=== PATIENT | female | born 1945 | race Caucasian/White ===

== ENCOUNTER → 2018-01-16 09:14 | Outpatient (CLI) | payer MEDICARE, BC, SELFPAY ==
--- NOTE | 2018-01-16 09:17 | RAD_ITS ---
STUDY: X-RAY - RIGHT KNEE REASON FOR EXAM: Knee pain after walking injury 1 month ago. TECHNIQUE: 3 view(s) of the knee. COMPARISON: None. FINDINGS: There is osteopenia. Normal visualized distal femur. There is a band of subchondral sclerosis in the medial tibial plateau. Normal proximal tibiofibular articulation. Normal medial femorotibial compartment. Normal lateral femorotibial compartment. Normal patellofemoral articulation. There is chondrocalcinosis of the medial and lateral menisci. RAD/Knee 4 or More Views IMPRESSION: Band of subchondral sclerosis in the medial tibial plateau, suspicious of an insufficiency fracture. Chondrocalcinosis in the menisci. Electronically Signed: Giovany Joel MD at 15:49 EDT Tel , Service support ,
== END ==
PROVIDERS: Family Provider Internal Medicine; PCP Internal Medicine; Visit Provider Orthopaedic Surgery
DX: M25.561 Pain in right knee (principal)
CPT/HCPCS: 73564

== ENCOUNTER → 2023-08-27 | Outpatient (CLI) | payer MEDICARE, BC, SELFPAY ==
[2023-08-27 17:51] LABS: Pathologist Comment May follow
[2023-08-27 18:29] LABS: Synovial Fld Mononuclear WBC # 0.586 10^3/ul; Synovial Fld Mononuclear WBC % 85.1 %; Synovial Fld Polynuclear WBC # 0.103 10^3/uL; Synovial Fld Polynuclear WBC % 14.9 %
[2023-08-27 19:45] LABS: Lymph 12 %; Monocyte /Synovial Fluid 8 %; Neutrophil 9 % (0-25); Other Cell /Synovial Fluid 71 %
[2023-08-27 19:48] LABS: AUTO B FLUID DILUENT BKGD CT WBC <0.1 RBC <0.01 (W<.1,R<.01); Appearance /Synovial Fluid Cloudy (CLEAR); CRYSTALS, BODY FLUID NO CRYSTALS SEEN; Color / Synovial Fluid AMBER (Pale Yellow); Source / Synovial Fluid LEFT KNEE; Source- Body Fluid SYNOVIAL
[2023-08-27 19:49] LABS: RBC /Synovial Fluid 0.013 10^6/uL (0)
--- OUTSIDE RECORDS SUMMARY | 2023-08-27 20:08 | XMS RPT_ITS | CCD ---
Author Name Unknown Address [address] [place] [address] Organization [facility] Care Team Providers Care Knock Up Assembler Name Role Phone Butler, Loren S Primary Care Unavailable Butler, Loren S Primary Care Unavailable Butler, Loren S Primary Care Unavailable Butler, Loren S Primary Care Unavailable Butler, Loren S Primary Care Unavailable Seth Alexandra Unavailable Unavaila ble Roxane, Avirup Unavailable Unavailable Butler, Loren Unavailable Unavailable Butler, Loren S Unavailable Unavailable Roxane, Avirup Unavailable Unavailable Merari Kevin MD Primary Care Provider [phone] Merari Kevin MD Primary Care Provider [phone] MAYA DURAN Attending Unavailable MERARI KEVIN Primary Care Unavailable Merari Kevin MD Primary Care Provider Sis Orozcoly S Unavailable Unavailable Unavailable Merari Kevin MD Primary Care Provider Merari Kevin MD Primary Care Provider Maya Duran MD Unavailable Santi ANTHONY, Imani Sabry Unavailable [phone] Tyree KENNEDY DO, W. Don Unavailable Merari Kevin MD Primary Care Provider Merari Kevin MD Primary Care Provider Maya Duran MD Unavailable Santi ANTHONY, Imani Sabry Unavailable [phone] Tyree KENNEDY, DO WMinnie Don Unavailable HerberthMerari knott MD Unavailable HerberthMerari knott MD Primary Care Provider [phone] HERBERTH, MERARI Referring Unavailable HERBERTH, MERARI Attending Unavailable HERBERTH, MERARI Primary Care Unavailable KENDRAICARDNEL StubbsO KODI Referring Unavail able TYREERDMATILDA StubbsSTE Attending Unavail able HERBERTH, MERARI Primary Care Unavailable GOMEZ, JAYLONPREET Attending Unavailable HERBERTH, MERARI Primary Care Unavailable Jony Cruz DO Primary Care Provide r JONY CRUZ Referring Unavail able JONY CRUZ Primary Care Unavail able HERBERTH, MERARI Primary Care Unavailable KENDRAICARDINELO KODI Referring Unavail able KENDRAICARDMATILDA StubbsSTE Attending Unavail able HERBERTH, MERARI Primary Care Unavailable BRUNICARDINELO KODI Attending Unavail able BRUNICARDI MATILDA KODI Referring Unavail able HERBERTH, MERARI Primary Care Unavailable VELLANKI, VANNESA Admitting Unavailable HERBERTH, MERARI Primary Care Unavailable DWAYNE GOMEZ Referring Unavailable CONSUELO GARCIA Attending Unavailable LITZY SOMMER Consulting Unavailabl e VELLANKI, VANNESA Attending Unavailable HERBERTH, MERARI Primary Care Unavailable HERBERTH, MERARI Primary Care Unavailable PATEL BLANKENSHIP Attending Unava ilable LE ANGLIN Attending Unavail able LE ANGLIN Admitting Unavail able HERBERTH, MERARI Primary Care Unavailable HERBERTH, MERARI Primary Care Unavailable BRUNICARDI, MATILDA KODI Admitting Unavail able VELLANKI, VANNESA Referring Unavailable HERBERTH, MERARI Primary Care Unavailable BRUNICARDI, MATILDA KODI Admitting Unavail able VELLANKI, VANNESA Referring Unavailable HERBERTH, MERARI Primary Care Unavailable HERBERTH, MERARI Primary Care Unavailable VELLANKI, VANNESA Admitting Unavailable VELLANKI, VANNESA Referring Unavailable JONY CRUZ Primary Care Unavail able HERBERTH, MERARI Primary Care Unavailable BRUNICARDI, MATILDA KODI Admitting Unavail able VELLANKI, VANNESA Referring Unavailable HERBERTH, MERARI Primary Care Unavailable BRUNICARDI, MATILDA KODI Referring Unavail able BRUNICARDI, MATILDA KODI Admitting Unavail able VELLANKI, VANNESA Referring Unavailable HERBERTH, MERARI Primary Care Unavailable BRUNICARDI, MATILDA KODI Admitting Unavail able VELLANKI, VANNESA Referring Unavailable HERBERTH, MERARI Primary Care Unavailable BRUNICARDI, MATILDA KODI Admitting Unavail able FRANCISCO RODARTE Attending Unavailable HERBERTH, MERARI Primary Care Unavailable SELF, SELF Referring Unavailable MUSTAPHA NJ Attending Unavailabl e HERBERTH, MERARI Primary Care Unavailable HERBERTH, MERARI Referring Unavailable MUSTAPHA NJ Attending Unavailabl e HERBERTH, MERARI Primary Care Unavailable HERBERTH, MERARI Referring Unavailable HERBERTH, MERARI Primary Care Unavailable MUSTAPHA NJ Referring Unavailabl e MUSTAPHA NJ Attending Unavailabl e MUSTPAHA NJ Referring Unavailabl e PRESTON VERA Attending Unavailable HERBERTH, MERARI Primary Care Unavailable MUSTAPHA NJ Referring Unavailabl e HERBERTH, MERARI Primary Care Unavailable YELENA POWER Attending Unavailable HERBERTH, MERARI Primary Care Unavailable MAYA DURAN Attending Unavailable LE ANGLIN Attending Unavail able HERBERTH, MERARI Referring Unavailable HERBERTH, MERARI Admitting Unavailable HERBERTH, MERARI Primary Care Unavailable LINNETTELE Attending Unavail able HERBERTH, MERARI Primary Care Unavailable JONY CRUZ Primary Care Unavail able JONY CRUZ Attending Unavail able JONY CRUZ Primary Care Unavail able ANDRIA BERGER Attending Unavailable JONY CRUZ Primary Care Unavail able JONY CRUZ Attending Unavail able ARLENE ANDERSON Attending Unavaila ble HERBERTH, MERARI Primary Care Unavailable BRUNICARDI, MATILDA KODI Attending Unavail able HERBERTH, MERARI Primary Care Unavailable HERBERTH, MERARI Primary Care Unavailable MARCOS HINDS Attending Unavailable HERBERTH, MERARI Primary Care Unavailable HERBERTH, MERARI Attending Unavailable Allergies Allergy Classification Reported Allergen(s) Allergy Type Date of Onset Reaction(s) Facility Sulfamethoxazole / Trimethoprim (3 sources) Sulfamethoxazole / Trimethoprim; Translations: [SULFAMETHOXAZOLE-T RIMETHOPRIM] Drug Allergy 11-30-19 21 [facility] Sulfonamides (antibiotic) (4 sources) Sulfonamides (Antibiotic); Translations: [SULFA (SULFONAMIDE ANTIBIOTICS)] Drug Allergy 11-09-19 21 [facility] (4 sources) Sulfamethoxazole / Trimethoprim; Translations: [Bactrim] Drug Allergy 05-01-[address] Work Phone: (4 sources) Sulfonamides (Antibiotic); Translations: [[facility]] Allergy to drug (finding) [address] Work Phone: (20 sources) Sulfamethoxazole / Trimethoprim; Translations: [SULFAMETHOXAZOLE-T RIMETHOPRIM] Drug Allergy 05-01-[address] [facility] (20 sources) Sulfonamides (Antibiotic); Translations: [SULFA (SULFONAMIDE ANTIBIOTICS)] Propensity to adverse reactions to drug 02-09-20 15 [facility] (20 sources) meloxicam; Translations: [MELOXICAM] Drug Allergy 05-22-20 21 [facility] (7 sources) Sulfonamides (Antibiotic) Propensity to adverse reactions to drug 02-09-20 15 [facility] (1 source) meloxicam Drug Allergy 05-22-20 21 [facility] Medications Current Medications Medication Drug Class(es) Dates Sig (Normalized) Sig (Original) ascorbic acid 1000 mg oral tablet (20 sources) Vitamin C take 1 tablet by zach th once daily ascorbic acid, vitamin C, (VITAMIN C) 1000 MG tablet Take 1 (one) tablet (1,000 mg total) by mouth daily . 0 Active Completed/Discontinued Medications Medication Drug Class(es) Dates Sig (Normalized) Sig (Original) amLODIPine 10 mg oral tablet (19 sources) Dihydropyridine Calcium Channel Elisabeth End: 07-16-2022 take 1 tablet by mouth once daily amLODIPine (NORVASC) 10 MG tablet Take 1 (one) tablet (10 mg total) by mouth daily . 0 07/16/2022 Discontinued Problems Active Problems Problem Classification Problem Date Documented Da te Episodic/Chronic Allergic reactions (4 sources) H/O: non-drug allergy; Translations: [Other allergy, other than to medicinal agents] Episodic Biliary tract disease (3 sources) Cholangiectasis; Translations: [Other specified diseases of biliary tract] Onset: 3 12-05-2022 Chronic Chronic ulcer of skin (1 source) Non-pressure chronic ulcer of other part of right foot with fat layer exposed; Translations: [Ulcer of other part of foot] Chronic Coronary atherosclerosis and other heart disease (20 sources) Coronary arteriosclerosis in [place] artery; Translations: [Atherosclerotic heart disease of [place] coronary artery without angina pectoris] Onset: 6 Chronic Disorders of lipid metabolism (17 sources) Hyperlipidemia; Translations: [Hyperlipidemia, unspecified] Onset: 3 Chronic Essential hypertension (20 sources) Hypertensive disorder; Translations: [Essential (primary) hypertension] Onset: 1 Chronic Gastroduodenal ulcer (except hemorrhage) (9 sources) Gastric ulcer; Translations: [Gastric ulcer, unspecified as acute or chronic, without hemorrhage or perforation] Onset: 3 03-20-2023 Chronic Genitourinary symptoms and ill-defined conditions (1 source) Dysuria; Translations: [Dysuria] Episodic Osteoarthritis (20 sources) Osteoarthritis of finger joint of right hand; Translations: [Primary osteoarthritis, right hand] Onset: 5 11-08-2020 Chronic Osteoporosis (20 sources) Osteoporosis; Translations: [Senile osteoporosis] Onset: 5 Chronic Other aftercare (2 sources) Other retirement (current) drug therapy; Translations: [Other buttermaker (current) drug therapy] Onset: 3 Episodic Other bone disease and musculoskeletal deformities (2 sources) Exostosis; Translations: [Other specified disorders of bone, ankle and foot] Episodic Other circulatory disease (1 source) Thready pulse; Translations: [Other specified symptoms and signs involving the circulatory and respiratory systems] Episodic Other connective tissue disease (5 sources) Pain in right foot; Translations: [Pain in right foot] Episodic Other ear and sense organ disorders (1 source) Cellulitis of pinna ; Translations: [Cellulitis of right external ear] 04-29-2023 Episodic Other eye disorders (16 sources) Disorder of bilateral optic nerves; Translations: [Other disorders of optic nerve, not elsewhere classified, bilateral] Onset: 1 06-10-2022 Chronic Other gastrointestinal disorders (20 sources) Irritable bowel syndrome; Translations: [Irritable bowel syndrome without diarrhea] Onset: 1 02-07-2021 Chronic Other injuries and conditions due to external causes (20 sources) At low risk for fall; Translations: [History of falling] Onset: 1 06-04-2021 Episodic Other injuries and conditions due to external causes (1 source) Foreign body in auricle; Translations: [Foreign body in right ear, initial encounter] 04-29-2023 Episodic Other nervous system disorders (20 sources) Spinal cord disease; Translations: [Disease of spinal cord, unspecified] Onset: 1 06-04-2021 Chronic Other non-traumatic joint disorders (4 sources) Swollen ankle region; Translations: [Effusion, unspecified ankle] Onset: 2 05-09-2022 Episodic Other screening for suspected conditions (not mental disorders or infectious disease) (1 source) Electrocardiogram abnormal; Translations: [Abnormal electrocardiogram [ECG] [EKG]] Episodic Peripheral and visceral atherosclerosis (3 sources) Peripheral vascular disease, unspecified; Translations: [Peripheral vascular disease, unspecified] Chronic Residual codes; unclassified (2 sources) Postoperative state; Translations: [Other specified postprocedural states] Episodic Retinal detachments; defects; vascular occlusion; and retinopathy (18 sources) Bilateral age-related nonexudative macular degeneration; Translations: [Nonexudative age-related macular degeneration, bilateral, stage unspecified] Onset: 0 06-10-2022 Chronic Rheumatoid arthritis and related disease (20 sources) Rheumatoid arthritis; Translations: [Rheumatoid arthritis, unspecified] Onset: 2 Chronic Spondylosis; intervertebral disc disorders; other back problems (6 sources) Other spondylosis, cervical region; Translations: [Other spondylosis, lumbosacral region] Onset: 3 Chronic Unclassified (1 source) [place] [facility] Physician Contact Required; Translations: [[place] [facility] Physician Contact Required] Onset: 3 Past or Other Problems Problem Classification Problem Date Documented Date Episodic/Chronic Abdominal pain (20 sources) Left lower quadrant pain; Translations: [Left lower quadrant pain] Onset: 11-22-2022 01-22-2023 Episodic Biliary tract disease (3 sources) Cholelithiasis with obstruction; Translations: [Calculus of gallbladder without cholecystitis with obstruction] Onset: 01-01-2023 12-05-2022 Episodic Immunizations and screening for infectious disease (20 sources) Patient encounter status; Translations: [Other specified vaccination] Onset: 05-26-2019 06-04-2021 Episodic Results Test Name Value Interpretation Reference Range Facil ity Vital Signs Date Time Vital Sign Value Performing Clinician Adina groves 07-17-2023 10:29-0500 Diastolic blood pressure 92 mm[Hg] Jonydamon Taylorran DO Work Phone: [facility] 07-17-2023 10:29-0500 Heart rate 55 /min Jony Nancy DO Work Phone: [facility] 07-17-2023 10:29-0500 Respiratory rate 16 /min Jony Cruz DO Work Phone: [facility] 07-17-2023 10:29-0500 SaO2% (BldA) [Mass fraction] 95 % Jonydamon GarciaNancy DO Work Phone: [facility] 07-17-2023 10:29-0500 Systolic blood pressure 150 mm[Hg] Jonydamon GarciaNancy DO Work Phone: [facility] 07-17-2023 10:23-0500 Body height 143.5 cm Jony Cruz DO Work Phone: [facility] 07-17-2023 10:23-0500 Body mass index (BMI) [Ratio] 17.44 kg/m2 Jonydamon Taylorran DO Work Phone: [facility] 07-17-2023 10:23-0500 Body temperature 97.81 [degF] Jony Nancy DO Work Phone: [facility] 07-17-2023 10:23-0500 Body weight 35.92 kg Jony Nancy DO Work Phone: [facility] 04-29-2023 10:42-0400 Body height 143.5 cm Andria Berger MD Work Phone: [facility] 04-29-2023 10:42-0400 Body mass index (BMI) [Ratio] 17.53 kg/m2 Andria Berger MD Work Phone: [facility] 04-29-2023 10:42-0400 Body temperature 97.9 [degF] Andria Berger MD Work Phone: [facility] 04-29-2023 10:42-0400 Body weight 36.11 kg Andria Berger MD Work Phone: [facility] 04-29-2023 09:23-0400 Diastolic blood pressure 107 mm[Hg] Jony Nancy DO Work Phone: [facility] 04-29-2023 09:23-0400 Heart rate 97 /min Jony Nancy DO Work Phone: [facility] 04-29-2023 09:23-0400 Systolic blood pressure 158 mm[Hg] Jony Nancy DO Work Phone: [facility] 04-29-2023 09:15-0400 Body height 143.5 cm Jony Nancy DO Work Phone: [facility] 04-29-2023 09:15-0400 Body mass index (BMI) [Ratio] 17.49 kg/m2 Jony Nancy DO Work Phone: [facility] 04-29-2023 09:15-0400 Body temperature 97.7 [degF] Jony Nancy DO Work Phone: [facility] 04-29-2023 09:15-0400 Body weight 36.02 kg Jony Nancy DO Work Phone: [facility] 04-29-2023 09:15-0400 Respiratory rate 16 /min Jony Nancy DO Work Phone: [facility] 03-20-2023 10:49-0400 Body height 143.5 cm eL Anglin MD Work Phone: [facility] 03-20-2023 10:49-0400 Body mass index (BMI) [Ratio] 17.31 kg/m2 Le Anglin MD Work Phone: [facility] 03-20-2023 10:49-0400 Body weight 35.65 kg Le Anglin MD Work Phone: [facility] 03-20-2023 10:49-0400 Diastolic blood pressure 95 mm[Hg] Le Anglin MD Work Phone: [facility] 03-20-2023 10:49-0400 Heart rate 58 /min Le Anglin MD Work Phone: [facility] 03-20-2023 10:49-0400 SaO2% (BldA) [Mass fraction] 91 % Le Anglin MD Work Phone: [facility] 03-20-2023 10:49-0400 Systolic blood pressure 137 mm[Hg] Le Anglin MD Work Phone: [facility] 02-20-2023 11:03-0400 Body height 143.5 cm Le Anglin MD Work Phone: [facility] 02-20-2023 11:03-0400 Body mass index (BMI) [Ratio] 17.31 kg/m2 Le Anglin MD Work Phone: [facility] 02-20-2023 11:03-0400 Body weight 35.65 kg Le Anglin MD Work Phone: [facility] 02-20-2023 11:03-0400 Diastolic blood pressure 94 mm[Hg] Le Anglin MD Work Phone: [facility] 02-20-2023 11:03-0400 Heart rate 62 /min Le Anglin MD Work Phone: [facility] 02-20-2023 11:03-0400 SaO2% (BldA) [Mass fraction] 98 % Le Anglin MD Work Phone: [facility] 02-20-2023 11:03-0400 Systolic blood pressure 143 mm[Hg] Le Anglin MD Work Phone: [facility] 01-21-2023 10:38-0400 Body height 144 cm Mustapha Heaton Work Phone: [facility] 01-21-2023 10:38-0400 Body mass index (BMI) [Ratio] 16.8 kg/m2 Mustapha Nj MD Work Phone: [facility] 01-21-2023 10:38-0400 Body weight 34.84 kg Mustapha Heaton Work Phone: [facility] 01-21-2023 10:38-0400 Diastolic blood pressure 90 mm[Hg] Mustapha Nj MD Work Phone: [facility] 01-21-2023 10:38-0400 Systolic blood pressure 160 mm[Hg] Mustapha Nj MD Work Phone: [facility] 01-14-2023 17:22-0400 Body height 144.8 cm Merari Kevin MD Work Phone: [facility] 01-14-2023 17:22-0400 Body mass index (BMI) [Ratio] 17.01 kg/m2 Merari Kevin MD Work Phone: [facility] 01-14-2023 17:22-0400 Body temperature 98.29 [degF] Merari Kevin MD Work Phone: [facility] 01-14-2023 17:22-0400 Body weight 35.65 kg Merari Kevin MD Work Phone: [facility] 01-14-2023 17:22-0400 Diastolic blood pressure 87 mm[Hg] Merari Kevin MD Work Phone: [facility] 01-14-2023 17:22-0400 Heart rate 58 /min Merari Kevin MD Work Phone: [facility] 01-14-2023 17:22-0400 Respiratory rate 16 /min Merari Kevin MD Work Phone: [facility] 01-14-2023 17:22-0400 SaO2% (BldA) [Mass fraction] 97 % Merari Kevin MD Work Phone: [facility] 01-14-2023 17:22-0400 Systolic blood pressure 130 mm[Hg] Merari Kevin MD Work Phone: [facility] 12-20-2022 09:05-0400 Body temperature 97.3 [degF] [facility] Work Phone: [facility] 12-20-2022 09:05-0400 Diastolic blood pressure 99 mm[Hg] [facility] Work Phone: [facility] 12-20-2022 09:05-0400 Heart rate 55 /min [facility] Work Phone: [facility] 12-20-2022 09:05-0400 Systolic blood pressure 155 mm[Hg] [facility] Work Phone: [facility] 07-16-2022 13:57-0500 Body height 144.8 cm Merari Kevin MD Work Phone: [facility] 07-16-2022 13:57-0500 Body mass index (BMI) [Ratio] 18.39 kg/m2 Merari Kevin MD Work Phone: [facility] 07-16-2022 13:57-0500 Body temperature 98.01 [degF] Merari Kevin MD Work Phone: [facility] 07-16-2022 13:57-0500 Body weight 38.56 kg Merari Kevin MD Work Phone: [facility] 07-16-2022 13:57-0500 Diastolic blood pressure 71 mm[Hg] Merari Kevin MD Work Phone: [facility] 07-16-2022 13:57-0500 Heart rate 69 /min Merari Kevin MD Work Phone: [facility] 07-16-2022 13:57-0500 Respiratory rate 16 /min Merari Kevin MD Work Phone: [facility] 07-16-2022 13:57-0500 SaO2% (BldA) [Mass fraction] 98 % Merari Kevin MD Work Phone: [facility] 07-16-2022 13:57-0500 Systolic blood pressure 104 mm[Hg] Merari Kevin MD Work Phone: [facility] 06-17-2022 12:23-0500 Body mass index (BMI) [Ratio] 17.85 kg/m2 [facility]- Work Phone: [facility] 06-17-2022 12:23-0500 Body temperature 98.29 [degF] [place] [id number] Work Phone: [facility] 06-17-2022 12:23-0500 Body weight 37.01 kg [place] [id number] Work Phone: [facility] 06-17-2022 12:23-0500 Diastolic blood pressure 75 mm[Hg] [facility] Work Phone: [facility] 06-17-2022 12:23-0500 Heart rate 55 /min [facility]- Work Phone: [facility] 06-17-2022 12:23-0500 Respiratory rate 16 /min [facility]- Work Phone: [facility] 06-17-2022 12:23-0500 Systolic blood pressure 131 mm[Hg] [facility] Work Phone: [facility] 06-10-2022 10:29-0500 Body height 144.8 cm Merari Kevin MD Work Phone: [facility] 06-10-2022 10:29-0500 Body mass index (BMI) [Ratio] 17.31 kg/m2 Merari Kevin MD Work Phone: [facility] 06-10-2022 10:29-0500 Body temperature 97.81 [degF] Merari Kevin MD Work Phone: [facility] 06-10-2022 10:29-0500 Body weight 36.29 kg Merari Kevin MD Work Phone: [facility] 06-10-2022 10:29-0500 Diastolic blood pressure 88 mm[Hg] Merari Kevin MD Work Phone: [facility] 06-10-2022 10:29-0500 Heart rate 63 /min Merari Kevin MD Work Phone: [facility] 06-10-2022 10:29-0500 Respiratory rate 16 /min Merari Kevin MD Work Phone: [facility] 06-10-2022 10:29-0500 SaO2% (BldA) [Mass fraction] 94 % Merari Kevin MD Work Phone: [facility] 06-10-2022 10:29-0500 Systolic blood pressure 143 mm[Hg] Merari Kevin MD Work Phone: [facility] 05-13-2022 09:30-0500 Body temperature 98.2 [degF] Imani Ironside DPM Work Phone: [facility] 05-13-2022 09:30-0500 Diastolic blood pressure 82 mm[Hg] Imani Santi DPM Work Phone: [facility] 05-13-2022 09:30-0500 Heart rate 67 /min Imani Santi DPM Work Phone: [facility] 05-13-2022 09:30-0500 Systolic blood pressure 135 mm[Hg] Imani Santi DPM Work Phone: [facility] 05-07-2022 14:35-0400 Body height 144.8 cm Maya Duran MD Work Phone: [facility] 05-07-2022 14:35-0400 Body mass index (BMI) [Ratio] 17.31 kg/m2 Maya Duran MD Work Phone: [facility] 05-07-2022 14:35-0400 Body weight 36.29 kg Maya Duran MD Work Phone: [facility] 05-07-2022 14:35-0400 Diastolic blood pressure 75 mm[Hg] Maya Duran MD Work Phone: [facility] 05-07-2022 14:35-0400 Heart rate 53 /min Maya Duran MD Work Phone: [facility] 05-07-2022 14:35-0400 SaO2% (BldA) [Mass fraction] 99 % Maya Duran MD Work Phone: [facility] 05-07-2022 14:35-0400 Systolic blood pressure 115 mm[Hg] Maya Duran MD Work Phone: [facility] 04-09-2022 10:50-0400 Body temperature 98.4 [degF] Imani Santi DPM Work Phone: [facility] 04-09-2022 10:50-0400 Diastolic blood pressure 74 mm[Hg] Imani Santi DPM Work Phone: [facility] 04-09-2022 10:50-0400 Heart rate 56 /min Imani Ironside DPM Work Phone: [facility] 04-09-2022 10:50-0400 Systolic blood pressure 123 mm[Hg] Imani Santi DPM Work Phone: [facility] 04-01-2022 09:04-0400 Body temperature 97.81 [degF] Imani Santi DPM Work Phone: [facility] 04-01-2022 09:04-0400 Diastolic blood pressure 81 mm[Hg] Imani Ironside DPM Work Phone: [facility] 04-01-2022 09:04-0400 Heart rate 51 /min Imani Santi DPM Work Phone: [facility] 04-01-2022 09:04-0400 Systolic blood pressure 122 mm[Hg] Imani Santi DPM Work Phone: [facility] 02-25-2022 09:01-0400 Diastolic blood pressure 84 mm[Hg] Imani Ironside DPM Work Phone: [facility] 02-25-2022 09:01-0400 Heart rate 66 /min Imani Santi DPM Work Phone: [facility] 02-25-2022 09:01-0400 Systolic blood pressure 132 mm[Hg] Imani Santi DPM Work Phone: [facility] 02-25-2022 08:56-0400 Body temperature 98.4 [degF] Imani Santi DPM Work Phone: [facility] 12-12-2021 11:27-0400 Diastolic blood pressure 82 mm[Hg] Merari Kevin MD Work Phone: [facility] 12-12-2021 11:27-0400 Heart rate 61 /min Merari Kevin MD Work Phone: [facility] 12-12-2021 11:27-0400 SaO2% (BldA) [Mass fraction] 98 % Merari Kevin MD Work Phone: [facility] 12-12-2021 11:27-0400 Systolic blood pressure 152 mm[Hg] Merari Kevin MD Work Phone: [facility] 12-12-2021 11:22-0400 Body height 144.8 cm Merari Kevin MD Work Phone: [facility] 12-12-2021 11:22-0400 Body mass index (BMI) [Ratio] 17.31 kg/m2 Merari Kevin MD Work Phone: [facility] 12-12-2021 11:22-0400 Body temperature 98.49 [degF] Merari Kevin MD Work Phone: [facility] 12-12-2021 11:22-0400 Body weight 36.29 kg Merari Kevin MD Work Phone: [facility] 12-12-2021 11:22-0400 Respiratory rate 16 /min Merari Kevin MD Work Phone: [facility] 11-06-2021 13:39-0400 Body height 144.8 cm Maya Duran MD Work Phone: [facility] 11-06-2021 13:39-0400 Body mass index (BMI) [Ratio] 17.53 kg/m2 Maya Duran MD Work Phone: [facility] 11-06-2021 13:39-0400 Body weight 36.74 kg Maya Duran MD Work Phone: [facility] 11-06-2021 13:39-0400 Diastolic blood pressure 78 mm[Hg] Maya Duran MD Work Phone: [facility] 11-06-2021 13:39-0400 Heart rate 55 /min Maya Duran MD Work Phone: [facility] 11-06-2021 13:39-0400 SaO2% (BldA) [Mass fraction] 98 % Maya Duran MD Work Phone: [facility] 11-06-2021 13:39-0400 Systolic blood pressure 113 mm[Hg] Maya Duran MD Work Phone: [facility] 07-24-2021 13:27-0500 Body temperature 97.7 [degF] Imani Santi DPM Work Phone: [facility] 07-24-2021 13:27-0500 Diastolic blood pressure 76 mm[Hg] Imani Santi DPM Work Phone: [facility] 07-24-2021 13:27-0500 Heart rate 60 /min Imani Santi DPM Work Phone: [facility] 07-24-2021 13:27-0500 Systolic blood pressure 119 mm[Hg] Imani Ironside DPM Work Phone: [facility] 06-04-2021 10:25-0500 Body height 144.8 cm Merari Kevin MD Work Phone: [facility] 06-04-2021 10:25-0500 Body mass index (BMI) [Ratio] 17.74 kg/m2 Merari Kevin MD Work Phone: [facility] 06-04-2021 10:25-0500 Body temperature 98.49 [degF] Merari Kevin MD Work Phone: [facility] 06-04-2021 10:25-0500 Body weight 37.2 kg Merari Kevin MD Work Phone: [facility] 06-04-2021 10:25-0500 Diastolic blood pressure 81 mm[Hg] Merari Kevin MD Work Phone: [facility] 06-04-2021 10:25-0500 Heart rate 82 /min Merari Kevin MD Work Phone: [facility] 06-04-2021 10:25-0500 Respiratory rate 16 /min Merari Kevin MD Work Phone: [facility] 06-04-2021 10:25-0500 Systolic blood pressure 114 mm[Hg] Merari Kevin MD Work Phone: [facility] 06-04-2021 09:22-0500 Body temperature 95.7 [degF] Imani Ironside DPM Work Phone: [facility] 06-04-2021 09:22-0500 Diastolic blood pressure 85 mm[Hg] Imani Santi DPM Work Phone: [facility] 06-04-2021 09:22-0500 Heart rate 51 /min Imani Santi DPM Work Phone: [facility] 06-04-2021 09:22-0500 Systolic blood pressure 127 mm[Hg] Imani Ironside DPM Work Phone: [facility] 05-22-2021 09:29-0500 Body height 144.8 cm Maya Duran MD Work Phone: [facility] 05-22-2021 09:29-0500 Body mass index (BMI) [Ratio] 17.53 kg/m2 Maya Duran MD Work Phone: [facility] 05-22-2021 09:29-0500 Body weight 36.74 kg Maya Duran MD Work Phone: [facility] 05-22-2021 09:29-0500 Diastolic blood pressure 76 mm[Hg] Maya Duran MD Work Phone: [facility] 05-22-2021 09:29-0500 Heart rate 53 /min Maya Duran MD Work Phone: [facility] 05-22-2021 09:29-0500 SaO2% (BldA) [Mass fraction] 96 % Maya Duran MD Work Phone: [facility] 05-22-2021 09:29-0500 Systolic blood pressure 123 mm[Hg] Maya Duran MD Work Phone: [facility] 03-26-2021 10:51-0400 Body temperature 98.1 [degF] Imani Santi DPM Work Phone: [facility] 03-26-2021 10:51-0400 Diastolic blood pressure 61 mm[Hg] Imani Ironside DPM Work Phone: [facility] 03-26-2021 10:51-0400 Heart rate 55 /min Imani Ironside DPM Work Phone: [facility] 03-26-2021 10:51-0400 Systolic blood pressure 101 mm[Hg] Imani Ironside DPM Work Phone: [facility] 02-07-2021 11:02-0400 Body height 145.4 cm Merari Kevin MD Work Phone: [facility] 02-07-2021 11:02-0400 Body mass index (BMI) [Ratio] 18.41 kg/m2 Merari Kevin MD Work Phone: [facility] 02-07-2021 11:02-0400 Body temperature 97.81 [degF] Merari Kevin MD Work Phone: [facility] 02-07-2021 11:02-0400 Body weight 38.92 kg Merari Kevin MD Work Phone: [facility] 02-07-2021 11:02-0400 Diastolic blood pressure 81 mm[Hg] Merari Kevin MD Work Phone: [facility] 02-07-2021 11:02-0400 Heart rate 59 /min Merari Kevin MD Work Phone: [facility] 02-07-2021 11:02-0400 Respiratory rate 16 /min Merari Kevin MD Work Phone: [facility] 02-07-2021 11:02-0400 SaO2% (BldA) [Mass fraction] 98 % Merari Kevin MD Work Phone: [facility] 02-07-2021 11:02-0400 Systolic blood pressure 119 mm[Hg] Merari Kevin MD Work Phone: [facility] 11-29-2020 14:37-0400 Body height 145.4 cm Maya Duran MD Work Phone: [facility] 11-29-2020 14:37-0400 Body mass index (BMI) [Ratio] 18.23 kg/m2 Maya Duran MD Work Phone: [facility] 11-29-2020 14:37-0400 Body weight 38.56 kg Maya Duran MD Work Phone: [facility] 05-26-2021 14:37-0400 Diastolic blood pressure 74 mm[Hg] Maya Duran MD Work Phone: [facility] 11-29-2020 14:37-0400 Heart rate 51 /min Maya Duran MD Work Phone: [facility] 11-29-2020 14:37-0400 SaO2% (BldA) [Mass fraction] 99 % Maya Duran MD Work Phone: [facility] 11-29-2020 14:37-0400 Systolic blood pressure 116 mm[Hg] Maya Duran MD Work Phone: [facility] 11-08-2020 09:01-0400 Diastolic blood pressure 81 mm[Hg] Merari Kevin MD Work Phone: [facility] 11-08-2020 09:01-0400 Systolic blood pressure 166 mm[Hg] Merari Kevin MD Work Phone: [facility] 11-08-2020 08:56-0400 Body height 145.4 cm Merari Kevin MD Work Phone: [facility] 11-08-2020 08:56-0400 Body mass index (BMI) [Ratio] 18.73 kg/m2 Merari Kevin MD Work Phone: [facility] 11-08-2020 08:56-0400 Body temperature 97.59 [degF] Merari Kevin MD Work Phone: [facility] 11-08-2020 08:56-0400 Body weight 39.6 kg Merari Kevin MD Work Phone: [facility] 11-08-2020 08:56-0400 Heart rate 51 /min Merari Kevin MD Work Phone: [facility] 11-08-2020 08:56-0400 Respiratory rate 16 /min Merari Kevin MD Work Phone: [facility] 11-08-2020 08:56-0400 SaO2% (BldA) [Mass fraction] 97 % Merari Kevin MD Work Phone: [facility] Encounters Encounter Date Encounter Type Care Provider Facility Start: 07-17-2023 End: 07-17-2023 ambulatory JONY CRUZ [facility] Start: 07-17-2023 End: 07-17-2023 Encounter for general adult medical examination without abnormal findings JONY PATY NANCY [facility] Start: 07-17-2023 End: 07-17-2023 Patient encounter procedure Jony Cruz DO Work Phone: [facility] Procedures Date Procedure Procedure Detail Performing Clinician Start: 01-17-2023 Arthrocentesis aspir &/inj major jt/bursa w/o us Clint Aceves PAC Work Phone: Start: 01-15-2023 Follow-up visit Follow-up PINEDA DURAN Start: 06-10-2022 Adult depression scr eening assessment Merari Kevin MD Work Phone: Start: 05-27-2022 Arthrocentesis aspir &/inj major jt/bursa w/o us Jenny Nettles PA-C Work Phone: Start: 01-15-2022 Arthrocentesis aspir &/inj major jt/bursa w/o us Roni Farrell PA-C Work Phone: Start: 07-24-2021 APPLY DRESSING Imani Delilah Hancock DPM Work Phone: Start: 02-23-2021 Radiologic exam knee complete 4/more views Radha Childs PA-C Work Phone: Start: 01-29-2021 Dxa bone density michael dy 1/> sites axial leyla Nj MD Work Phone: Start: 01-29-2021 Mammography Merari Kevin MD Work Phone: Start: 11-29-2020 Ecg routine ecg w/le ast 12 lds w/i&r Maya Duran MD Work Phone: Start: 11-08-2020 Adult depression scr eening assessment Merari Kevin MD Work Phone: Start: 09-21-2020 Follow-up visit Start: 08-29-2020 Follow-up visit Start: 03-23-2020 Follow-up visit Start: 03-23-2020 Medicare Annual Well ness Visit Start: 09-16-2019 Basic metabolic 1998 panel - Serum or Plasma Khalebabs ortiziy-JWHXTI-Tekim Appendectomy Geethaaled Ruperto D-Angelia Augmentation mammoplasty Geovanny led Ibrahima Cardiac catheterization Khal ed Ibrahima Plan of Treatment Date Care Activity Detail Author Start: 10-31-2032 Tetanus vaccination [facility] Start: 07-17-2024 Fall risk assessment Falls Risk Assessment [facility] Start: 07-17-2024 History and physical examination, annual for health maintenance Wellness Visit [facility] Start: 07-14-2024 Fall risk assessment Falls Risk Assessment [facility] Start: 01-20-2024 End: 01-20-2024 Patient encounter procedure 01/20/2024 10:45 AM EDT Office Visit Endocrinology Outpatient Care [facility] [address] [place] [address] Mustapha Nj MD [address] [place] [address] Endocrinology Outpatient Care [facility] Start: 01-10-2024 Tetanus vaccination [facility] Start: 12-16-2023 End: 12-16-2023 Patient encounter procedure 12/16/2023 10:30 AM EDT Office Visit [facility] [address] [place] [address] Jony Cruz, [address] [place] [address] [facility] Start: 11-04-2023 End: 11-04-2023 Patient encounter procedure 11/04/2023 9:20 AM EDT Office Visit [facility] [address] [place] [phone] Maya Duran MD [address] [place] [address] [facility] Start: 07-17-2023 End: 07-17-2023 Patient encounter procedure 07/17/2023 10:30 AM EST Office Visit [facility] [address] [place] [address] Jony Cruz DO [address] [place] [address] [facility] Start: 06-20-2023 End: 06-20-2023 Patient encounter procedure 06/20/2023 9:30 AM EST Infusion Visit [facility]fusion Outpatient Care [address] [address] Infusion Outpatient Care [facility] Start: 06-10-2023 Depression screening using PHQ-9 (Patient Health Questionnaire 9) score Depression Screening (PHQ-2/9) [facility] Start: 06-10-2023 Fall risk assessment Falls Risk Assessment [facility] Start: 06-10-2023 History and physical examination, annual for health maintenance Wellness Visit [facility] Start: 04-22-2023 End: 04-22-2023 Patient encounter procedure 04/22/2023 5:20 PM EDT Office Visit [facility] [address] [place] [address] Merari Kevin MD [address] [address] [facility] Start: 03-07-2023 Influenza vaccination [facility] Start: 02-26-2023 End: 02-26-2023 Admission to same day surgery center 02/26/2023 7:50 AM EDT - 02/26/2023 8:20 AM EDT Surgery [facility] [address] [place] [address] Le Anglin MD [address] [place] [address] ESOPHAGOGASTRODUODENOSCOPY [facility] Immunizations Immunization Date Immunization Notes Care Provider Fa cility 10-31-2022 tetanus toxoid, redu garrett diphtheria toxoid, and acellular pertussis vaccine, adsorbed Matilda Chi MD Work Phone: [facility] 09-08-2020 Stef COVID-19 Vaccine 0.5 ML Intramuscular Suspension Loren Ghosh Butler Work Phone: [facility]-Cuvdlqcjun[facility] Work Phone: 01-09-2014 tetanus toxoid, redu garrett diphtheria toxoid, and acellular pertussis vaccine, adsorbed Seth eh-EHLUHD-Vbhoy DP-Rrvnlwltme-[address]sek [address] Work Phone: Payers Date Payer Category Payer Unknown [id number] 2017 Unknown [id number] 2017 Unknown 2017 Medicare [id number] 2017 Medicare [id number] 2017 Medicare [id number]. [id number] 1946 Unknown [id number] 2.16. 840.1.131755.3.579.2.356 1946 Unknown [id number] 2.16. 840.1.032206.3.579.2.356 1946 Unknown [id number] 2.16. 840.1.739391.3.579.2.356 1946 Unknown [id number] 2.16. 840.1.884088.3.579.2.903 1946 Unknown [id number] 2.16. 840.1.206364.3.579.2.902 1946 Unknown [id number] 2.16. 840.1.250733.3.579.2.2 1946 Unknown [id number] 2.16. 840.1.715716.3.579.2.902 1946 Unknown [id number] 2.16. 840.1.641359.3.579.2.903 1946 Unknown [id number] 2.16. 840.1.444096.3.579.2. 1946 Unknown [id number] 2.16. 840.1.654631.3.579.2.903 1946 Unknown [id number] 2.16. 840.1.532429.3.579.2. 1946 Unknown [id number] 2.16. 840.1.987693.3.579.2.903 1946 Unknown [id number] 2.16. 840.1.039550.3.579.2.3 1946 Unknown [id number] 2.16. 840.1.991272.3.579.2.903 1946 Unknown [id number] 2.16. 840.1.848036.3.579.2.3 1946 Unknown [id number] 2.16. 840.1.602491.3.579.2.903 1946 Unknown [id number] 2.16. 840.1.783427.3.579.2.903 1946 Unknown [id number] 2.16. 840.1.316280.3.579.2.903 1946 Unknown [id number] 2.16. 840.1.602458.3.579.2.3 1946 Unknown [id number] 2.16. 840.1.508682.3.579.2.903 1946 Unknown [id number] 2.16. 840.1.010738.3.579.2.903 1946 Unknown [id number] 2.16. 840.1.975943.3.579.2.903 1946 Unknown [id number] 2.16. 840.1.954469.3.579.2.903 1946 Unknown [id number] 2.16. 840.1.536868.3.579.2.903 1946 Unknown [id number] 2.16. 840.1.204754.3.579.2.594 1946 Unknown [id number] 2.16. 840.1.854512.3.579.2.594 1946 Unknown [id number] 2.16. 840.1.862906.3.579.2.594 1946 Unknown [id number] 2.16. 840.1.806305.3.579.2.594 1946 Unknown [id number] 2.16. 840.1.520295.3.579.2.594 1946 Unknown [id number] 2.16. 840.1.408336.3.579.2.594 1946 Unknown [id number] 2.16. 840.1.211715.3.579.2.903 1946 Unknown [id number] 2.16. 840.1.304815.3.579.2.903 1946 Unknown [id number] 2.16. 840.1.913021.3.579.2.903 1946 Unknown [id number] 2.16. 840.1.449325.3.579.2.903 1946 Unknown [id number] 2.16. 840.1.142262.3.579.2.903 1946 Unknown [id number] 2.16. 840.1.639056.3.579.2.903 1946 Unknown [id number] 2.16. 840.1.691351.3.579.2.903 1946 Unknown [id number] 2.. 840.1.322342.3.579.2.903 1946 Unknown [id number] 2.16. 840.1.615000.3.579.2.903 1946 Unknown [id number] 2.. 840.1.118975.3.579.2.903 Private Health Insurance [id number] Unknown [id number] Social History Date Type Detail Facility Start: 11-08-2020 End: 01-21-2023 Tobacco smoking status WIIS Never smoker [facility] Start: 11-08-2020 End: 05-09-2022 Tobacco use and exposure Never used [facility] Start: 11-08-2020 End: 07-17-2023 Alcohol intake Current drinker of alcohol (finding) [facility] Start: 11-08-2020 History SDOH Alcohol Frequency 4 [facility] Start: 11-08-2020 History SDOH Alcohol Std Drinks 1 [facility] Start: 1945 Sex Assigned At Not on file [facility] Start: 10-27-2021 End: 12-03-2022 Exposure to SARS-CoV-2 (event) Not sure [facility] Start: 11-29-2020 End: 05-09-2022 Tobacco smoking status WIIS Former smoker [facility] End: 07-07-1979 History of tobacco use Current smoker [facility] Start: 11-29-2020 Alcohol Comment occasional [facility] Start: 09-26-2020 End: 06-10-2022 Former smoker, stopped smoking in distant past Former smoker, stopped smoking in distant past [facility] End: 07-07-1979 History of tobacco use Cigarette Smoker [facility] Start: 10-09-2021 History SDOH Alcohol Comment Wine on occasion. [facility] Start: 03-25-2022 Alcohol Comment GLASS OF WINE 3 DAYS A WEEK [facility] Start: 06-07-2022 End: 06-17-2022 Exposure to SARS-CoV-2 (event) Unable to assess [facility] Start: 11-08-2020 End: 06-10-2022 Alcohol Use Disorder Identification Test - Consumption [AUDIT-C] [facility] How often to you hav e a drink containing alcohol? 2-3 time sa week [facility] How many standard dr inks containing alcohol do you have on a typical day? 1 or 2 [facility] How often do you hav e 6 or more drinks on 1 occasion? Never [facility] Adult Depression Screening Assessment 1 [facility] Start: 12-17-2016 Gender identity Identifies as female gender (finding) [facility] Start: 10-26-2020 Sexual orientation Heterosexua l (finding) [facility] Start: 11-30-2019 Sexual orientation Choose not to disclose [facility] NEGATED: Highlighted row - - WI-Hbqmtonssg-Llhkl [address] Work Phone: Medical Equipment Procedure Code Equipment Code Equipment Origin al Text Equipment Identifier Dates 22 Gauge Dental Wire [id number] Star t: 04-25-2015 Finger [place] Implant Size 2 - [id number] Start: 04-30-2017 Goals Date Patient Goal Desired Activity /State Personal health goal Functional Status Date Assessment Result Facility NEGATED: Highlighted row Functional performance Functional status health issues are not documented Disease SC-Yjyubqcnko-[address]pris [address] Work Phone: Mental Status Date Assessment Result Facility NEGATED: Highlighted row Cognitive function [Interpretation] Cognitive status health issues are not documented Disease RB-Nuykrdoeia-Jryofw d [address] Work Phone: Clinical Notes 11-08-2020 to 07-17-2023 Assessment & Plan Note - Jony Cruz, - 07/17/2023 12:19 PM ESTAssessment & Plan Note - Jony Cruz, - 07/17/2023 12:19 PM ESTPatient Instructions Note Date & Type Note Facility 07-17-2023 Evaluation + Plan note Associated Problem(s): Medicare annual wellness visit, subsequent Annual visit performed today; low risk for falls, mini-cog normal. Care gaps and lifestyle discussed. [facility] 07-17-2023 Miscellaneous Notes Associated Problem(s): Medicare annual wellness visit, subsequent Annual visit performed today; low risk for falls, mini-cog normal. Care gaps and lifestyle discussed. Associated Problem(s): Peptic ulcer disease EGD in Feb 2023 showed 1 small superficial ulcer, otherwise unremarkable. Symptoms mostly controlled on turmeric supplementation alone. No longer on omeprazole. Advised patient of lifestyle modifications to improve GERD. Can use Pepcid for breakthrough symptoms if needed. Advised patient to let us know if her symptoms are becoming more frequent. Associated Problem(s): Essential hypertension Mostly controlled on current hydrochlorothiazide 12.5 mg daily, and Toprol 25 mg daily. Advised patient to continue current medication for now. Continue ambulatory monitoring. She recently obtained a wrist cuff, advised her to bring in cuff to ensure accuracy against our clinic cuff. Discussed lifestyle modifications for improving hypertension. documented in this encounter [facility] 07-17-2023 Evaluation + Plan note Associated Problem(s): Peptic ulcer disease EGD in Feb 2023 showed 1 small superficial ulcer, otherwise unremarkable. Symptoms mostly controlled on turmeric supplementation alone. No longer on omeprazole. Advised patient of lifestyle modifications to improve GERD. Can use Pepcid for breakthrough symptoms if needed. Advised patient to let us know if her symptoms are becoming more frequent. [facility] 07-17-2023 Evaluation + Plan note Associated Problem(s): Essential hypertension Mostly controlled on current hydrochlorothiazide 12.5 mg daily, and Toprol 25 mg daily. Advised patient to continue current medication for now. Continue ambulatory monitoring. She recently obtained a wrist cuff, advised her to bring in cuff to ensure accuracy against our clinic cuff. Discussed lifestyle modifications for improving hypertension. [facility] 07-17-2023 History of Present illness Narrative Subjective: Maddi Michele is a 78 y.o. female here for a Medicare Annual Wellness Visit and follow-up on HTN/GERD and other medical problems. Additional concerns addressed at today's visit - patient aware additional codes may be added if additional topics covered at today's Medicare Annual Wellness Visit and they may be responsible for part of charges depending on their coverage policy. Overall doing well - denies significant concerns GERD - has stopped omeprazole, now on turmeric supplementation and she feels her symptoms are fairly well controlled on this alone. Occasionally will have breakthrough GERD once per week, but she was not aware of all the possible offending foods. HTN - has been checking at home, most often seems to be in 130s/60s or so, but occasionally will have some spikes up to 150s systolic. Denies any s/s of hypotension or hypertension. Review of Systems Reviewed by Provider: Tobacco Allergies Meds Problems Med Hx Surg Hx Fam Hx Care Team Patient Care Team: Jony Cruz DO as PCP - General (Internal Medicine) Maya Duran MD (Cardiology) Imani Hancock DPM as Consulting Physician (Podiatry) Miquel Clements III, DO as Consulting Physician (Vascular Surgery) Pharmacy / Equipment Co. (DME) [id number] - [place], [place] - [address] [place] [id number] Medicare Risk Assessment Do you have an Advanced Directive (Living Will and/or Durable Power of [employer] for Health Care)? If not, would you like more information about Advanced Directives?: No- I do not want more information What is your exercise level?: Moderate (like brisk walking) What is your diet?: Regular Can you prepare your own meals?: Yes Do you have trouble with finding transportation?: No Because of any health problems, do you need the help of another person with your personal care needs? (For example, eating, bathing, dressing, or getting around the house.): No During the past four weeks, how would you rate your health in general?: Very Good Whether or not you use a hearing aid, do you think you have a hearing problem or do others think you have a hearing problem?: No Whether or not you use glasses or contacts, do you have difficulty driving, watching television, reading, or doing any of your daily activities because of your eyesight?: No In the past six months, have you had an unexplained weight loss of 10 pounds or more?: No Do you take your medications as prescribed?: I do not miss doses of my medications During the past four weeks, how much have you been bothered by emotional problems such as feeling anxious, depressed, irritable, sad, or downhearted and blue?: Not at all During the past four weeks, has your physical and emotional health limited your social activites with family, friends, neighbors, or groups? : Not at all Provider/Supplier Name and Specialty: Dr. Duran, Dr. Angeles, Dr. Henao, Dr. Ramires Falls Risk Assessment Is Patient Ambulatory?: Y Fell in past year: 0 (No) Unsteady when walks: 0 (No) Worried about fallin (No) Advised to use cane/walker?: 0 (No) Holds onto furniture/aguilar: 0 (No) Uses hands to stand up from a chair: 0 (No) Trouble stepping onto curb: 0 (No) Rushes to toilet: 0 (No) Lost feeling in feet: 0 (No) Medicine makes me light-headed: 0 (No) Medicine for sleep or mood: 0 (No) Often feel sad/depressed: 0 (No) Patient Self Risk Assessment Score: 0 Have you had your vision checked in the past 12 months?: No Medicare Mini Cog Step 1: Three Word Registration Version Used: Version 1: Banana, [place], Chair Step 2: Clock Drawing Step 2 score: Normal clock - 2 points Clock has all numbers placed in the correct sequence & position (e.g., 12, 3, 6 and 9 are in anchor positions) with no missing or duplicate numbers. Hands are pointing to the 11 & 2 (11:10). Hand length is not scored. Step 3: Three Word Recall Step 3: Three Word Recall Score: 3 Words Recalled Total score = Word Recall score + Clock Draw score A cut point of <3 on the Mini-Cog has been validated for dementia screening, but many individuals with clinically meaningful cognitive impairment will score higher. A cut point of <4 may indicate a need for further evaluation of cognitive status.: 5 5-Year Plan: Health Maintenance Topic Date Due Depression Screening (PHQ-2/9) 06/10/2023 Falls Risk Assessment 07/14/2024 Wellness Visit 07/17/2024 Tetanus: Every 10yrs 10/31/2032 Hepatitis C Screening Completed Dexa Scan Completed Colorectal Cancer Screening/Monitoring Discontinued Pneumococcal Vaccine: Age 65+ Discontinued Mammogram Discontinued Zoster Vaccines Discontinued Sequential Influenza Vaccine Discontinued COVID-19 Vaccine Discontinued Immunization History Administered Date(s) Administered [employer] SARS-CoV-2 Vaccination 09/08/2020 Tdap 01/09/2014, 01/09/2014, 10/31/2022 Objective: BP (!) 150/92 (BP Location: Left arm, Patient Position: Sitting, BP Cuff Size: Adult) Pulse (!) 55 Temp 97.8 F (36.6 C) (Infrared) Resp 16 Ht 4' 8.5 Wt 35.9 kg (79 lb 3.2 oz) SpO2 95% BMI 17.44 kg/m Hearing/Vision Screen No results found. Physical Exam Vitals and nursing note reviewed. Constitutional: General: She is not in acute distress. Appearance: Normal appearance. She is well-developed. She is not ill-appearing, toxic-appearing or diaphoretic. HENT: Head: Normocephalic and atraumatic. Right Ear: External ear normal. Left Ear: External ear normal. Nose: Nose normal. Eyes: General: Vision grossly intact. Gaze aligned appropriately. Extraocular Movements: Extraocular movements intact. Conjunctiva/sclera: Conjunctivae normal. Right eye: Right conjunctiva is not injected. No exudate. Left eye: Left conjunctiva is not injected. No exudate. Pupils: Pupils are equal, round, and reactive to light. Cardiovascular: Rate and Rhythm: Normal rate and regular rhythm. Heart sounds: S1 normal and S2 normal. No murmur heard. No friction rub. No gallop. No S3 or S4 sounds. Pulmonary: Effort: Pulmonary effort is normal. No tachypnea, accessory muscle usage or respiratory distress. Breath sounds: No decreased air movement or transmitted upper airway sounds. No decreased breath sounds, wheezing, rhonchi or rales. Musculoskeletal: General: No tenderness. Right lower leg: No edema. Left lower leg: No edema. Skin: General: Skin is warm and dry. Findings: No rash. Neurological: General: No focal deficit present. Mental Status: She is alert and oriented to person, place, and time. Mental status is at baseline. Motor: Motor function is intact. No tremor or abnormal muscle tone. Coordination: Coordination is intact. Gait: Gait is intact. Psychiatric: Attention and Perception: Attention and perception normal. Mood and Affect: Mood and affect normal. Speech: Speech normal. Behavior: Behavior normal. Thought Content: Thought content normal. Cognition and Memory: Cognition and memory normal. Judgment: Judgment normal. Assessment/Plan: Problem List Medicare annual wellness visit, subsequent - Primary Annual visit performed today; low risk for falls, mini-cog normal. Care gaps and lifestyle discussed. Essential hypertension Mostly controlled on current hydrochlorothiazide 12.5 mg daily, and Toprol 25 mg daily. Advised patient to continue current medication for now. Continue ambulatory monitoring. She recently obtained a wrist cuff, advised her to bring in cuff to ensure accuracy against our clinic cuff. Discussed lifestyle modifications for improving hypertension. Peptic ulcer disease EGD in Feb 2023 showed 1 small superficial ulcer, otherwise unremarkable. Symptoms mostly controlled on turmeric supplementation alone. No longer on omeprazole. Advised patient of lifestyle modifications to improve GERD. Can use Pepcid for breakthrough symptoms if needed. Advised patient to let us know if her symptoms are becoming more frequent. Vaccination counseling provided but patient/guardian declined. Return in about 6 months (around 01/15/2024) for Follow Up HTN, GERD. Patient Instructions (the written plan) and additional handouts provided to the patient with their After Visit Summary. In addition to an annual wellness visit, an E&M visit was also completed. documented in this encounter [facility] 07-17-2023 History of Present illness Narrative Subjective: Maddi Michele is a 78 y.o. female here for a Medicare Annual Wellness Visit and follow-up on HTN/GERD and other medical problems. Additional concerns addressed at today's visit - patient aware additional codes may be added if additional topics covered at today's Medicare Annual Wellness Visit and they may be responsible for part of charges depending on their coverage policy. Overall doing well - denies significant concerns GERD - has stopped omeprazole, now on turmeric supplementation and she feels her symptoms are fairly well controlled on this alone. Occasionally will have breakthrough GERD once per week, but she was not aware of all the possible offending foods. HTN - has been checking at home, most often seems to be in 130s/60s or so, but occasionally will have some spikes up to 150s systolic. Denies any s/s of hypotension or hypertension. Review of Systems Reviewed by Provider: Tobacco Allergies Meds Problems Med Hx Surg Hx Fam Hx Care Team Patient Care Team: Jony Cruz DO as PCP - General (Internal Medicine) Maya Duran MD (Cardiology) Imani Hancock DPM as Consulting Physician (Podiatry) Miquel Clements III, DO as Consulting Physician (Vascular Surgery) Pharmacy [facility] Equipment [facility] (DME) [id number] - [address] [id number] Medicare Risk Assessment Do you have an Advanced Directive (Living Will and/or Durable Power of [employer] Operator for Health Care)? If not, would you like more information about Advanced Directives?: No- I do not want more information What is your exercise level?: Moderate (like brisk walking) What is your diet?: Regular Can you prepare your own meals?: Yes Do you have trouble with finding transportation?: No Because of any health problems, do you need the help of another person with your personal care needs? (For example, eating, bathing, dressing, or getting around the house.): No During the past four weeks, how would you rate your health in general?: Very Good Whether or not you use a hearing aid, do you think you have a hearing problem or do others think you have a hearing problem?: No Whether or not you use glasses or contacts, do you have difficulty driving, watching television, reading, or doing any of your daily activities because of your eyesight?: No In the past six months, have you had an unexplained weight loss of 10 pounds or more?: No Do you take your medications as prescribed?: I do not miss doses of my medications During the past four weeks, how much have you been bothered by emotional problems such as feeling anxious, depressed, irritable, sad, or downhearted and blue?: Not at all During the past four weeks, has your physical and emotional health limited your social activites with family, friends, neighbors, or groups? : Not at all Provider/Supplier Name and Specialty: Dr. Duran, Dr. Angeles, Dr. Henao, Dr. Ramires Falls Risk Assessment Is Patient Ambulatory?: Y Fell in past year: 0 (No) Did any of these falls result in an injury?: No Unsteady when walks: 0 (No) Worried about fallin (No) Advised to use cane/walker?: 0 (No) Holds onto furniture/aguilar: 0 (No) Uses hands to stand up from a chair: 0 (No) Trouble stepping onto curb: 0 (No) Rushes to toilet: 0 (No) Lost feeling in feet: 0 (No) Medicine makes me light-headed: 0 (No) Medicine for sleep or mood: 0 (No) Often feel sad/depressed: 0 (No) Patient Self Risk Assessment Score: 0 Have you had your vision checked in the past 12 months?: No Medicare Mini Cog Step 1: Three Word Registration Version Used: Version 1: [place]ana, [place], Chair Step 2: Clock Drawing Step 2 score: Normal clock - 2 points Clock has all numbers placed in the correct sequence & position (e.g., 12, 3, 6 and 9 are in anchor positions) with no missing or duplicate numbers. Hands are pointing to the 11 & 2 (11:10). Hand length is not scored. Step 3: Three Word Recall Step 3: Three Word Recall Score: 3 Words Recalled Total score = Word Recall score + Clock Draw score A cut point of <3 on the Mini-Cog has been validated for dementia screening, but many individuals with clinically meaningful cognitive impairment will score higher. A cut point of <4 may indicate a need for further evaluation of cognitive status.: 5 5-Year Plan: Health Maintenance Topic Date Due Depression Screening (PHQ-2/9) 06/10/2023 Falls Risk Assessment 07/14/2024 Wellness Visit 07/17/2024 Tetanus: Every 10yrs 10/31/2032 Hepatitis C Screening Completed Dexa Scan Completed Colorectal Cancer Screening/Monitoring Discontinued Pneumococcal Vaccine: Age 65+ Discontinued Mammogram Discontinued Zoster Vaccines Discontinued Sequential Influenza Vaccine Discontinued COVID-19 Vaccine Discontinued Immunization History Administered Date(s) Administered Stef SARS-CoV-2 Vaccination 09/08/2020 Tdap 01/09/2014, 01/09/2014, 10/31/2022 Objective: BP (!) 150/92 (BP Location: Left arm, Patient Position: Sitting, BP Cuff Size: Adult) Pulse (!) 55 Temp 97.8 F (36.6 C) (Infrared) Resp 16 Ht 4' 8.5 Wt 35.9 kg (79 lb 3.2 oz) SpO2 95% BMI 17.44 kg/m Hearing/Vision Screen No results found. Physical Exam Vitals and nursing note reviewed. Constitutional: General: She is not in acute distress. Appearance: Normal appearance. She is well-developed. She is not ill-appearing, toxic-appearing or diaphoretic. HENT: Head: Normocephalic and atraumatic. Right Ear: External ear normal. Left Ear: External ear normal. Nose: Nose normal. Eyes: General: Vision grossly intact. Gaze aligned appropriately. Extraocular Movements: Extraocular movements intact. Conjunctiva/sclera: Conjunctivae normal. Right eye: Right conjunctiva is not injected. No exudate. Left eye: Left conjunctiva is not injected. No exudate. Pupils: Pupils are equal, round, and reactive to light. Cardiovascular: Rate and Rhythm: Normal rate and regular rhythm. Heart sounds: S1 normal and S2 normal. No murmur heard. No friction rub. No gallop. No S3 or S4 sounds. Pulmonary: Effort: Pulmonary effort is normal. No tachypnea, accessory muscle usage or respiratory distress. Breath sounds: No decreased air movement or transmitted upper airway sounds. No decreased breath sounds, wheezing, rhonchi or rales. Musculoskeletal: General: No tenderness. Right lower leg: No edema. Left lower leg: No edema. Skin: General: Skin is warm and dry. Findings: No rash. Neurological: General: No focal deficit present. Mental Status: She is alert and oriented to person, place, and time. Mental status is at baseline. Motor: Motor function is intact. No tremor or abnormal muscle tone. Coordination: Coordination is intact. Gait: Gait is intact. Psychiatric: Attention and Perception: Attention and perception normal. Mood and Affect: Mood and affect normal. Speech: Speech normal. Behavior: Behavior normal. Thought Content: Thought content normal. Cognition and Memory: Cognition and memory normal. Judgment: Judgment normal. Assessment/Plan: Problem List Medicare annual wellness visit, subsequent - Primary Annual visit performed today; low risk for falls, mini-cog normal. Care gaps and lifestyle discussed. Essential hypertension Mostly controlled on current hydrochlorothiazide 12.5 mg daily, and Toprol 25 mg daily. Advised patient to continue current medication for now. Continue ambulatory monitoring. She recently obtained a wrist cuff, advised her to bring in cuff to ensure accuracy against our clinic cuff. Discussed lifestyle modifications for improving hypertension. Peptic ulcer disease EGD in Feb 2023 showed 1 small superficial ulcer, otherwise unremarkable. Symptoms mostly controlled on turmeric supplementation alone. No longer on omeprazole. Advised patient of lifestyle modifications to improve GERD. Can use Pepcid for breakthrough symptoms if needed. Advised patient to let us know if her symptoms are becoming more frequent. Vaccination counseling provided but patient/guardian declined. Return in about 6 months (around 01/15/2024) for Follow Up HTN, GERD. Patient Instructions (the written plan) and additional handouts provided to the patient with their After Visit Summary. In addition to an annual wellness visit, an E&M visit was also completed. documented in this encounter [facility] 07-17-2023 Instructions Jony Cruz DO - 07/17/2023 11:18 AM EST Images from the original note were not included. Thank you for choosing our office for your Medicare Wellness Visit. Below you will find the plans we discussed today for your future medical treatments. Please keep this plan in a visible location so you can refer to it often and let our office know if you have any questions. 5-Year Plan Health Maintenance Topic Date Due Depression Screening (PHQ-2/9) 06/10/2023 Falls Risk Assessment 07/14/2024 Wellness Visit 07/17/2024 Tetanus: Every 10yrs 10/31/2032 Hepatitis C Screening Completed Dexa Scan Completed Colorectal Cancer Screening/Monitoring Discontinued Pneumococcal Vaccine: Age 65+ Discontinued Mammogram Discontinued Zoster Vaccines Discontinued Sequential Influenza Vaccine Discontinued COVID-19 Vaccine Discontinued Pharmacy[facility] (DME) [facility] #[id number] - [address] [id number] Referrals and Orders No orders of the defined types were placed in this encounter. Learning About Living Sorto What is a living will? A living will, also called a declaration, is a legal form. It tells your family and your doctor your wishes when you can't speak for yourself. It's used by the health professionals who will treat you as you near the end of your life or if you get seriously hurt or ill. If you put your wishes in writing, your loved ones and others will know what kind of care you want. They won't need to guess. This can ease your mind and be helpful to others. And you can change or cancel your living will at any time. A living will is not the same as an estate or property will. An estate will explains what you want to happen with your money and property after you . How do you use it? Keep these facts in mind about how a living will is used. Your living will is used only if you can't speak or make decisions for yourself. Most often, one or more doctors must certify that you can't speak or decide for yourself before your living will takes effect. If you get better and can speak for yourself again, you can accept or refuse any treatment. It doesn't matter what you said in your living will. Some states may limit your right to refuse treatment in certain cases. For example, you may need to clearly state in your living will that you don't want artificial hydration and nutrition, such as being fed through a tube. Is a living will a legal document? A living will is a legal document. Each state has its own laws about living sorto. And a living will may be called something else in your state. Here are some things to know about living sorto. You don't need an warehouse administrative assistant to complete a living will. But legal advice can be helpful if your state's laws are unclear. It can also help if your health history is complicated or your family can't agree on what should be in your living will. You can change your living will at any time. Some people find that their wishes about end-of-life care change as their health changes. If you make big changes to your living will, complete a new form. If you move to another state, make sure that your living will is legal in the state where you now live. In most cases, doctors will respect your wishes even if you have a form from a different state. You might use a universal form that has been approved by many states. This kind of form can sometimes be filled out and stored online. Your digital copy will then be available wherever you have a connection to the internet. The doctors and nurses who need to treat you can find it right away. Your state may offer an online registry. This is another place where you can store your living will online. It's a good idea to get your living will notarized. This means using a person called a public speaking coach to watch two people sign, or witness, your living will. What should you know when you create a living will? Here are some questions to ask yourself as you make your living will. Do you know enough about life support methods that might be used? If not, talk to your doctor so you know what might be done if you can't breathe on your own, your heart stops, or you can't swallow. What things would you still want to be able to do after you receive life-support methods? Would you want to be able to walk? To speak? To eat on your own? To live without the help of machines? Do you want certain jainism practices performed if you become very ill? If you have a choice, where do you want to be cared for? In your home? At a hospital or fpc? If you have a choice at the end of your life, where would you prefer to ? At home? In a hospital or fpc? Somewhere else? Would you prefer to be buried or cremated? Do you want your organs to be donated after you ? What should you do with your living will? Make sure that your family members and your health care agent have copies of your living will (also called a declaration). Give your doctor a copy of your living will. Ask to have it kept as part of your medical record. If you have more than one doctor, make sure that each one has a copy. Put a copy of your living will where it can be easily found. For example, some people may put a copy on their refrigerator door. If you are using a digital copy, be sure your doctor, family members, and health care agent know how to find and access it. Where can you learn more? Log into your personal health record on https://[employer].AbilTo and enter K356 in the Education box to learn more about Learning About Living Sorto. Current as of: September 29, 2022 Content Version: 13.9 [employer]. Care instructions adapted under license by your healthcare professional. If you have questions about a medical condition or this instruction, always ask your healthcare professional. [employer] disclaims any warranty or liability for your use of this information. Important Information for Patients of [facility] Please read this information carefully. If you have any questions, talk to your doctor, nurse or healthcare provider. Advance Directives Making Decisions for the Future Many people take action about their healthcare before they become seriously ill. You may state your healthcare preference in writing, while you are still healthy and able to make such decisions. Durable Power of [employer] Operator for Healthcare - This form allows you to appoint someone as your agent to make all healthcare decisions for you, shouId you become terminally ill and unable to communicate, or temporarily or permanently unable to make decisions for yourself. Be sure you talk with that person and your doctor about what you want. This document becomes effective only when you are temporarily or permanently unable to make your own decisions. Living Will - This form allows you to give advanced written directions about all of your healthcare decisions (including wishes about artificial food and water) if you are terminally ill and unable to communicate or in a permanently unconscious state. This document becomes effective only when you are permanently unconscious or terminally ill and unable to communicate. You should also share your wishes with your Durable Power of Buhr Mill Operator, family and doctor. If you do not have a Living Will or Durable Power of [employer] Operator, [place] law allows your next of kin to make all your healthcare decisions if you are terminally ill and unable to communicate, or to make decisions for the withdrawal of life support if you are in a permanently unconscious state only after a 12-month waiting period. The law defines specific rules about the withdrawal of artificially supplied nutrition and hydration (food and water). For more information, please refer to the advanced directive documents. Many people complete both documents because they address different aspects of their medical care. If you are interested in completing a Living Will or Durable Power of Buhr Mill Operator, ask your doctor or nurse. You should give copies of these forms to your family and to your doctor and the healthcare facility to put in your medical record. Be sure to tell your family and close friends about what you want done, and consider giving them a copy of these documents as well. Do Not Resuscitate (DNR) and Comfort Care (CC) Do Not Resuscitate (DNR) means that if a person's heart or breathing stops, no one will try to restart the heart and lungs with CPR (Cardiopulmonary Resuscitation). A DNR order is a written order by a doctor based upon your wishes to avoid having CPR if your heart or breathing stops. There are two types of DNR-CC orders: DNR-CC - Only treatment to provide comfort care will be given to you. If your heart or lungs stop working, CPR wiII not be started. DNR-CC Arrest - You will get all needed treatment until the time your heart or breathing stop working. Once this occurs, CPR will not be started. All care will be done except CPR. It does NOT change the rest of the treatment plan your doctor has ordered. Comfort care such as pain medication, oxygen, nutrition,emotional support, supporting the body and clearing the airway will still be done with both of these orders. Other healthcare providers such as hospice, homehealth, pain specialists and other doctors may be asked to help in your care. If you are interested in a DNR order, share your wishes with your doctor. Eating Healthy Foods: Care Instructions With every meal, you can make healthy food choices. Try to eat a variety of fruits, vegetables, whole grains, lean proteins, and low-fat dairy products. This can help you get the right balance of nutrients, including vitamins and minerals. Small changes add up over time. You can start by adding one healthy food to your meals each day. Try to make half your plate fruits and vegetables, one-fourth whole grains, and one-fourth lean proteins. Try including dairy with your meals. Eat more fruits and vegetables. Try to have them with most meals and snacks. Foods for healthy eating Fruits These can be fresh, frozen, canned, or dried. Try to choose whole fruit rather than fruit juice. Eat a variety of colors. Vegetables These can be fresh, frozen, canned, or dried. Beans, peas, and lentils count too. Whole grains Choose whole-grain breads, cereals, and noodles. Try brown rice. Lean proteins These can include lean meat, poultry, fish, and eggs. You can also have tofu, beans, peas, lentils, nuts, and seeds. Dairy Try milk, yogurt, and cheese. Choose low-fat or fat-free when you can. If you need to, use lactose-free milk or fortified plant-based milk products, such as soy milk. Water Drink water when you're thirsty. Limit sugar-sweetened drinks, including soda, fruit drinks, and sports drinks. Where can you learn more? Log into your personal health record on https://[employer].AbilTo and enter T756 in the Education box to learn more about Eating Healthy Foods: Care Instructions. Current as of: March 26, 2023 Content Version: 13.9 [employer]. Care instructions adapted under license by your healthcare professional. If you have questions about a medical condition or this instruction, always ask your healthcare professional. [employer] disclaims any warranty or liability for your use of this information. documented in this encounter [facility] 05-01-2023 Evaluation + Plan note Associated Problem(s): Mixed hyperlipidemia Plan to continue current atorvastatin for now, need updated lipid panel so we will recheck. [facility] 05-01-2023 Miscellaneous Notes Associated Problem(s): Mixed hyperlipidemia Plan to continue current atorvastatin for now, need updated lipid panel so we will recheck. Associated Problem(s): Cellulitis of right ear No overt infection, suspect likely allergic reaction to the loop earring. Attempted to remove earring manually in clinic, but swelling prevented this. Discussed with our ENT physician Dr. Berger who shares our office, he will see patient immediately after this appointment for removal. Appreciate his assistance. Associated Problem(s): Uncontrolled hypertension Unclear if controlled on current hydrochlorothiazide 12.5 mg daily, and Toprol 25 mg daily. Advised patient to continue current medication for now, but we need better ambulatory blood pressure data. Advised patient to keep a blood pressure log and send us readings in the next couple of weeks to see if any changes need to be made. Discussed lifestyle modifications for improving hypertension. Follow-up in 3 months, sooner if needed based on blood pressure log. Associated Problem(s): Peptic ulcer disease Epigastric pain, p.o. intake improving on omeprazole 20 mg daily. Has seen GI, EGD February 2023 which showed 1 small superficial ulcer, otherwise no significant findings. Patient advised to continue omeprazole for another 2 months. If symptoms continue to improve, or if they resolve completely, can consider coming off of the medication and possibly trialing something like turmeric instead, based on recent data from [facility]. Encouraged lifestyle modifications for improving GERD. documented in this encounter [facility] 05-01-2023 Evaluation + Plan note Associated Problem(s): Cellulitis of right ear No overt infection, suspect likely allergic reaction to the loop earring. Attempted to remove earring manually in clinic, but swelling prevented this. Discussed with our ENT physician Dr. Berger who shares our office, he will see patient immediately after this appointment for removal. Appreciate his assistance. [facility] 05-01-2023 Evaluation + Plan note Associated Problem(s): Uncontrolled hypertension Unclear if controlled on current hydrochlorothiazide 12.5 mg daily, and Toprol 25 mg daily. Advised patient to continue current medication for now, but we need better ambulatory blood pressure data. Advised patient to keep a blood pressure log and send us readings in the next couple of weeks to see if any changes need to be made. Discussed lifestyle modifications for improving hypertension. Follow-up in 3 months, sooner if needed based on blood pressure log. [facility] 05-01-2023 Evaluation + Plan note Associated Problem(s): Peptic ulcer disease Epigastric pain, p.o. intake improving on omeprazole 20 mg daily. Has seen GI, EGD February 2023 which showed 1 small superficial ulcer, otherwise no significant findings. Patient advised to continue omeprazole for another 2 months. If symptoms continue to improve, or if they resolve completely, can consider coming off of the medication and possibly trialing something like turmeric instead, based on recent data from BMJ. Encouraged lifestyle modifications for improving GERD. [facility] 04-29-2023 History of Present illness Narrative [facility] [address] [facility] [place] [address] [facility] [id number] Dept: [phone] MD Maddi Ramirez 78 y.o. female Patient presents with a chief complaint of Forein Body of the Ear (Foreign body of the right ear /New Pt) Temp 97.9 F (36.6 C) (Temporal) Ht 4' 8.5 Wt 36.1 kg (79 lb 9.6 oz) BMI 17.53 kg/m History of Presenting Illness: The patient/caregiver reports a history of complaint with the following features: She presents with a piercing of the right ear that has become red and irritated after replacement of the metal loop. She had a prior piercing at this site that had been removed for a procedure, and had been left out for some time. A temporary replacement was recently placed, but this is now unable to be removed. She has of the piercing and no history of metal allergy or reaction at her other sites. She was seen by her PCP today who was unable to remove the metal loop. Review of systems covering 10 systems is reviewed and pertinent positives and negatives are noted as above. Past Medical History: Diagnosis Date Arthritis Cataract Coronary artery disease Hyperlipidemia Hypertension Laceration of leg 10/31/2022 left Macular degeneration Swelling of both ankles It was because of a heart medication I was on . Current Outpatient Medications: ascorbic acid, vitamin C, (VITAMIN C) 1000 MG tablet, Take 1 (one) tablet (1,000 mg total) by mouth daily ., Disp: , Rfl: aspirin 81 mg chewable tablet, Chew and Swallow daily ., Disp: , Rfl: atorvastatin (Lipitor) 10 MG tablet, Take 1 (one) tablet (10 mg total) by mouth daily ., Disp: 30 tablet, Rfl: 11 calcium carbonate-vitamin D3 600mg (1,500mg) -1,000 unit cap, Take 1 tablet by mouth 2 (two) times a day ., Disp: , Rfl: cyanocobalamin (B-12) 1000 MCG tablet, Take 1 (one) tablet (1,000 mcg total) by mouth daily AM ., Disp: , Rfl: denosumab (Prolia) 60 mg/mL Syrg, Inject 60 (sixty) mg under the skin Every 6 months ., Disp: , Rfl: famotidine (PEPCID) 20 MG tablet, Take 1 (one) tablet (20 mg total) by mouth 2 (two) times a day ., Disp: 60 tablet, Rfl: 11 hydroCHLOROthiazide (MICROZIDE) 12.5 mg capsule, Take 1 (one) capsule (12.5 mg total) by mouth daily ., Disp: 30 capsule, Rfl: 6 leFLUNomide (ARAVA) 10 MG tablet, , Disp: , Rfl: metoprolol succinate (TOPROL-XL) 25 MG 24 hr tablet, Take 1 (one) tablet (25 mg total) by mouth daily AM ., Disp: 30 tablet, Rfl: 11 omeprazole (PRILOSEC) 20 MG capsule, Take 1 (one) capsule (20 mg total) by mouth daily ., Disp: 60 capsule, Rfl: 0 traMADoL (ULTRAM) 50 mg tablet, Take 1 (one) tablet (50 mg total) by mouth 3 (three) times a day as needed TAKE NEEDED FOR PAIN ., Disp: , Rfl: vit A/vit C/vit E/zinc/copper (ICAPS AREDS ORAL), Take by mouth 2 (two) times a day ., Disp: , Rfl: Allergies Allergen Reactions Bactrim [Sulfamethoxazole-Trimethoprim] Sulfa (Sulfonamide Antibiotics) Meloxicam GI intolerance Past Surgical History: Procedure Laterality Date APPENDECTOMY BACK SURGERY BREAST AUGMENTATION BREAST IMPLANT REMOVAL BUNIONECTOMY Right 04/04/2022 Procedure: Exostectomy, 1st metatarsal phalangeal Joint, Right Foot; Surgeon: Imani Hancock DPM; Location: [facility]; Service: Podiatry CATARACT EXTRACTION, BILATERAL COLONOSCOPY 03/09/2015 [facility], diverticulosis sigmoid colon COLONOSCOPY W/ POLYPECTOMY 04/16/2006 Dr Brumfield CORONARY STENT PLACEMENT 2016 anterior decending x1 EGD N/A 02/26/2023 Procedure: ESOPHAGOGASTRODUODENOSCOPY with biopsy; Surgeon: Le Anglin MD; Location: [facility] [place]; Service: Gastroenterology HYSTERECTOMY SHOULDER SURGERY Bilateral Social History Socioeconomic History Marital status: Tobacco Use Smoking status: Former Packs/day: 0.25 Years: 4.00 Additional pack years: 0.00 Total pack years: 1.00 Types: Cigarettes Quit date: 1979 Years since quittin.8 Smokeless tobacco: Never Vaping Use Vaping Use: Never used Substance and Sexual Activity Alcohol use: Yes Comment: GLASS OF WINE 3 DAYS A WEEK Drug use: Never Sexual activity: Not Currently Family History Problem Relation Age of Onset Heart disease Mother Hypertension Mother Diabetes Father Heart attack Father No Known Problems Sister Heart attack Brother Heart disease Brother Diabetes type I Child PHYSICAL EXAM: The patient was examined today 04/29/2023 with findings as follows: CONSTITUTIONAL: General Appearance: well-appearing, nontoxic, alert, no acute distress Communication: normal voicing, hearing intact to spoken voice HEAD/FACE: Head: atraumatic, normocephalic, no lesions Facial Inspection: no lesions, healthy skin Facial Strength: motor strength normal, symmetric strength, symmetric movement EYES: Pupils: PERRLA, extra-ocular movements intact, no nystagmus, sclera white, no redness of eyes, no watering of eyes EARS: Bilateral External Ears: no pits, no tags Right External Ear: gold loop earring of helical rim with surrounding erythema of the skin, normally formed, no lesions, no mastoid tenderness, multiple lobule piercings without irritation or redness Left External Ear: normally formed, no lesions, no mastoid tenderness, multiple lobule piercings without irritation or redness Right External Auditory Canal: normal, healthy skin, no obstructing cerumen, no discharge Left External Auditory Canal: normal, healthy skin, no obstructing cerumen, no discharge Right Tympanic Membrane: normal landmarks, translucent Left Tympanic Membrane: normal landmarks, translucent Hearing: intact to spoken voice NECK: Neck: no masses, trachea midline, normal range of motion, no cysts or pits, no tenderness to palpation LYMPH NODES: Cervical: no palpable lymph node enlargement SKIN: General Appearance: no lesions, warm and dry, normal turgor, no bruising PSYCHIATRIC: Mood and affect: normal mood, normal affect Assessment and Plan: The pin of the irritated ring is transected with a wire turning machine operator and removed. There is no purulent exudate from the site and the existing tract appears well epithelialized. She denies nay metal allergy history although this is considered. I have suggested that she wait a few weeks for the inflammation to settle before any replacement of a ring at this site. If progressive redness or purulence develops, a quinolone antibiotic such as Cipro is suggested, but I see no need for antibiotic at this time. Topical antibiotic may be applied and Tylenol for pain is suggested. 1. Foreign body in auricle of right ear, initial encounter 2. Cellulitis of auricle of right ear Return if symptoms worsen or fail to improve. The patient and/or caregiver is to notify the office if no improvement or worsening of symptoms is noted prior to the scheduled follow-up for sooner evaluation. The patient and/or caregiver is able to state an understanding of these recommendations and is agreeable to the treatment plan. --Andria Berger MD on 04/29/2023 at 11:55 AM An electronic signature was used to authenticate this note. Review of Systems Constitutional: Negative. HENT: Negative. Eyes: Negative. Respiratory: Negative. Cardiovascular: Negative. Gastrointestinal: Negative. Endocrine: Negative. Genitourinary: Negative. Musculoskeletal: Negative. Skin: Negative. Allergic/Immunologic: Negative. Neurological: Negative. Psychiatric/Behavioral: Negative. documented in this encounter [facility] 04-29-2023 Instructions Jony Cruz, - 04/29/2023 10:05 AM EDT Images from the original note were not included. Please keep a close eye on your blood pressure and keep a log, especially if your medicines have been changed significantly. Watch for blood pressure that goes too low (under 100/60), or if it goes too high (above 140/90). If this occurs, call your family doctor as soon as you are able to. If your blood pressure is too high, seek immediate medical attention if you develop symptoms of high blood pressure (chest pain, shortness of breath, headache, vision problems, weakness of one part of the body or stroke-like symptoms). If your pressure is low, seek immediate medical attention if you develop symptoms of low blood pressure (dizziness, passing out, loss of vision, extreme fatigue, weakness). It is important to follow-up with your family doctor in the next two weeks to be sure your blood pressure is controlled. BRING A LOG OF YOUR BLOOD PRESSURES TO THIS VISIT. Here is a log for you to get started. BLOOD PRESSURE MONITORING - If you were prescribed blood pressure medication, please take it as prescribed by your doctor. - Take your blood pressure twice daily (refer to the diagram) and record the values in the log below. - Call and schedule a follow up appointment with your Family Medicine provider to review your measurements and bring your log with you. - Call your doctor before that time if the systolic pressure (top number) is greater than 160 or if the diastolic (bottom number) is greater than 110. High Blood Pressure: Care Instructions Overview It's normal for blood pressure to go up and down throughout the day. But if it stays up, you have high blood pressure. Another name for high blood pressure is hypertension. Despite what a lot of people think, high blood pressure usually doesn't cause headaches or make you feel dizzy or lightheaded. It usually has no symptoms. But it does increase your risk of stroke, heart attack, and other problems. You and your doctor will talk about your risks of these problems based on your blood pressure. Your doctor will give you a goal for your blood pressure. Your goal will be based on your health and your age. Lifestyle changes, such as eating healthy and being active, are always important to help lower blood pressure. You might also take medicine to reach your blood pressure goal. Follow-up care is a fonseca part of your treatment and safety. Be sure to make and go to all appointments, and call your doctor if you are having problems. It's also a good idea to know your test results and keep a list of the medicines you take. How can you care for yourself at home? Medical treatment If you stop taking your medicine, your blood pressure will go back up. You may take one or more types of medicine to lower your blood pressure. Be safe with medicines. Take your medicine exactly as prescribed. Call your doctor if you think you are having a problem with your medicine. Talk to your doctor before you start taking aspirin every day. Aspirin can help certain people lower their risk of a heart attack or stroke. But taking aspirin isn't right for everyone, because it can cause serious bleeding. See your doctor regularly. You may need to see the doctor more often at first or until your blood pressure comes down. If you are taking blood pressure medicine, talk to your doctor before you take decongestants or anti-inflammatory medicine, such as ibuprofen. Some of these medicines can raise blood pressure. Learn how to check your blood pressure at home. Lifestyle changes Stay at a healthy weight. This is especially important if you put on weight around the waist. Losing even 10 pounds can help you lower your blood pressure. If your doctor recommends it, get more exercise. Walking is a good choice. Bit by bit, increase the amount you walk every day. Try for at least 30 minutes on most days of the week. You also may want to swim, bike, or do other activities. Avoid or limit alcohol. Talk to your doctor about whether you can drink any alcohol. Try to limit how much sodium you eat to less than 2,300 milligrams (mg) a day. Your doctor may ask you to try to eat less than 1,500 mg a day. Eat plenty of fruits (such as bananas and oranges), vegetables, legumes, whole grains, and low-fat dairy products. Lower the amount of saturated fat in your diet. Saturated fat is found in animal products such as milk, cheese, and meat. Limiting these foods may help you lose weight and also lower your risk for heart disease. Do not smoke. Smoking increases your risk for heart attack and stroke. If you need help quitting, talk to your doctor about stop-smoking programs and medicines. These can increase your chances of quitting for good. When should you call for help? Call 911 anytime you think you may need emergency care. This may mean having symptoms that suggest that your blood pressure is causing a serious heart or blood vessel problem. Your blood pressure may be over 180/120. For example, call 911 if: You have symptoms of a heart attack. These may include: Chest pain or pressure, or a strange feeling in the chest. Sweating. Shortness of breath. Nausea or vomiting. Pain, pressure, or a strange feeling in the back, neck, jaw, or upper belly or in one or both shoulders or arms. Lightheadedness or sudden weakness. A fast or irregular heartbeat. You have symptoms of a stroke. These may include: Sudden numbness, tingling, weakness, or loss of movement in your face, arm, or leg, especially on only one side of your body. Sudden vision changes. Sudden trouble speaking. Sudden confusion or trouble understanding simple statements. Sudden problems with walking or balance. A sudden, severe headache that is different from past headaches. You have severe back or belly pain. Do not wait until your blood pressure comes down on its own. Get help right away. Call your doctor now or seek immediate care if: Your blood pressure is much higher than normal (such as 180/120 or higher), but you don't have symptoms. You think high blood pressure is causing symptoms, such as: Severe headache. Blurry vision. Watch closely for changes in your health, and be sure to contact your doctor if: Your blood pressure measures higher than your doctor recommends at least 2 times. That means the top number is higher or the bottom number is higher, or both. You think you may be having side effects from your blood pressure medicine. DASH Diet: Care Instructions Your Care Instructions The DASH diet is an eating plan that can help lower your blood pressure. DASH stands for Dietary Approaches to Stop Hypertension. Hypertension is high blood pressure. The DASH diet focuses on eating foods that are high in calcium, potassium, and magnesium. These nutrients can lower blood pressure. The foods that are highest in these nutrients are fruits, vegetables, low-fat dairy products, nuts, seeds, and legumes. But taking calcium, potassium, and magnesium supplements instead of eating foods that are high in those nutrients does not have the same effect. The DASH diet also includes whole grains, fish, and poultry. The DASH diet is one of several lifestyle changes your doctor may recommend to lower your high blood pressure. Your doctor may also want you to decrease the amount of sodium in your diet. Lowering sodium while following the DASH diet can lower blood pressure even further than just the DASH diet alone. Follow-up care is a fonseca part of your treatment and safety. Be sure to make and go to all appointments, and call your doctor if you are having problems. It's also a good idea to know your test results and keep a list of the medicines you take. How can you care for yourself at home? Following the DASH diet Eat 4 to 5 servings of fruit each day. A serving is 1 medium-sized piece of fruit, cup chopped or canned fruit, 1/4 cup dried fruit, or 4 ounces ( cup) of fruit juice. Choose fruit more often than fruit juice. Eat 4 to 5 servings of vegetables each day. A serving is 1 cup of lettuce or raw leafy vegetables, cup of chopped or cooked vegetables, or 4 ounces ( cup) of vegetable juice. Choose vegetables more often than vegetable juice. Get 2 to 3 servings of low-fat and fat-free dairy each day. A serving is 8 ounces of milk, 1 cup of yogurt, or 1 ounces of cheese. Eat 6 to 8 servings of grains each day. A serving is 1 slice of bread, 1 ounce of dry cereal, or cup of cooked rice, pasta, or cooked cereal. Try to choose whole-grain products as much as possible. Limit lean meat, poultry, and fish to 2 servings each day. A serving is 3 ounces, about the size of a deck of cards. Eat 4 to 5 servings of nuts, seeds, and legumes (cooked dried beans, lentils, and split peas) each week. A serving is 1/3 cup of nuts, 2 tablespoons of seeds, or cup of cooked beans or peas. Limit fats and oils to 2 to 3 servings each day. A serving is 1 teaspoon of vegetable oil or 2 tablespoons of salad dressing. Limit sweets and added sugars to 5 servings or less a week. A serving is 1 tablespoon jelly or jam, cup sorbet, or 1 cup of lemonade. Eat less than 2,300 milligrams (mg) of sodium a day. If you limit your sodium to 1,500 mg a day, you can lower your blood pressure even more. Tips for success Start small. Do not try to make dramatic changes to your diet all at once. You might feel that you are missing out on your favorite foods and then be more likely to not follow the plan. Make small changes, and stick with them. Once those changes become habit, add a few more changes. Try some of the following: Make it a goal to eat a fruit or vegetable at every meal and at snacks. This will make it easy to get the recommended amount of fruits and vegetables each day. Try yogurt topped with fruit and nuts for a snack or healthy dessert. Add lettuce, tomato, cucumber, and onion to sandwiches. Combine a ready-made pizza crust with low-fat mozzarella cheese and lots of vegetable toppings. Try using tomatoes, squash, spinach, broccoli, carrots, cauliflower, and onions. Have a variety of cut-up vegetables with a low-fat dip as an appetizer instead of chips and dip. Sprinkle sunflower seeds or chopped almonds over salads. Or try adding chopped walnuts or almonds to cooked vegetables. Try some vegetarian meals using beans and peas. Add garbanzo or kidney beans to salads. Make burritos and tacos with mashed jon beans or black beans. Low Sodium Diet (2,000 Milligram): Care Instructions Your Care Instructions Too much sodium causes your body to hold on to extra water. This can raise your blood pressure and force your heart and kidneys to work harder. In very serious cases, this could cause you to be put in the hospital. It might even be life-threatening. By limiting sodium, you will feel better and lower your risk of serious problems. The most common source of sodium is salt. People get most of the salt in their diet from canned, prepared, and packaged foods. Fast food and restaurant meals also are very high in sodium. Your doctor will probably limit your sodium to less than 2,000 milligrams (mg) a day. This limit counts all the sodium in prepared and packaged foods and any salt you add to your food. Follow-up care is a fonseca part of your treatment and safety. Be sure to make and go to all appointments, and call your doctor if you are having problems. It's also a good idea to know your test results and keep a list of the medicines you take. How can you care for yourself at home? Read food labels Read labels on cans and food packages. The labels tell you how much sodium is in each serving. Make sure that you look at the serving size. If you eat more than the serving size, you have eaten more sodium. Food labels also tell you the Percent Daily Value for sodium. Choose products with low Percent Daily Values for sodium. Be aware that sodium can come in forms other than salt, including monosodium glutamate (MSG), sodium citrate, and sodium bicarbonate (baking soda). MSG is often added to food. When you eat out, you can sometimes ask for food without MSG or added salt. Buy low-sodium foods Buy foods that are labeled unsalted (no salt added), sodium-free (less than 5 mg of sodium per serving), or low-sodium (less than 140 mg of sodium per serving). Foods labeled reduced-sodium and light sodium may still have too much sodium. Be sure to read the label to see how much sodium you are getting. Buy fresh vegetables, or frozen vegetables without added sauces. Buy low-sodium versions of canned vegetables, soups, and other canned goods. Prepare low-sodium meals Cut back on the amount of salt you use in cooking. This will help you adjust to the taste. Do not add salt after cooking. One teaspoon of salt has about 2,300 mg of sodium. Take the salt shaker off the table. Flavor your food with garlic, lemon juice, onion, vinegar, herbs, and spices. Do not use soy sauce, lite soy sauce, steak sauce, onion salt, garlic salt, celery salt, mustard, or ketchup on your food. Use low-sodium salad dressings, sauces, and ketchup. Or make your own salad dressings and sauces without adding salt. Use less salt (or none) when recipes call for it. You can often use half the salt a recipe calls for without losing flavor. Other foods such as rice, pasta, and grains do not need added salt. Rinse canned vegetables, and cook them in fresh water. This removes some--but not all--of the salt. Avoid water that is naturally high in sodium or that has been treated with water softeners, which add sodium. Call your local water company to find out the sodium content of your water supply. If you buy bottled water, read the label and choose a sodium-free brand. Avoid high-sodium foods Avoid eating: Smoked, cured, salted, and canned meat, fish, and poultry. Ham, dang, hot dogs, and luncheon meats. Regular, hard, and processed cheese and regular peanut butter. Crackers with salted tops, and other salted snack foods such as pretzels, chips, and salted popcorn. Frozen prepared meals, unless labeled low-sodium. Canned and dried soups, broths, and bouillon, unless labeled sodium-free or low-sodium. Canned vegetables, unless labeled sodium-free or low-sodium. Vietnamese fries, pizza, tacos, and other fast foods. Pickles, olives, ketchup, and other condiments, especially soy sauce, unless labeled sodium-free or low-sodium. Where can you learn more? Log into your personal health record on [email or web address] and enter V843 in the Education box to learn more about Low Sodium Diet (2,000 Milligram): Care Instructions. Current as of: May 13, 2018 Content Version: 12.1 6674-3029 [employer]. Care instructions adapted under license by your healthcare professional. If you have questions about a medical condition or this instruction, always ask your healthcare professional. [employer] disclaims any warranty or liability for your use of this information. documented in this encounter [facility] 04-29-2023 History of Present illness Narrative Assessment & Plan Problem List Peptic ulcer disease - Primary Epigastric pain, p.o. intake improving on omeprazole 20 mg daily. Has seen GI, EGD February 2023 which showed 1 small superficial ulcer, otherwise no significant findings. Patient advised to continue omeprazole for another 2 months. If symptoms continue to improve, or if they resolve completely, can consider coming off of the medication and possibly trialing something like turmeric instead, based on recent data from BMJ. Encouraged lifestyle modifications for improving GERD. Uncontrolled hypertension Unclear if controlled on current hydrochlorothiazide 12.5 mg daily, and Toprol 25 mg daily. Advised patient to continue current medication for now, but we need better ambulatory blood pressure data. Advised patient to keep a blood pressure log and send us readings in the next couple of weeks to see if any changes need to be made. Discussed lifestyle modifications for improving hypertension. Follow-up in 3 months, sooner if needed based on blood pressure log. Cellulitis of right ear No overt infection, suspect likely allergic reaction to the loop earring. Attempted to remove earring manually in clinic, but swelling prevented this. Discussed with our ENT physician Dr. Berger who shares our office, he will see patient immediately after this appointment for removal. Appreciate his assistance. Mixed hyperlipidemia Plan to continue current atorvastatin for now, need updated lipid panel so we will recheck. Relevant Orders Lipid Panel For any new medications prescribed today, patient was educated about indications for the medication, how to take the medication, and potential side effects of the medication. Return in about 3 months (around 07/30/2023) for Annual Exam. Jony Cruz DO, MS Family Medicine, Osteopathic Manipulative Medicine, and Hospital Medicine [facility] 04/29/2023 Subjective Chief Complaint Patient presents with Follow-up 3 mon fu HPI Maddi Michele is a 78 y.o. [1] female presenting with: Essential hypertension: Patient states that overall she feels very good, has no concerns with regard to hypertension. patient states that her blood pressure home has been very good, in the 120s over 70s when she checks it. She does get elevated blood pressure whenever she comes into the clinic. She is currently taking hydrochlorothiazide 12.5 mg, metoprolol 25 mg daily. She reports compliance with her medications. Recently had a CMP done which was unremarkable. Denies any symptoms of hypertension or hypotension. She does occasionally have a heart rate down into the 50s. She states that she was put on metoprolol in the past due to history of mesenteric ischemia. Issue with right earring Patient recently got a new earring in her cartilage on the superior part of her right ear, although the piercing was done many many years ago. Her daughter got her new earring 2 weeks ago. Since then, patient has progressively developed increasing pain in that area, and she has been unable to take the earring out. Denies any purulent drainage or systemic symptoms otherwise. Peptic ulcer disease Patient has been undergoing extensive evaluation for anorexia, weight loss, and dysphagia in recent months. She states that the reason for her poor appetite in the past was due to abdominal discomfort and pain. She eventually started following with GI, had extensive evaluation with multiple imaging studies. EGD was done in the end of February and was largely unremarkable, showed a small superficial ulcer. Her last visit with Dr. Anglin was on 03/20 and he advised her that this is likely due to GERD, she can continue Prilosec for 2 more months and follow-up with us instead. Patient states that she is continually improving, and has had significant reduction in all her symptoms since she has been taking Prilosec. She also feels she has been able to start putting on weight, and is tolerating foods better. The following portions of the patient's history were reviewed and updated as appropriate: allergies, current medications, past family history, past medical history, past social history, past surgical history and problem list. Patient's Medications New Prescriptions No medications on file Previous Medications ASCORBIC ACID, VITAMIN C, (VITAMIN C) 1000 MG TABLET Take 1 (one) tablet (1,000 mg total) by mouth daily . ASPIRIN 81 MG CHEWABLE TABLET Chew and Swallow daily . ATORVASTATIN (LIPITOR) 10 MG TABLET Take 1 (one) tablet (10 mg total) by mouth daily . CALCIUM CARBONATE-VITAMIN D3 600MG (1,500MG) -1,000 UNIT CAP Take 1 tablet by mouth 2 (two) times a day . CYANOCOBALAMIN (B-12) 1000 MCG TABLET Take 1 (one) tablet (1,000 mcg total) by mouth daily AM . DENOSUMAB (PROLIA) 60 MG/ML SYRG Inject 60 (sixty) mg under the skin Every 6 months . FAMOTIDINE (PEPCID) 20 MG TABLET Take 1 (one) tablet (20 mg total) by mouth 2 (two) times a day . HYDROCHLOROTHIAZIDE (MICROZIDE) 12.5 MG CAPSULE Take 1 (one) capsule (12.5 mg total) by mouth daily . LEFLUNOMIDE (ARAVA) 10 MG TABLET METOPROLOL SUCCINATE (TOPROL-XL) 25 MG 24 HR TABLET Take 1 (one) tablet (25 mg total) by mouth daily AM . OMEPRAZOLE (PRILOSEC) 20 MG CAPSULE Take 1 (one) capsule (20 mg total) by mouth daily . TRAMADOL (ULTRAM) 50 MG TABLET Take 1 (one) tablet (50 mg total) by mouth 3 (three) times a day as needed TAKE NEEDED FOR PAIN . VIT A/VIT C/VIT E/ZINC/COPPER (ICAPS AREDS ORAL) Take by mouth 2 (two) times a day . Modified Medications No medications on file Discontinued Medications No medications on file Review of Systems Objective Vitals: 04/29/23 0915 04/29/23 0923 BP: (!) 167/106 (!) 158/107 BP Location: Left arm Left arm Patient Position: Sitting Sitting BP Cuff Size: Adult Adult Pulse: 94 97 Resp: 16 Temp: 97.7 F (36.5 C) TempSrc: Temporal Weight: 36 kg (79 lb 6.4 oz) Height: 4' 8.5 Physical Exam Vitals and nursing note reviewed. Constitutional: General: She is not in acute distress. Appearance: Normal appearance. She is well-developed. She is not ill-appearing, toxic-appearing or diaphoretic. HENT: Head: Normocephalic and atraumatic. Right Ear: Swelling (mild, surrounding helix earring) and tenderness (helix, at site of piercing) present. No drainage. Left Ear: External ear normal. Nose: Nose normal. Eyes: General: Vision grossly intact. Gaze aligned appropriately. Extraocular Movements: Extraocular movements intact. Conjunctiva/sclera: Conjunctivae normal. Right eye: Right conjunctiva is not injected. No exudate. Left eye: Left conjunctiva is not injected. No exudate. Pupils: Pupils are equal, round, and reactive to light. Cardiovascular: Rate and Rhythm: Normal rate and regular rhythm. Heart sounds: S1 normal and S2 normal. No murmur heard. No friction rub. No gallop. No S3 or S4 sounds. Pulmonary: Effort: Pulmonary effort is normal. No tachypnea, accessory muscle usage or respiratory distress. Breath sounds: Normal breath sounds. No decreased air movement or transmitted upper airway sounds. No decreased breath sounds, wheezing, rhonchi or rales. Musculoskeletal: General: No tenderness. Right lower leg: No edema. Left lower leg: No edema. Skin: General: Skin is warm and dry. Findings: No rash. Neurological: General: No focal deficit present. Mental Status: She is alert and oriented to person, place, and time. Mental status is at baseline. Motor: Motor function is intact. No tremor or abnormal muscle tone. Coordination: Coordination is intact. Gait: Gait is intact. Psychiatric: Attention and Perception: Attention and perception normal. Mood and Affect: Mood and affect normal. Speech: Speech normal. Behavior: Behavior normal. Thought Content: Thought content normal. Cognition and Memory: Cognition and memory normal. Judgment: Judgment normal. Osteopathic Medical Exam PHQ9: CAN-7 (Please note that portions of this note have been completed with a voice recognition software. Efforts were made to correct any errors, but occasionally words are mis-transcribed.) documented in this encounter [facility] 03-20-2023 History of Present illness Narrative Maddisiomara Michele 77 y.o. 1945 female Changes since last visit: 77-year-old female had EGD for anorexia weight loss and difficulty in swallowing. EGD revealed a small superficial ulcer in the stomach biopsy revealed reactive gastropathy with erosion H. pylori was negative. Patient says he is feeling better no abdominal pain or difficulty in swallowing appetite is better. Past Medical History: Past Medical History: Diagnosis Date Arthritis Cataract Coronary artery disease Hyperlipidemia Hypertension Laceration of leg 10/31/2022 left Macular degeneration Swelling of both ankles It was because of a heart medication I was on . Family History Problem Relation Age of Onset Heart disease Mother Hypertension Mother Diabetes Father Heart attack Father No Known Problems Sister Heart attack Brother Heart disease Brother Diabetes type I Child Surgical History & Procedures: Past Surgical History: Procedure Laterality Date APPENDECTOMY BACK SURGERY BREAST AUGMENTATION BREAST IMPLANT REMOVAL BUNIONECTOMY Right 04/04/2022 Procedure: Exostectomy, 1st metatarsal phalangeal Joint, Right Foot; Surgeon: Imani Hancock DPM; Location: [facility]; Service: Podiatry CATARACT EXTRACTION, BILATERAL COLONOSCOPY 03/09/2015 [facility], diverticulosis sigmoid colon COLONOSCOPY W/ POLYPECTOMY 04/16/2006 Dr Brumfield CORONARY STENT PLACEMENT 2016 anterior decending x1 EGD N/A 02/26/2023 Procedure: ESOPHAGOGASTRODUODENOSCOPY with biopsy; Surgeon: Le Anglin MD; [place] [facility] [place] Service: Gastroenterology HYSTERECTOMY SHOULDER SURGERY Bilateral Social History: Social History Socioeconomic History Marital status: Tobacco Use Smoking status: Former Packs/day: 0.25 Years: 4.00 Additional pack years: 0.00 Total pack years: 1.00 Types: Cigarettes Quit date: 1980 Years since quittin.7 Smokeless tobacco: Never Vaping Use Vaping Use: Never used Substance and Sexual Activity Alcohol use: Yes Comment: GLASS OF WINE 3 DAYS A WEEK Drug use: Never Sexual activity: Not Currently Current Medications: Current Outpatient Medications Medication Sig Dispense Refill ascorbic acid, vitamin C, (VITAMIN C) 1000 MG tablet Take 1 (one) tablet (1,000 mg total) by mouth daily . aspirin 81 mg chewable tablet Chew and Swallow daily . atorvastatin (Lipitor) 10 MG tablet Take 1 (one) tablet (10 mg total) by mouth daily . 30 tablet 11 calcium carbonate-vitamin D3 600mg (1,500mg) -1,000 unit cap Take 1 tablet by mouth 2 (two) times a day . cyanocobalamin (B-12) 1000 MCG tablet Take 1 (one) tablet (1,000 mcg total) by mouth daily AM . denosumab (Prolia) 60 mg/mL Syrg Inject 60 (sixty) mg under the skin Every 6 months . hydroCHLOROthiazide (MICROZIDE) 12.5 mg capsule Take 1 (one) capsule (12.5 mg total) by mouth daily . 30 capsule 6 leFLUNomide (ARAVA) 10 MG tablet metoprolol succinate (TOPROL-XL) 25 MG 24 hr tablet Take 1 (one) tablet (25 mg total) by mouth daily AM . 30 tablet 11 traMADoL (ULTRAM) 50 mg tablet Take 1 (one) tablet (50 mg total) by mouth 3 (three) times a day as needed TAKE NEEDED FOR PAIN . vit A/vit C/vit E/zinc/copper (ICAPS AREDS ORAL) Take by mouth 2 (two) times a day . famotidine (PEPCID) 20 MG tablet Take 1 (one) tablet (20 mg total) by mouth 2 (two) times a day . 60 tablet 11 No current facility-administered medications for this visit. Review of Systems Constitutional: Negative for appetite change and unexpected weight change. HENT: Negative for voice change. Respiratory: Negative for cough, choking and shortness of breath. Cardiovascular: Negative for chest pain and leg swelling. Gastrointestinal: Negative for abdominal pain, anal bleeding, blood in stool, constipation, diarrhea, nausea, rectal pain and vomiting. Genitourinary: Negative for hematuria. Musculoskeletal: Negative for arthralgias and joint swelling. Skin: Negative for pallor. Neurological: Negative for dizziness, tremors and weakness. Hematological: Negative for adenopathy. Does not bruise/bleed easily. Psychiatric/Behavioral: Negative for confusion. Physical Exam Constitutional: Appearance: Normal appearance. Eyes: Pupils: Pupils are equal, round, and reactive to light. Cardiovascular: Pulses: Normal pulses. Heart sounds: Normal heart sounds. Pulmonary: Breath sounds: Normal breath sounds. Abdominal: General: Bowel sounds are normal. Palpations: Abdomen is soft. There is no mass. Tenderness: There is no abdominal tenderness. Skin: Coloration: Skin is not jaundiced. Neurological: General: No focal deficit present. Mental Status: She is alert and oriented to person, place, and time. Psychiatric: Behavior: Behavior normal. Admission on 02/26/2023, Discharged on 02/26/2023 Component Date Value Ref Range Status Case Report 02/26/2023 Final Value:Surgical Pathology Report Case: [id number] Authorizing Provider: Le Anglin, Collected: 02/26/2023 08:00 AM Ordering Location: [facility] Received: 02/26/2023 10:46 AM Center Periop Pathologist: Arlene Will MD Specimen: Gastric, ulcer Final Diagnosis 02/26/2023 Final Value:This result contains rich text formatting which cannot be displayed here. Diagnosis Comment 02/26/2023 Final Value:This result contains rich text formatting which cannot be displayed here. Clinical Information 02/26/2023 Final Value:This result contains rich text formatting which cannot be displayed here. Gross Description 02/26/2023 Final Value:This result contains rich text formatting which cannot be displayed here. Microscopic Description 02/26/2023 Final Value:This result contains rich text formatting which cannot be displayed here. Assessment & Plan: 77-year-old female with history of abdominal pain anorexia and difficulty in swallowing had EGD which revealed small superficial ulcer in the stomach biopsies were unremarkable she is taking omeprazole and at present no abdominal pain or difficulty in swallowing. I asked her to continue take Prilosec for 2 months more. Patient is referred back to primary care physician. Le Anglin MD documented in this encounter [facility] 02-20-2023 History of Present illness Narrative Maddi Michele 77 y.o. 1945 female Reason for Consult: Abdominal pain and pancreatic cyst HPI: 77-year-old female with history of hypertension, hyperlipidemia, rheumatoid arthritis, coronary artery disease was referred to me for evaluation of pancreatic cyst. Patient says since last week of October of this year she has pain in upper abdomen mainly in epigastric area initially associated with nausea and sometimes vomiting but now she has difficulty in swallowing and feel food staying in the esophagus and sometimes vomit it out she also says she has lost appetite but no loss of weight. 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 For which repeat MRI in 1 year was recommended. Past Medical History: Past Medical History: Diagnosis Date Arthritis Cataract Coronary artery disease Hyperlipidemia Hypertension Laceration of leg 10/31/2022 left Macular degeneration Swelling of both ankles Family History Problem Relation Age of Onset Heart disease Mother Hypertension Mother Diabetes Father Heart attack Father No Known Problems Sister Heart attack Brother Heart disease Brother Diabetes type I Child Surgical History & Procedures: Past Surgical History: Procedure Laterality Date APPENDECTOMY BACK SURGERY BREAST AUGMENTATION BREAST IMPLANT REMOVAL BUNIONECTOMY Right 04/04/2022 Procedure: Exostectomy, 1st metatarsal phalangeal Joint, Right Foot; Surgeon: Imani Hancock DPM; Location: [facility] OR; Service: Podiatry CATARACT EXTRACTION, BILATERAL COLONOSCOPY 03/09/2015 [facility], diverticulosis sigmoid colon COLONOSCOPY W/ POLYPECTOMY 04/16/2006 Dr Brumfield CORONARY STENT PLACEMENT 2016 anterior decending x1 HYSTERECTOMY SHOULDER SURGERY Bilateral Social History: Social History Socioeconomic History Marital status: Tobacco Use Smoking status: Former Packs/day: 0.25 Years: 4.00 Additional pack years: 0.00 Total pack years: 1.00 Types: Cigarettes Quit date: 1979 Years since quittin.6 Smokeless tobacco: Never Vaping Use Vaping Use: Never used Substance and Sexual Activity Alcohol use: Yes Comment: GLASS OF WINE 3 DAYS A WEEK Drug use: Never Sexual activity: Not Currently Current Medications: Current Outpatient Medications Medication Sig Dispense Refill ascorbic acid, vitamin C, (VITAMIN C) 1000 MG tablet Take 1 (one) tablet (1,000 mg total) by mouth daily . aspirin 81 mg chewable tablet Chew and Swallow daily . atorvastatin (Lipitor) 10 MG tablet Take 1 (one) tablet (10 mg total) by mouth daily . 30 tablet 11 calcium carbonate-vitamin D3 600mg (1,500mg) -1,000 unit cap Take 1 tablet by mouth 2 (two) times a day . cyanocobalamin (B-12) 1000 MCG tablet Take 1 (one) tablet (1,000 mcg total) by mouth daily AM . hydroCHLOROthiazide (MICROZIDE) 12.5 mg capsule Take 1 (one) capsule (12.5 mg total) by mouth daily . 30 capsule 6 leFLUNomide (ARAVA) 10 MG tablet metoprolol succinate (TOPROL-XL) 25 MG 24 hr tablet Take 1 (one) tablet (25 mg total) by mouth daily AM . 30 tablet 11 traMADoL (ULTRAM) 50 mg tablet Take 1 (one) tablet (50 mg total) by mouth 3 (three) times a day as needed TAKE NEEDED FOR PAIN . vit A/vit C/vit E/zinc/copper (ICAPS AREDS ORAL) Take by mouth 2 (two) times a day . denosumab (Prolia) 60 mg/mL Syrg Inject 60 (sixty) mg under the skin Every 6 months . famotidine (PEPCID) 20 MG tablet Take 1 (one) tablet (20 mg total) by mouth 2 (two) times a day . 60 tablet 11 No current facility-administered medications for this visit. Review of Systems Constitutional: Negative for appetite change and unexpected weight change. HENT: Negative for voice change. Respiratory: Negative for cough, choking and shortness of breath. Cardiovascular: Negative for chest pain and leg swelling. Gastrointestinal: Positive for abdominal pain. Negative for anal bleeding, blood in stool, constipation, diarrhea, nausea, rectal pain and vomiting. Loss of appetite and difficulty in swallowing Genitourinary: Negative for hematuria. Musculoskeletal: Negative for arthralgias and joint swelling. Skin: Negative for pallor. Neurological: Negative for dizziness, tremors and weakness. Hematological: Negative for adenopathy. Does not bruise/bleed easily. Psychiatric/Behavioral: Negative for confusion. Physical Exam Constitutional: Appearance: Normal appearance. Eyes: Pupils: Pupils are equal, round, and reactive to light. Cardiovascular: Pulses: Normal pulses. Heart sounds: Normal heart sounds. Pulmonary: Breath sounds: Normal breath sounds. Abdominal: General: Bowel sounds are normal. Palpations: Abdomen is soft. There is no mass. Tenderness: There is no abdominal tenderness. Skin: Coloration: Skin is not jaundiced. Neurological: General: No focal deficit present. Mental Status: She is alert and oriented to person, place, and time. Psychiatric: Behavior: Behavior normal. No visits with results within 30 Day(s) from this visit. Latest known visit with results is: Lab Requisition on 01/01/2023 Component Date Value Ref Range Status Sodium 01/01/2023 142 135 - 145 mmol/L Final Potassium 01/01/2023 4.4 3.5 - 5.1 mmol/L Final Chloride 01/01/2023 107 98 - 108 mmol/L Final Bicarbonate 01/01/2023 32 21 - 32 mmol/L Final Anion Gap 01/01/2023 7 (L) 10 - 20 mmol/L Final Glucose 01/01/2023 101 (H) 65 - 99 mg/dL Final BUN 01/01/2023 21 8 - 25 mg/dL Final Creatinine 01/01/2023 0.69 0.60 - 1.20 mg/dL Final eGFR 01/01/2023 90 >=60 mL/min/1.73 m2 Final Estimated GFR was calculated using the 2020 CKD-EPI creatinine equation. BUN/Creatinine Ratio 01/01/2023 30.4 (H) 10.0 - 20.0 Final Total Protein 01/01/2023 6.8 6.0 - 8.0 g/dL Final Albumin 01/01/2023 3.2 3.2 - 5.2 g/dL Final Calcium 01/01/2023 9.2 8.4 - 10.2 mg/dL Final Alkaline Phosphatase 01/01/2023 66 40 - 150 U/L Final AST 01/01/2023 18 0 - 45 U/L Final Total Bilirubin 01/01/2023 0.5 0.0 - 1.3 mg/dL Final ALT 01/01/2023 21 14 - 65 U/L Final WBC 01/01/2023 6.89 4.50 - 11.00 K/mcL Final RBC 01/01/2023 4.18 4.00 - 5.20 M/mcL Final Hemoglobin 01/01/2023 12.3 12.0 - 16.0 g/dL Final Hematocrit 01/01/2023 39.6 36.0 - 46.0 % Final MCV 01/01/2023 94.7 80.0 - 100.0 fL Final MCH 01/01/2023 29.4 26.0 - 34.0 pg Final MCHC 01/01/2023 31.1 31.0 - 37.0 g/dL Final Platelets 01/01/2023 250 150 - 400 K/mcL Final RDW - CV 01/01/2023 12.9 11.6 - 14.8 % Final MPV 01/01/2023 11.0 9.4 - 12.4 fL Final Neutrophils 01/01/2023 61.3 % Final Lymphocytes 01/01/2023 19.9 % Final Monocytes 01/01/2023 13.1 % Final Eosinophils 01/01/2023 3.8 % Final Basophils 01/01/2023 1.2 % Final IG Percent 01/01/2023 0.70 % Final The IG parameter is the percentage of metamyelocytes, myelocytes and promyelocytes. An immature granulocyte count (IG) of 1% or more suggests the possibility of infection, an IG count of 3% is very likely related to an infection. Neutrophils Abs 01/01/2023 4.23 1.70 - 7.00 K/mcL Final Lymphocytes Abs 01/01/2023 1.37 0.90 - 4.00 K/mcL Final Monocytes Abs 01/01/2023 0.90 0.30 - 0.90 K/mcL Final Eosinophils Abs 01/01/2023 0.26 0.00 - 0.50 K/mcL Final Basophils Abs 01/01/2023 0.08 0.00 - 0.30 K/mcL Final IG Absolute 01/01/2023 0.05 0.00 - 0.30 K/mcL Final Nucleated RBC 01/01/2023 0.0 % Final Nucleated RBC Abs 01/01/2023 0.00 0.00 - 0.00 K/mcL Final Assessment & Plan: #1 epigastric pain with difficulty in swallowing and loss of appetite patient will need EGD to evaluate. EGD scheduled for February 26 at 8 AM at surgery center. 2. 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 She will need repeat MRCP in 1 year. #3 mild dilatation of intrahepatic and common hepatic duct dilatation with normal common bile duct. Cause not clear may need ERCP. No common bile duct stone or mass lesion on MRCP. Will do EGD first and then decide about ERCP. Le Anglin MD documented in this encounter [facility] 02-12-2023 Telephone encounter Note Last OV 01/14/23. Next OV 04/22/23. [facility] 02-12-2023 Miscellaneous Notes Last OV 01/14/23. Next OV 04/22/23. ----- Message from Crista Stephenson sent at 02/12/2023 12:26 PM EDT ----- Regarding: rx refill - out of meds Contact: self MEDICATION REFILL REQUEST: PCP: Merari Kevin MD Patient called 02/12/23 and is requesting a medication refill for hydroCHLOROthiazide (MICROZIDE) 12.5 mg capsule. This was confirmed from the current medication list found in the patients chart. Supply Requested: # of days: 90 days Method of receiving: Send to pharmacy Last set of flowsheet rows for OARRS report: OARRS/NARxCHECK Report Received and Assessed: No data found Date controlled substance agreement signed: No data found Date of last drug screen: No data found Functional Assessment: No data found Will this refill be sent to the preferred pharmacy listed below? Yes Preferred pharmacies: [id number] [id number] Pt Call Back Number Work Phone Not on file. Patient call back message sent to the primary care clinical pool. Crista Stephenson documented in this encounter [facility] 02-12-2023 Telephone encounter Note ----- Message from Crista Stephenson sent at 02/12/2023 12:26 PM EDT ----- Regarding: rx refill - out of meds Contact: self MEDICATION REFILL REQUEST: PCP: Merari Kevin MD Patient called 02/12/23 and is requesting a medication refill for hydroCHLOROthiazide (MICROZIDE) 12.5 mg capsule. This was confirmed from the current medication list found in the patients chart. Supply Requested: # of days: 90 days Method of receiving: Send to pharmacy Last set of flowsheet rows for OARRS report: OARRS/NARxCHECK Report Received and Assessed: No data found Date controlled substance agreement signed: No data found Date of last drug screen: No data found Functional Assessment: No data found Will this refill be sent to the preferred pharmacy listed below? Yes Preferred pharmacies: [facility] #[id number] [id number] Pt Call Back Number Work Phone Not on file. Patient call back message sent to the primary care clinical pool. Crista Stephenson [facility] 01-24-2023 History of Present illness Narrative PATIENT SCHEDULED CT 01/28/23 Spoke with patient in detail about my concerns about mesenteric artery ischemic and the chronicity of this- discussed I feel like this is more in line with patient's symptoms as she has worsening pain after eating meals and pain radiates into her LLQ as well -would like to evaluate w/ CT angio first and then work up pancreatic cyst if required at a later date -pt verbalized understanding- she states she has an appt w/ Dr Clements but has not set up the ct angio yet. Advised pt to call to schedule this prior to appt w/ Dr Clements- she was given central schedulings phone number. 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 documented in this encounter [facility] 01-22-2023 Evaluation + Plan note Associated Problem(s): Left lower quadrant abdominal pain CT abd showed: Heavy ostial calcification also present at the origin of the SMA, celiac artery and left renal arteries. Correlation with any symptoms of postprandial pain may be of benefit to assess for chronic intestinal ischemia. Referral to vascular surgery CT angio ordered [facility] 01-22-2023 Miscellaneous Notes Associated Problem(s): Left lower quadrant abdominal pain CT abd showed: Heavy ostial calcification also present at the origin of the SMA, celiac artery and left renal arteries. Correlation with any symptoms of postprandial pain may be of benefit to assess for chronic intestinal ischemia. Referral to vascular surgery CT angio ordered documented in this encounter [facility] 01-21-2023 History of Present illness Narrative Chief Complaint Patient presents with Follow-up Osteoporosis No falls or fractures PCP: Merari Kevin MD Rheum: Vannesa Angeles HPI: Ms. Michele is 77 y.o. female who has a past medical history of Osteoporosis, seen today via telephone encounter; I last saw her in January 2019. She was originally diagnosed with osteoporosis based on a DEXA in [address], she had previously been on and off oral Boniva for around 7 years then switched to Forteo from 2010 to 2012. When I saw her, she had resumed Boniva, but had a drop in BMD on her 2014 DEXA. In regard to risk factors for osteoporosis: Family history of osteoporosis: no known Parental Hip fracture: none Lifetime fractures: ankle fracture (sort of) after jumping off the counter Menopause: total hysterectomy in 1975, no HRT Lifetime weight: 92-96 lbs History of RA: + (started seeing rheum in 2007-) Prior history of thyroid disease: none Smoker: no; Alcohol: 1 glass of wine per day Prior steroid use: none Prior use of PPIs, SSRIs, AEDs: had been taking prilosec for a week to help with chest symptoms (recently) Has some back and forth diarrhea and constipation (IBS) takes metamucil regularly. Ms. Michele returns for follow-up, last visit in October 2021. Today she reports having a fall, was using a stool to get something on a counter and fell, injuring her leg, sustained a big skin tear on the left rico. She underwent a surgery to repair her leg (plastic surgery). No fractures related to the fall. She remains on Prolia (started in fall 2014 - last dose December 2022), she missed one dose due to COVID19 in January of 2020). She notes remaining active overall, walks around 5 miles per day. She has had left flank pain that initially radiated to the groin. So far her imaging has not been able to diagnose anything, she's had no kidney stones. Workup including gall bladder, MRCP, and CT angio. One thing that did stand out was the description of SMA ostial calcification - she described this pain occurring first with bending forward, which could go along with SMA calcification and ischemia. CT 12/04/2022 5. Heavy ostial calcification also present at the origin of the SMA, celiac artery and left renal arteries. Correlation with any symptoms of postprandial pain may be of benefit to assess for chronic intestinal ischemia. ---- ---- ---- ---- ---- ---- She takes a calcium supplement 2XD, has occasional cheese and cottage cheese. Only vitamin D is in her calcium. Worried that she isn't absorbing food as well. She does describe food often moves through quickly diarrhea. Calcium intake: calcium carbonate 600 + 400 units of vitamin D twice a day Exercise: continues to walk 5 miles in the evening nearly every day (5-6 days a week) Past Medical History: Diagnosis Date Arthritis Atherosclerotic heart disease of [place] coronary artery without angina pectoris 2016 Coronary artery disease History of cholecystectomy 2000 Osteoporosis Osteoporosis Current Outpatient Medications Medication Sig ascorbic acid 500 MG tablet Take 1 tablet by mouth daily. B-12 PO Take 1,000 mcg by mouth daily. Calcium Carbonate (CALCIUM 600 PO) Take 1 tablet by mouth 2 times daily. denosumab (PROLIA) 60 MG/ML SOLN injection 1 mL by Subcutaneous route Once for 1 dose. (Patient taking differently: Inject 1 mL under the skin every 6 months.) DISABILITY PLACARD Disability placard end date 07/06/2026 Leflunomide 10 MG tablet Take 0.5 tablets by mouth daily. lisinopril 10 MG Tab Take 0.5 tablets by mouth daily. metoprolol succinate 25 MG tablet XL at bedtime. traMADol 50 MG tablet Take 1 tablet by mouth 3 times daily as needed. Multiple Vitamins-Minerals (ICAPS AREDS 2) Cap Take by mouth 2 times daily. (Patient not taking: Reported on 01/21/2023) Physical Exam BP 160/90 (BP Location: Left arm, BP Position: Sitting) Ht 1.44 m (4' 8.69 ) Wt 34.8 kg (76 lb 12.8 oz) BMI 16.80 kg/m Smoking Status Never , Body mass index is 16.8 kg/m . Wt Readings from Last 3 Encounters: 01/21/23 34.8 kg (76 lb 12.8 oz) 06/17/22 37 kg (81 lb 9.6 oz) 10/09/21 37 kg (81 lb 9.6 oz) Gen: awake, alert, NAD HEENT: NCAT, EOMI Thyroid: unremarkable CV: rrr, no m/r/g Pulm: CTAB Ext: no LE edema Neuro: no tremors, reflexes are 1+ Procedure / Imaging / Lab Data: Pertinent procedure/imaging/lab data was reviewed/discussed with the patient today: Labs: Component Latest Ref Rng 01/21/2023 Intact PTH 14.0 - 72.0 pg/mL 55.9 VITAMIN D 25 HYDROXY 30.0 - 100.0 ng/mL 96.6 CALCIUM 8.6 - 10.5 mg/dL 9.7 Albumin 3.5 - 5.0 g/dL 4.0 Component Ref Range & Units 01/01/2023 Sodium 135 - 145 mmol/L 142 Potassium 3.5 - 5.1 mmol/L 4.4 Chloride 98 - 108 mmol/L 107 Bicarbonate 21 - 32 mmol/L 32 Anion Gap 10 - 20 mmol/L 7 Low Glucose 65 - 99 mg/dL 101 High BUN 8 - 25 mg/dL 21 Creatinine 0.60 - 1.20 mg/dL 0.69 eGFR >=60 mL/min/1.73 m2 90 Comment: Estimated GFR was calculated using the 2020 CKD-EPI creatinine equation. BUN/Creatinine Ratio 10.0 - 20.0 30.4 High Total Protein 6.0 - 8.0 g/dL 6.8 Albumin 3.2 - 5.2 g/dL 3.2 Calcium 8.4 - 10.2 mg/dL 9.2 Alkaline Phosphatase 40 - 150 U/L 66 AST 0 - 45 U/L 18 Total Bilirubin 0.0 - 1.3 mg/dL 0.5 ALT 14 - 65 U/L 21 VITAMIN D, 25-HYDROXY on 10-11-2020 VITAMIN D, 25-HYDROXY 63 ng/mL Normal [facility] ALBUMIN on 10-11-2020 Albumin [Mass/Vol] 3.8 g/dL Normal 3.4 - 5.0 [facility] CALCIUM on 10-11-2020 Calcium [Mass/Vol] 8.9 mg/dL Normal 8.6 - 10.3 [facility] PARATHYROID HORMONE,INTACT on 10-11-2020 PARATHYROID HORMONE,INTACT 85.4 pg/mL Normal 18.5 - 88.0 [facility] Imaging: DXA 01/29/2021 COMPARISON WITH PREVIOUS EXAMS ON: 01/25/2019 Body Region: Prev BMD Current BMD Change (g/cm2) (g/cm2) (%) Lumbar 1-3 Spine: 0.768, 0.768, +0.0% Left Total Hip: 0.643, 0.623, -3.1% Right Total Hip: 0.696, 0.718, +3.2% IMPRESSION: Based on BMD and WHO criteria diagnosis is consistent with osteoporosis. DUAL ENERGY X-RAY ABSORPTIOMETRY (DEXA) REPORT EXAM: DEXA scanning using a [employer] bone densitometer was performed on 01/25/2019 07:57 AM IMPRESSION: Bone mineral areal density (BMAD) of the spine and hips reduced down to the osteoporotic range with more pronounced bone deficiency at the axial skeleton. Since the 2014 measurement bone mineral density has been increasing in the spine by 15.2 percent, at the left hip by 7.8 percent, and on the right side by 15.4 percent. DEXA study should be repeated in 2 years to further evaluate bone mass trajectory as the fracture risk remains high. Assessment: Ms. Michele is a 77 y.o. here for follow-up for osteoporosis. ICD-10-CM 1. Other osteoporosis, unspecified pathological fracture presence M81.8 BONE DENSITY AXIAL (HIP, PELVIS, SPINE) PTH INTACT VITAMIN D (25-HYDROXY,TOTAL) CALCIUM ALBUMIN N-TELOPEPTIDE, SERUM(NTX) AMB REFERRAL TO INFUSION CLINIC Plan: 1. Osteoporosis - continues to be at high risk for fracture based on DEXA, but she is remaining active and does well taking her calcium - she's had a good response to Prolia (initial increase was great, now stable on latest DEXA) and is tolerating it well - checking labs today, vitamin D is on the high side - will ask her to make sure she's not taking additional - she is likely getting some from sun exposure though - will continue with Prolia therapy, renewed infusion clinic order today - she exercises regularly which is excellent, I encouraged her to keep this up - she will remain on calcium 1200 mg per day - next DEXA due January of 2023 - ordered today Return in about 1 year (around 01/22/2024). documented in this encounter [facility] 01-21-2023 Instructions Mustapha Nj MD - 01/21/2023 10:15 AM EDT You're due for a bone density - the order is in, you can call ([phone] ) to see if you can get this done next week. Keep up with your calcium, we'll check the vitamin D today, along with calcium, PTH, and the bone turnover marker (N-telopeptide). I'll let you know how these work. We'll plan to continue with Prolia as long as the bone density is either the same or better. documented in this encounter [facility] 01-17-2023 History of Present illness Narrative Chief Complaint Patient presents with Left Knee - Joint Injection Left knee injection HPI: Maddi Michele is a 77 y.o. female who presents for a left knee injection. She states injections typically last several months. No new injuries. She endorses global left knee pain that is worse with activity. Reviewed past surgical history, medical history, family history, social history, allergies, and ROS. PE: A&Ox3. NAD. Antalgic gait left Knee Exam mild tenderness to palpation at medial/lateral joint line 5/5 quads strength Range of Motion: 0-120 degrees, flexion contracture absent No laceration, abrasions or ecchymoses Crepitus Imaging: None taken today Assessment: 1. Left Knee Arthritis Plan: Left knee Steroid Injection treatment was discussed and requested by the patient. Please see procedure note. She will follow up as needed. All of the patient's questions were answered, and they were in agreement with the plan of care. They were advised to call the office if they have any further questions or concerns. Clint Aceves PA-C Department of Orthopaedics [facility] Associated Order(s): LARGE JOINT/BURSA INJECTION AND/OR ASPIRATION: L knee Post-Procedure Diagnose(s): Primary osteoarthritis of left knee LARGE JOINT/BURSA INJECTION AND/OR ASPIRATION: L knee Date/Time: 01/17/2023 11:00 AM Performed by: ROMAN Valverde Authorized by: ROMAN Valverde Supporting Documentation Indications: pain and osteoarthritis Procedure Details: Location: knee - L knee Local Anesthetic: ethyl chloride (cold spray) Needle size: 25 G Approach: anterolateral Medication Verification: I have personally verified and performed the final check of the medication(s) used in this procedure prior to administration. The following items were included during the verification process for medication(s) administered: drug name, strength, volume, expiration, physical integrity and appearance of the medication(s). Medications administered: 1 mL triamcinolone 40 MG/ML; 4 mL bupivacaine 0.5 % Patient tolerance: patient tolerated the procedure well with no immediate complications Consent: Consent was obtained prior to the procedure after discussion of the risks, benefits and alternatives, and expected outcomes were discussed with the patient. The possibilities of reaction to medication, bleeding, infection, the need for additional procedures, failure to diagnosis a condition, and creating a complication requiring operation were discussed with the patient. The patient concurred with the proposed plan, giving consent. Preparation: Patient was prepped in the usual sterile fashion. The patient was prepped with alcohol and Betadine. documented in this encounter [facility] 01-14-2023 History of Present illness Narrative Images from the original note were not included. Assessment Assessment/Plan: Problem List Left lower quadrant abdominal pain - Primary CT abd showed: Heavy ostial calcification also present at the origin of the SMA, celiac artery and left renal arteries. Correlation with any symptoms of postprandial pain may be of benefit to assess for chronic intestinal ischemia. Referral to vascular surgery CT angio ordered Relevant Orders Ambulatory referral to Vascular Surgery CT Angiogram Abdomen Pelvis Return in about 3 months (around 04/16/2023). For any new medications prescribed today, patient was educated about indications for the medication, how to take the medication and potential side effects of the medications. Merari Kevin MD [facility] [address] [facility] [address] [facility] [id number] Dept: [phone] Subjective Chief Complaint Patient presents with Follow-up 6 month f/u on chronic conditions. Gap Closure (Health Maintenance) There are no preventive care reminders to display for this patient. JOSE ROBERTO Michele is a 77 y.o. female with a PMHx of osteoporosis, rheumatoid arthritis, cad w/ pci, hypertension presenting to discuss abdominal pain Patient presented to our clinic on 11/22/2022 for left lower quadrant pain that radiates into her groin. She is also been having issues keeping food down, feels nauseated at times. She was on Keflex prior to presenting to our clinic and she stated that this caused significant GI discomfort. She was prescribed ciprofloxacin as well as Zofran. This was done prophylactically with it being the weekend until we received her labs back. Her urinalysis showed a urinary tract infection and she was advised to continue antibiotics. After antibiotic, patient continues to have the pain and a CT abdomen pelvis was completed. -->Heavy ostial calcification also present at the origin of the SMA, celiac artery and left renal arteries. Correlation with any symptoms of postprandial pain may be of benefit to assess for chronic intestinal ischemia. -->Intrahepatic and proximal common biliary duct as well as cystic duct dilatation with abrupt tapering at the mid and distal common bile duct. Further evaluation with right upper quadrant ultrasound and/or MRCP is recommended. Pt has US completed: Intrahepatic biliary ductal dilatation and common bile duct dilatation measuring up to 1.3 cm. Recommend correlation with MRCP to evaluate for possible obstructing lesion. 2. Borderline thickening of the gallbladder measuring up to 0.3 cm is nonspecific and may be correlated for symptomatology. MRCP: Dilatation of the intrahepatic bile ducts and common hepatic duct with normal caliber common bile duct. No distinct biliary stone or mass is identified on this noncontrast study. Recommend ERCP for further evaluation. Subcentimeter pancreatic head cyst likely represents may represent a side branch IPMN. ACR recommends follow-up imaging in 1 year. Pt states this started approx Apr and has worsened. She wears compression stockings but this hurts and is quite unpleasant. She did have an increase in her amlodipine to 10mg. Associated symptoms include: tenderness (calf), swelling around bilateral ankles. Pertinent negatives include: no fever, chills, shortness of breath, tachycardia, cough, wheezing, no lower ext claudication sx. Continues to have abd bloating/ discomfort that is in LUQ and LLQ. She feels full, does have nausea associated with it. No melena/hematochezia We initially discussed trial of pepcid however after reviewing CTA- we will place order for CT angio and referral to vascular to r/o mesenteric ischemia Pt was amenable All pertinent positives and negatives are documented in ROS Patient's medications, allergies, past medical history, surgical history history, family history, social history were reviewed. Spent more than 30 minutes with patient, coordinating patient care, including reviewing charts and counseling patient. Past Medical History: Diagnosis Date Arthritis Cataract Coronary artery disease Hyperlipidemia Hypertension Laceration of leg 10/31/2022 left Macular degeneration Swelling of both ankles Past Surgical History: Procedure Laterality Date APPENDECTOMY BACK SURGERY BREAST AUGMENTATION BREAST IMPLANT REMOVAL BUNIONECTOMY Right 04/04/2022 Procedure: Exostectomy, 1st metatarsal phalangeal Joint, Right Foot; Surgeon: Imani Hancock DPM; Location: Main OR; Service: Podiatry CATARACT EXTRACTION, BILATERAL CORONARY STENT PLACEMENT 2015 anterior decending x1 HYSTERECTOMY SHOULDER SURGERY Bilateral Family History Problem Relation Age of Onset Heart disease Mother Hypertension Mother Diabetes Father Heart attack Father No Known Problems Sister Heart attack Brother Heart disease Brother Diabetes type I Child Social History Tobacco Use Smoking status: Former Packs/day: 0.25 Years: 4.00 Total pack years: 1.00 Types: Cigarettes Quit date: 1979 Years since quittin.5 Smokeless tobacco: Never Vaping Use Vaping Use: Never used Substance Use Topics Alcohol use: Yes Comment: GLASS OF WINE 3 DAYS A WEEK Drug use: Never Allergies Allergen Reactions Bactrim [Sulfamethoxazole-Trimethoprim] Sulfa (Sulfonamide Antibiotics) Meloxicam GI intolerance Patient's Medications New Prescriptions ATORVASTATIN (LIPITOR) 10 MG TABLET Take 1 (one) tablet (10 mg total) by mouth daily . FAMOTIDINE (PEPCID) 20 MG TABLET Take 1 (one) tablet (20 mg total) by mouth 2 (two) times a day . HYDROCHLOROTHIAZIDE (MICROZIDE) 12.5 MG CAPSULE Take 1 (one) capsule (12.5 mg total) by mouth daily . Previous Medications ASCORBIC ACID, VITAMIN C, (VITAMIN C) 1000 MG TABLET Take 1 (one) tablet (1,000 mg total) by mouth daily . ASPIRIN 81 MG CHEWABLE TABLET Chew and Swallow daily . CALCIUM CARBONATE-VITAMIN D3 600MG (1,500MG) -1,000 UNIT CAP Take 1 tablet by mouth 2 (two) times a day . CYANOCOBALAMIN (B-12) 1000 MCG TABLET Take 1 (one) tablet (1,000 mcg total) by mouth daily AM . DENOSUMAB (PROLIA) 60 MG/ML SYRG Inject 60 (sixty) mg under the skin Every 6 months . LEFLUNOMIDE (ARAVA) 10 MG TABLET METOPROLOL SUCCINATE (TOPROL-XL) 25 MG 24 HR TABLET Take 1 (one) tablet (25 mg total) by mouth daily AM . TRAMADOL (ULTRAM) 50 MG TABLET Take 1 (one) tablet (50 mg total) by mouth 3 (three) times a day as needed TAKE NEEDED FOR PAIN . VIT A/VIT C/VIT E/ZINC/COPPER (ICAPS AREDS ORAL) Take by mouth 2 (two) times a day . Modified Medications No medications on file Discontinued Medications ASPIRIN 81 MG CHEWABLE TABLET Chew and Swallow 1 (one) tablet (81 mg total) daily PM . FUROSEMIDE (LASIX) 20 MG TABLET Take 1 (one) tablet (20 mg total) by mouth daily for 3 doses . LISINOPRIL (PRINIVIL,ZESTRIL) 10 MG TABLET Take 1 (one) tablet (10 mg total) by mouth daily . ONDANSETRON (ZOFRAN) 4 MG TABLET Take 1 (one) tablet (4 mg total) by mouth every 8 (eight) hours as needed for nausea . Objective Vitals: 01/14/23 1722 BP: 130/87 BP Location: Left arm Patient Position: Sitting BP Cuff Size: Adult Pulse: (!) 58 Resp: 16 Temp: 98.3 F (36.8 C) TempSrc: Infrared SpO2: 97% Weight: 35.7 kg (78 lb 9.6 oz) Height: 4' 9 Estimated body mass index is 17.01 kg/m as calculated from the following: Height as of this encounter: 4' 9 . Weight as of this encounter: 35.7 kg (78 lb 9.6 oz). Physical Exam Vitals and nursing note reviewed. Constitutional: Appearance: Normal appearance. Comments: Very thin HENT: Head: Normocephalic and atraumatic. Eyes: Extraocular Movements: Extraocular movements intact. Pulmonary: Effort: Pulmonary effort is normal. Breath sounds: Normal breath sounds. No decreased air movement or transmitted upper airway sounds. Abdominal: General: Abdomen is flat. There is no distension. Palpations: Abdomen is soft. Tenderness: There is abdominal tenderness in the periumbilical area, left upper quadrant and left lower quadrant. There is no right CVA tenderness, left CVA tenderness or guarding. Hernia: No hernia is present. Musculoskeletal: General: Deformity: mcp and pip bilaterally. Normal range of motion. Arms: Cervical back: Normal range of motion. Left knee: No erythema. Right lower leg: Swelling and tenderness present. Left lower leg: Swelling and tenderness present. Right ankle: Swelling present. Normal pulse. Left ankle: Swelling present. Normal pulse. Right foot: Swelling present. Left foot: Swelling present. Skin: General: Skin is warm. Comments: Actinic keratosis on forehead and lower ext Neurological: General: No focal deficit present. Mental Status: She is alert and oriented to person, place, and time. Mental status is at baseline. Cranial Nerves: No cranial nerve deficit. Sensory: No sensory deficit. Motor: Motor function is intact. Gait: Gait is intact. Gait normal. Deep Tendon Reflexes: Reflexes normal. Psychiatric: Mood and Affect: Mood normal. Behavior: Behavior normal. Thought Content: Thought content normal. Judgment: Judgment normal. PHQ9: CAN-7 Tobacco Counseling: Counseling given: Not Answered documented in this encounter [facility] 12-20-2022 History of Present illness Narrative As the covering infusion attending on 12/20/2022, I was continuously available for direct communication with the nurse caring for this patient, including physical presence in the hospital and independent review of the patient s medical chart as necessary. Yelena Power MD Supervisor Dock Department of Internal Medicine Division of Rheumatology/Immunology [facility] documented in this encounter [facility] 07-21-2022 Instructions Merari Kevin MD - 07/21/2022 4:17 PM EST Problem List Items Addressed This Visit Other Localized swelling of lower extremity Bilateral lower ext swelling -amlodipine was increase to 10mg at which point it worsened Will discontinue and restart lisinopril 10mg daily Lasix 20mg X 3 days If any referrals were placed at the time of your visit please allow 2 weeks for processing. If you haven't heard from anyone within 2 weeks please contact my office so we can look into the status of your referral. If you were given any labs today please ensure they are completed according to the directions given. Most normal results will be available through [facility] however if abnormal, you will be notified. Please allow 48-72 hours for review, and let you know what steps, if any, are needed next. If you haven't heard from us after that please call to inquire. If labs were ordered to be done PRIOR to your next visit we will discuss the results at the time of your office visit. If any procedures or imaging studies were ordered that must be prior authorized please give us 2 weeks to get them approved. Once approved someone should call you to schedule them or give you a date and time that they were scheduled for. If you haven't heard anything within 2 weeks of the office visit please call the office so we can look into their status. Customer Service/Billing Questions: [phone] MyChart Assistance: [phone] or [phone] Financial Assistance: [phone] or [phone] documented in this encounter [facility] 07-21-2022 Evaluation + Plan note Associated Problem(s): Localized swelling of lower extremity Bilateral lower ext swelling -amlodipine was increase to 10mg at which point it worsened Will discontinue and restart lisinopril 10mg daily Lasix 20mg X 3 days [facility] 07-21-2022 Miscellaneous Notes Associated Problem(s): Localized swelling of lower extremity Bilateral lower ext swelling -amlodipine was increase to 10mg at which point it worsened Will discontinue and restart lisinopril 10mg daily Lasix 20mg X 3 days documented in this encounter [facility] 07-16-2022 History of Present illness Narrative Images from the original note were not included. Assessment Assessment/Plan: Problem List Localized swelling of lower extremity Bilateral lower ext swelling -amlodipine was increase to 10mg at which point it worsened Will discontinue and restart lisinopril 10mg daily Lasix 20mg X 3 days Return in about 4 months (around 11/13/2022). For any new medications prescribed today, patient was educated about indications for the medication, how to take the medication and potential side effects of the medications. Merari Kevin MD [facility] [address] [facility] [address] [facility] [id number] Dept: [phone] Subjective Chief Complaint Patient presents with Follow-up Leg swelling HPI Maddi Michele is a 77 y.o. female with a PMHx of osteoporosis, rheumatoid arthritis, cad w/ pci, hypertension presenting worsening bilateral lower ext edema Pt states this started approx Oct and has worsened. She wears compression stockings but this hurts and is quite unpleasant. She did have an increase in her amlodipine to 10mg. Associated symptoms include: tenderness (calf), swelling around bilateral ankles. Pertinent negatives include: no fever, chills, shortness of breath, tachycardia, cough, wheezing, no lower ext claudication sx. We discussed discontinuing amlodipine and restarting lisinopril. I would also prescribe a few days of lasix She was seen by Dr Clements in May 2022- per his note She may have some mild small vessel changes, but this is unrelated to any large vessel vascular occlusive disease and is not amenable to any vascular treatments or therapies Her frustration of ankle swelling is recommended to be treated with support stockings to decrease venous congestion, but I do not see any venous cause for her symptoms. Pt was amenable All pertinent positives and negatives are documented in ROS Patient's medications, allergies, past medical history, surgical history history, family history, social history were reviewed. Spent more than 15 minutes with patient, coordinating patient care, including reviewing charts and counseling patient. Past Medical History: Diagnosis Date Arthritis Cataract Coronary artery disease Hyperlipidemia Hypertension Macular degeneration Swelling of both ankles Past Surgical History: Procedure Laterality Date APPENDECTOMY BACK SURGERY BREAST AUGMENTATION BREAST IMPLANT REMOVAL BUNIONECTOMY Right 04/04/2022 Procedure: Exostectomy, 1st metatarsal phalangeal Joint, Right Foot; Surgeon: Imani Hancock DPM; Location: [facility] [place]; Service: Podiatry CATARACT EXTRACTION, BILATERAL CORONARY STENT PLACEMENT 2015 anterior decending x1 HYSTERECTOMY SHOULDER SURGERY Bilateral Family History Problem Relation Age of Onset Heart disease Mother Hypertension Mother Diabetes Father Heart attack Father No Known Problems Sister Heart attack Brother Heart disease Brother Diabetes type I Child Social History Tobacco Use Smoking status: Former Packs/day: 0.25 Years: 4.00 Pack years: 1.00 Types: Cigarettes Quit date: 1979 Years since quittin.0 Smokeless tobacco: Never Vaping Use Vaping Use: Never used Substance Use Topics Alcohol use: Yes Comment: GLASS OF WINE 3 DAYS A WEEK Drug use: Never Allergies Allergen Reactions Bactrim [Sulfamethoxazole-Trimethoprim] Sulfa (Sulfonamide Antibiotics) Meloxicam GI intolerance Patient's Medications New Prescriptions FUROSEMIDE (LASIX) 20 MG TABLET Take 1 (one) tablet (20 mg total) by mouth daily for 3 doses . LISINOPRIL (PRINIVIL,ZESTRIL) 10 MG TABLET Take 1 (one) tablet (10 mg total) by mouth daily . Previous Medications ASCORBIC ACID, VITAMIN C, (VITAMIN C) 1000 MG TABLET Take 1 (one) tablet (1,000 mg total) by mouth daily . ASPIRIN 81 MG CHEWABLE TABLET Chew and Swallow 1 (one) tablet (81 mg total) daily PM . CALCIUM CARBONATE-VITAMIN D3 600MG (1,500MG) -1,000 UNIT CAP Take 1 tablet by mouth 2 (two) times a day . CYANOCOBALAMIN (B-12) 1000 MCG TABLET Take 1 (one) tablet (1,000 mcg total) by mouth daily AM . DENOSUMAB (PROLIA) 60 MG/ML SYRG Inject 60 (sixty) mg under the skin Every 6 months . METOPROLOL SUCCINATE (TOPROL-XL) 25 MG 24 HR TABLET Take 1 (one) tablet (25 mg total) by mouth every night at bedtime . TRAMADOL (ULTRAM) 50 MG TABLET Take 1 (one) tablet (50 mg total) by mouth 3 (three) times a day as needed TAKE NEEDED FOR PAIN . VIT A/VIT C/VIT E/ZINC/COPPER (ICAPS AREDS ORAL) Take by mouth 2 (two) times a day . Modified Medications No medications on file Discontinued Medications AMLODIPINE (NORVASC) 10 MG TABLET Take 1 (one) tablet (10 mg total) by mouth daily . Objective Vitals: 07/16/22 1357 BP: 104/71 BP Location: Left arm Patient Position: Sitting BP Cuff Size: Adult Pulse: 69 Resp: 16 Temp: 98 F (36.7 C) TempSrc: Temporal SpO2: 98% Weight: 38.6 kg (85 lb) Height: 4' 9 Estimated body mass index is 18.39 kg/m as calculated from the following: Height as of this encounter: 4' 9 . Weight as of this encounter: 38.6 kg (85 lb). Physical Exam Vitals and nursing note reviewed. Constitutional: Appearance: Normal appearance. Comments: Very thin HENT: Head: Normocephalic and atraumatic. Eyes: Extraocular Movements: Extraocular movements intact. Pulmonary: Effort: Pulmonary effort is normal. Breath sounds: Normal breath sounds. No decreased air movement or transmitted upper airway sounds. Abdominal: General: Abdomen is flat. Palpations: Abdomen is soft. Musculoskeletal: General: Deformity: mcp and pip bilaterally. Normal range of motion. Arms: Cervical back: Normal range of motion. Left knee: No erythema. Right lower leg: Swelling and tenderness present. Left lower leg: Swelling and tenderness present. Right ankle: Swelling present. Normal pulse. Left ankle: Swelling present. Normal pulse. Right foot: Swelling present. Left foot: Swelling present. Skin: General: Skin is warm. Comments: Actinic keratosis on forehead and lower ext Neurological: General: No focal deficit present. Mental Status: She is alert and oriented to person, place, and time. Mental status is at baseline. Cranial Nerves: No cranial nerve deficit. Sensory: No sensory deficit. Motor: Motor function is intact. Gait: Gait is intact. Gait normal. Deep Tendon Reflexes: Reflexes normal. Psychiatric: Mood and Affect: Mood normal. Behavior: Behavior normal. Thought Content: Thought content normal. Judgment: Judgment normal. PHQ9: CAN-7 Tobacco Counseling: Counseling given: Not Answered documented in this encounter [facility] 06-17-2022 History of Present illness Narrative Infusion Suite Attending documented in this encounter [facility] 06-10-2022 Evaluation + Plan note Associated Problem(s): Medicare annual wellness visit, subsequent Medicare wellness visit was performed today I have reviewed the history, physical, medication list and care team with patient. Code status discussed. Minicog test was completed. Steadi Assessment was completed. [facility] 06-10-2022 Evaluation + Plan note Associated Problem(s): At low risk for fall Hand out given [facility] 06-10-2022 Miscellaneous Notes Associated Problem(s): Medicare annual wellness visit, subsequent Medicare wellness visit was performed today I have reviewed the history, physical, medication list and care team with patient. Code status discussed. Minicog test was completed. Steadi Assessment was completed. Associated Problem(s): At low risk for fall Hand out given documented in this encounter [facility] 06-10-2022 Instructions Merari Kevin MD - 06/10/2022 10:35 AM EST STEADI Low Risk Patient Instructions: Your Falls Screening today shows that you are at low risk for falls. To further protect yourself from falls and maintain your independence, we recommend: 1. Read through the brochure, What You Can Do to Prevent Falls (from CDC). 2. Go through the brochure, Check for Safety: A Home Fall Prevention Checklist for Older Adults (from [facility]), and make changes as recommended. 3. Join a community falls prevention program: Stepping On, a 7-week evidence based program that teaches balance exercises and fall prevention strategies Trev Chi for older adults, group exercise that teaches Trev Chi forms that reduce fall risk (weight shifting, postural alignment and control, and coordinated movements of the arms, legs, head, and trunk) Matter of Balance, an evidence based program designed to reduce the fear of falling and increase activity levels of older adults OR an exercise class for strength and balance. 4. Take your Vitamin D with or without Calcium, as determined by your healthcare provider. 5. Get your vision and hearing checked annually. Falls At Home Each year, thousands of older Americans fall at home. Many of them are seriously injured, and some are disabled. In 2011, nearly 23,000 people over age 65 and 2.4 million were treated in emergency departments because of falls. Falls are often due to hazards that are easy to overlook but easy to fix. This checklist will help you find and fix those hazards in your home. The checklist asks about hazards found in each room of your home. For each hazard, the checklist tells you how to fix the problem. At the end of the checklist, you ll find other tips for preventing falls. FLOORS: Look at the floor in each room. Q: When you walk through a room, do you have to walk around furniture? A. Ask someone to move the furniture so your path is clear Q: Do you have throw rugs on the floor? A. Remove the rugs or use double-sided tape or a non-slip backing so the rugs won t slip. Q: Are there papers, books, towels, shoes, magazines, boxes, blankets, or other objects on the floor? A.setter up things that are on the floor. Always keep objects off the floor. Q: Do you have to walk over or around wires or cords (like lamp, telephone, or extension cords)? A. Coil or tape cords and wires next to the wall so you can t trip over them. If needed, have an electrician supervisor substation put in another outlet. STAIRS AND STEPS: Look at the stairs you use both inside and outside your home. Q: Are there papers, shoes, books, or other objects on the stairs? A. setter up things on the stairs. Always keep objects off stairs. Q: Are some steps broken or uneven? A. Fix loose or uneven steps. Q: Are you missing a light over the stairway? A. Have an electrician supervisor substation put in an overhead light at the top and bottom of the stairs. Q: Do you have only one light switch for your stairs (only at the top or at the bottom of the stairs)? A. Have an electrician supervisor substation put in a light switch at the top and bottom of the stairs. You can get light switches that glow. Q: Has the stairway light bulb burned out? A. Have a friend or family member change the light bulb. Q: Is the carpet on the steps loose or torn? A. Make sure the carpet is firmly attached to every step, or remove the carpet and attach non-slip rubber treads to the stairs. Q: Are the handrails loose or broken? Is there a handrail on only one side of the stairs? A. Fix loose handrails or put in new ones. Make sure handrails are on both sides of the stairs and are as long as the stairs. KITCHEN: Look at your kitchen and eating area. Q: Are the things you use often on high shelves? A. Move items in your cabinets. Keep things you use often on the lower shelves (about waist level). Q: Is your step stool unsteady? A. If you must use a step stool, get one with a bar to hold on to. Never use a chair as a step stool. BATHROOMS: Look at all your bathrooms. Q: Is the tub or shower floor slippery? A. Put a non-slip rubber mat or self-stick strips on the floor of the tub or shower. Q: Do you need some support when you get in and out of the tub or up from the toilet? A. Have grab bars put in next to and inside the tub and next to the toilet. BEDROOMS: Look at all your bedrooms. Q: Is the light near the bed hard to reach? A. Place a lamp close to the bed where it s easy to reach. Q: Is the path from your bed to the bathroom dark? A. Put in a night-light so you can see where you re walking. Some night-lights go on by themselves after dark. Other Things You Can Do to Prevent Falls Do exercises that improve your balance and make your legs stronger. Exercise also helps you feel better and more confident. Have your doctor or pharmacist look at all the medicines you take, even [id number]-uti-[id number] medicines. Some medicines can make you sleepy or dizzy. Have your eyes checked by an eye doctor at least once a year and update your glasses. Get up slowly after you sit or lie down. Wear shoes both inside and outside the house. Avoid going barefoot or wearing slippers. Improve the lighting in your home. Put in brighter light bulbs. Florescent bulbs are bright and cost less to use. It s safest to have uniform lighting in a room. Add lighting to dark areas. Hang lightweight curtains or shades to reduce glare. [place] a contrasting color on the top edge of all steps so you can see the stairs better. For example, use a light color paint on dark wood. To access this brochure online, please visit the CDC website at http://www.cdc.gov/steadi/pdf/check_fo r_safety_brochure-a.pdf Chair Rise Exercise What it does: Strengthens the muscles in your thighs & buttocks. Goal: To do this exercise without using your hands as you become stronger. How to do it: 1. Sit toward the front of a sturdy chair with your knees bent & feet flat on the floor shoulder-width apart 2. Rest your hands lightly on the seat on either side of you, keeping your back & neck straight & and chest slightly forward. 3. Breathe in slowly. Lean forward & feel your weight on the front of your feet. 4. Breathe out and slowly stand up, using your hands as little as possible. 5. Pause for a full breath in & out. 6. Breathe in as you slowly sit down. Do not let yourself collapse back down into the chair. Rather, control your lowering as much as possible. 7. Breathe out. Repeat 10-15 times. If this number is too hard for you when you first start practicing this exercise, begin with fewer and work up to this number. Rest for a minute & then do a final set of 10-15. For detailed instructions, please visit the CDC website at http://www.cdc.gov/steadi/pdf/chair_ri se_exercise-a.pdf Stepping On is an evidence based program proven to reduce falls in older adults. It is a workshop offered once a week for seven weeks. In a small-group setting, you will learn balance exercises and develop specific knowledge and skills to prevent falls. Older adults who should attend are those who: are at risk of falling who have fallen one or more times lives at home are able to walk without the help of another person Local guest experts provide information on exercise, safety, vision, and medications. Classes are offered at [facility]. To find out specifics about a class, please call [phone]. Trev chi: Moving for Better Balance involves low impact exercise. The 12-week class is offered for three hours per week and is led by a trained art history instructor. It is intended for people aged 60 and older. Participants learn and perform a program of eight forms that progress from easy to more difficult. The program can accommodate persons with various physical conditions. Health Benefits of Trev Chi: Moving for Better Balance: Improved social and mental well-being, Improved balance and physical functioning, Improved confidence in conducting daily activities, Reduced risk of falling and sustaining associated injuries, and Maintained independence and improved quality of life. To find a Trev Chi program in your area or additional resources about fall prevention please contact: [facility] Violence and Injury Prevention Program at [phone] or [email or web address] A Matter of Balance: Managing Concerns about Falls is an evidence based program designed to reduce the fear of falling and increase activity levels of older adults. A trained curriculum facilitator leads 8 two-hour sessions for small groups of older adults. The class is intended for people 60 and older who are at risk of falling have a fear of falling or restrict activities who have fallen in the past are interested in improving flexibility, balance, and strength. Participants will learn to view falls as controllable, set goals to increase activity levels, and reduce fall risks at home. Classes are offered in all [address] [place] [address] in [place]. For more information about specific classes near you, please visit http://aging.[place].gov/steadyu/resource s/matterofbalance.aspx. documented in this encounter [facility] 06-10-2022 History of Present illness Narrative Assessment/ Plan: During the course of the visit the patient was educated and counseled about appropriate screening and preventive services, as noted in the written plan. Patient Instructions (the written plan) was given to the patient - see AVS. Problem List At low risk for fall - Primary Hand out given Medicare annual wellness visit, subsequent Medicare wellness visit was performed today I have reviewed the history, physical, medication list and care team with patient. Code status discussed. Minicog test was completed. Steadi Assessment was completed. Relevant Orders Lipid Panel B12/Folate Return in about 6 months (around 12/09/2022) for Follow up Chronic Conditions. Merari Kevin MD [facility] [address] [facility] [address] [facility] [id number] Dept: [phone] __ Subjective: Maddi Michele is a 77 y.o. female who presents for a Medicare exam. Unfortunately prior to her check-in, patient was walking up the stairs and fell. Patient was examined and did have superficial lacerations on bilateral knees and shins. Patient did have bleeding associated with superficial lacerations. This was controlled. Alcohol is used to clean the area and pressure was applied to stop the bleeding. Bacitracin was applied to the superficial lacerations and this was covered with nonstick pads and [place] No complications Instructions were given to patient for her appropriate aftercare and she verbalized understanding Patient denies any previous falls. She states that when she was coming up the stairs, her forgot her Medicare wellness packet and while she was turning to answer him, she fell. She denies any head injuries or injuries on her hands/elbows or hips. Comprehensive Medical and Social History: Past Medical History: Diagnosis Date Arthritis Cataract Coronary artery disease Hyperlipidemia Hypertension Macular degeneration Swelling of both ankles Past Surgical History: Procedure Laterality Date APPENDECTOMY BACK SURGERY BREAST AUGMENTATION BREAST IMPLANT REMOVAL BUNIONECTOMY Right 04/04/2022 Procedure: Exostectomy, 1st metatarsal phalangeal Joint, Right Foot; Surgeon: Imani Hancock DPM; Location: [facility]; Service: Podiatry CATARACT EXTRACTION, BILATERAL CORONARY STENT PLACEMENT 2016 anterior decending x1 HYSTERECTOMY SHOULDER SURGERY Bilateral Family History Problem Relation Age of Onset Heart disease Mother Hypertension Mother Diabetes Father Heart attack Father No Known Problems Sister Heart attack Brother Heart disease Brother Diabetes type I Child Social History Tobacco Use Smoking status: Former Packs/day: 0.25 Years: 4.00 Pack years: 1.00 Types: Cigarettes Quit date: 1979 Years since quittin.9 Smokeless tobacco: Never Vaping Use Vaping Use: Never used Substance Use Topics Alcohol use: Yes Comment: GLASS OF WINE 3 DAYS A WEEK Drug use: Never Allergies Allergen Reactions Bactrim [Sulfamethoxazole-Trimethoprim] Sulfa (Sulfonamide Antibiotics) Meloxicam GI intolerance Patient's Medications New Prescriptions No medications on file Previous Medications AMLODIPINE (NORVASC) 10 MG TABLET Take 1 (one) tablet (10 mg total) by mouth daily . ASCORBIC ACID, VITAMIN C, (VITAMIN C) 1000 MG TABLET Take 1 (one) tablet (1,000 mg total) by mouth daily . ASPIRIN 81 MG CHEWABLE TABLET Chew and Swallow 1 (one) tablet (81 mg total) daily PM . CALCIUM CARBONATE-VITAMIN D3 600MG (1,500MG) -1,000 UNIT CAP Take 1 tablet by mouth 2 (two) times a day . CYANOCOBALAMIN (B-12) 1000 MCG TABLET Take 1 (one) tablet (1,000 mcg total) by mouth daily AM . DENOSUMAB (PROLIA) 60 MG/ML SYRG Inject 60 (sixty) mg under the skin Every 6 months . METOPROLOL SUCCINATE (TOPROL-XL) 25 MG 24 HR TABLET Take 1 (one) tablet (25 mg total) by mouth every night at bedtime . TRAMADOL (ULTRAM) 50 MG TABLET Take 1 (one) tablet (50 mg total) by mouth 3 (three) times a day as needed TAKE NEEDED FOR PAIN . VIT A/VIT C/VIT E/ZINC/COPPER (ICAPS AREDS ORAL) Take by mouth 2 (two) times a day . Modified Medications No medications on file Discontinued Medications No medications on file LABS: Labs reviewed over the last year Do you have an Advanced Directive (Living Will and/or Durable Power of [place] Operator for Health Care)? If not, would you like more information about Advanced Directives?: Yes What is your exercise level?: Moderate (like brisk walking) What is your diet?: Regular Can you prepare your own meals?: Yes Do you have trouble with finding transportation?: No Because of any health problems, do you need the help of another person with your personal care needs? (For example, eating, bathing, dressing, or getting around the house.): No Does your home have throw rugs, poor lighting or slippery bathtub or shower?: No During the past four weeks, how would you rate your health in general?: Very Good Whether or not you use a hearing aid, do you think you have a hearing problem or do others think you have a hearing problem?: No Whether or not you use glasses or contacts, do you have difficulty driving, watching television, reading, or doing any of your daily activities because of your eyesight?: (!) Yes In the past six months, have you had an unexplained weight loss of 10 pounds or more?: No Do you take your medications as prescribed?: I do not miss doses of my medications Activities of Daily Living In your present state of health, are you able to complete the following activities?: Preparing food and eating?: Yes Bathing yourself: Yes Getting dressed: Yes Using the toilet: Yes Moving around from place to place: Yes Nutritional Assessment Dietary issues discussed: yes Financial Assessment Can you afford your medical care? Yes Functional Ability/Safety Screening Current Falls Risk Score: 1 Previous Falls Risk Score: 1 Substance use Do you use any alcohol? No If yes: Type Quantity per setting Quanity per week Evaluation of Cognitive Function Mood / affect: normal/normal Appearance: clean Mini Cog Score: Word Recall: 3 Clock Draw: 2 No obvious memory issues noted with Medicare Wellness Visit. of Advance Directive yes Advanced Directives on file: N If you were unable to speak for yourself, who would you want to make your medical decisions for you? Do you have a DPOA for this person? Daughter- Mary Kay Pantoja daughter If your heart was to stop, would you want CPR/ shocked to try to brought back to life? Yes If you are being kept alive with tubes and machines, would that be ok for you? yes Review of Systems gen- no fever or chills, no fatigue, no unintentional weight loss CV- no chest pain, no LE edema respiratory- no dyspnea, no cough abdominal- no melena, no hematochezia, no constipation musc- no joint or back pain skin- no rash psych- no depression or anxiety sx Objective: Wt Readings from Last 3 Encounters: 06/10/22 36.3 kg (80 lb) 05/09/22 37.1 kg (81 lb 11.2 oz) 05/07/22 36.3 kg (80 lb) Blood pressure (!) 143/88, pulse 63, temperature 97.8 F (36.6 C), temperature source Temporal, resp. rate 16, height 4' 9 , weight 36.3 kg (80 lb), SpO2 94 %. Body mass index is 17.31 kg/m . Suggested Health Maintenance Due: Health Maintenance Due Topic Date Due Sequential Influenza Vaccine (1) Never done Hep C screen: yes- negative HIV screen: yes-negative Low dose lung CT screen (50-80 y/o, 20 pack yr smoker and current or quit <15 years ago)? not applicable If smoking, ready to quit? not applicable DEXA scan: last one was in 2019- pt does not have one scheduled at this time but continues w/ prolia Has appt w/ endocrinology soon and she will ask to have this completed Taking vitamin D? yes Last pap smear: -total hysterectomy Any breast concerns? none Last mammogram: 2019- negative Immunizations: Flu: declined Tdap: completed Pneumonia shot: declined Shingrex: declined Covid 19 vaccine: declined Depression Screening 11/08/2020 06/10/2022 Little interest or pleasure in doing things 0 0 Feeling down, depressed, or hopeless 0 0 PHQ-2 Total Score 0 0 Trouble falling or staying asleep, or sleeping too much 0 1 Feeling tired or having little energy 0 0 Poor appetite or overeating 0 0 Feeling bad about yourself - or that you are a failure or have let yourself or your family down 0 0 Trouble concentrating on things, such as reading the newspaper or watching television 0 0 Moving or speaking so slowly that other people could have noticed. Or the opposite - being so fidgety or restless that you have been moving around a lot more than usual 0 0 Thoughts that you would be better off , or of hurting yourself in some way 0 0 PHQ-9 Total Score 0 1 If you checked off any problems, how difficult have these problems made it for you to do your work, take care of things at home, or get along with other people? Not difficult at all Not difficult at all documented in this encounter [facility] 05-27-2022 History of Present illness Narrative Associated Order(s): LARGE JOINT/BURSA INJECTION AND/OR ASPIRATION: L knee Post-Procedure Diagnose(s): Primary osteoarthritis of left knee LARGE JOINT/BURSA INJECTION AND/OR ASPIRATION: L knee Date/Time: 05/27/2022 9:45 AM Supporting Documentation Indications: pain Procedure Details: Location: knee - L knee Local Anesthetic: ethyl chloride (cold spray) Needle size: 21 G Approach: anterolateral Medication Verification: I have personally verified and performed the final check of the medication(s) used in this procedure prior to administration. The following items were included during the verification process for medication(s) administered: drug name, strength, volume, expiration, physical integrity and appearance of the medication(s). Medications administered: 4 mL lidocaine 10 mg/mL; 1 mL triamcinolone 40 MG/ML Patient tolerance: patient tolerated the procedure well with no immediate complications Comments Patient had immediate relief of pain. Preparation: Patient was prepped in the usual sterile fashion. The patient was prepped with alcohol and Betadine. Chief Complaint Patient presents with Left Knee - Joint Injection Left knee CS injection. Last injection date 01/15/22 HPI: Maddi Michele is a 77 y.o. female who presents for a left knee injection. She was last seen on 01/15/22 and received cortisone injection. She notes this provided her with about 4 months of relief which was a shorter amount of relief than she had received previously. Patient would still like to refrain from surgical intervention at this time. She takes tramadol for generalized arthritis. She is very active. She takes ibuprofen PRN. Reviewed past surgical history, medical history, family history, social history, allergies, and ROS. PE: A&Ox3. NAD. Body mass index is 16.56 kg/m . Gait normal left Knee Exam mild tenderness to palpation at medial joint line 5/5 quads strength Range of Motion: 0-120 degrees, flexion contracture absent No laceration, abrasions or ecchymoses Crepitus Imaging: None taken today Assessment: 1. Left Knee Arthritis Plan: Left knee Steroid Injection treatment was discussed and requested by the patient. Please see procedure note. Patient tolerated procedure well and noted relief of pain in left knee. Patient will follow up prn. Jenny Nettles PA-C Department of Orthopaedics [facility] documented in this encounter [facility] 05-21-2022 History of Present illness Narrative Called in #90/3 script for amlodipine 10 mg tablet to [facility] in [place]. documented in this encounter [facility] 05-13-2022 History of Present illness Narrative Images from the original note were not included. Established Patient Visit Imani Hancock DPM Patient Name: Maddi Michele. . Date of : 1945, 77 y.o.. Gender: female. Subjective: Patient is a pleasant 76-year-old female who presents to clinic almost 6 weeks status post exostectomy of the right foot bony prominence at the first metatarsophalangeal joint arthrodesis site (date of surgery 04/04/2022). Patient is doing very well. Denies any pain. Patient has been wearing her good supportive shoes and is extremely pleased with her surgery results. No other pedal complaints at this time. Denies fevers, chills, nausea, vomiting, chest pain, shortness of breath, or any other constitutional symptoms. Physical Examination: BP 135/82 (BP Location: Right arm, Patient Position: Sitting, BP Cuff Size: Youth) Pulse 67 Temp 98.2 F (36.8 C) (Infrared) General Appearance: Alert, cooperative, no distress, appears stated age. Podiatric Exam Vascular: DP and PT pulses are palpable. Capillary refill time is less than 3 seconds to distal digits. Skin temperature is warm to warm from proximal tibial tuberosity to distal digit. Neurological: Gross sensation is intact. Protective sensation is intact. Dermatologic: Surgical incision site is well epithelialized. No periincisional erythema, edema, drainage or any acute signs of infection. Interdigital spaces are clean dry and intact. Musculoskeletal: No tenderness on palpation to the incision site, right foot. Patient is able to wiggle digits ankle joint range of motion is intact. Muscle strength is 5/5 to dorsiflexors, plantar flexors, inverters and everters. Compartments soft and compressible. No calf pain Diagnoses: 1. Exostosis of bone of foot 2. Postoperative state Imaging: Right foot 3 views weightbearing radiographs were previously ordered and interpreted as follows: Exostectomy of the osseous prominence at the medial first metatarsophalangeal joint arthrodesis site Assessment/Plan: Patient was seen and evaluated. Discussed all clinical findings I ordered, interpreted, and discussed final right foot radiographic findings with patient as noted above. She is doing well postoperatively. Patient has transitioned to good supportive tennis shoes and has no pain or discomfort. No restriction at this time. All questions were answered to patient satisfaction. Patient understands to call with any questions or concerns. Follow-up as needed. This note was partially created using voice recognition software and is inherently subject to errors including those of syntax and sound-alike substitutions which may escape proofreading. In such instances, original meaning may be extrapolated by contextual derivation. Imani Hancock DPM, MS Podiatric Physician & Surgeon documented in this encounter [facility] 05-07-2022 Instructions Mamie Lerner RN - 05/07/2022 3:08 PM EDT How to Contact your Care Team: Provider: Dr. Jamie Duran MD Motor Builder Assembler: Telma Erickson RN documented in this encounter [facility] 05-07-2022 History of Present illness Narrative Cardiology Clinic Visit Heart & Vascular [facility] 05/07/2022 Maya Duran MD [address] [place] [address] [id number] Patient: Maddi Michele Date of : 1945 (77 y.o.) Referring Provider: No ref. provider found PCP: Merari Kevin MD Assessment & Plan Maddi Michele is a 77 y.o. woman with history of coronary artery disease status post PCI to the LAD in 2016, hypertension, hyperlipidemia, and irritable bowel syndrome who presents to clinic for follow up. Coronary artery disease status post PCI to the LAD-she denies symptoms of angina -Continue aspirin 81 mg daily -Continue Lipitor 40 mg daily -Continue metoprolol succinate 25 mg daily Lower extremity swelling-unclear etiology, reports that she was started on amlodipine by her dip filler. It is possible that some of her symptoms may be related to Raynaud's we discussed that her amlodipine may also be contributing to her ankle swelling. I ordered an echocardiogram to evaluate her systolic function. Given symptoms consistent with possible Raynaud's we discussed increasing her amlodipine to 10 mg daily. We will stop her lisinopril given the increase in amlodipine. We discussed that if she does have increased lower extremity swelling with increase in amlodipine to please call her clinic. Possible peripheral vascular disease-the patient underwent ABIs in January which revealed normal resting ABIs bilaterally. On exam she does have diminished pulses in the left foot. Refer to vascular for further evaluation management if needed Hyperlipidemia-most recent LDL at goal -Continue atorvastatin 40 mg daily Hypertension-controlled -Management of amlodipine as above Return in about 6 months (around 11/04/2022). Maya Duran MD [facility] Non-Invasive Cardiology [facility] Heart and Vascular Chief Complaint: Follow-up (6 mo/c/o ankle swelling) Chris Michele is a 77 y.o. woman with history of coronary artery disease status post PCI to the LAD in 2015, hypertension, hyperlipidemia, and irritable bowel syndrome who presents to clinic for follow up. She reports that over the last 6 months she has had ankle swelling that has been off and on. Does not seem to be particularly dependent in nature. In addition she reports that her feet and hands can turn purple and feel cold. She reports that they are not painful. She does not have any ulcers or wounds. She denies having chest pain. She denies feeling short of breath. She denies PND and orthopnea. She denies palpitations. She denies lightheadedness dizziness. She denies any episodes of syncope. Review of Systems: Constitution: Negative. HENT: Negative. Cardiovascular: As above. Respiratory: As above. Endocrine: Negative. Skin: Negative. Musculoskeletal: Negative. Gastrointestinal: Negative. Genitourinary: Negative. Neurological: Negative. Psychiatric/Behavioral: Negative. Past Medical History: Diagnosis Date Arthritis Cataract Coronary artery disease Hyperlipidemia Hypertension Macular degeneration Past Surgical History: Procedure Laterality Date APPENDECTOMY BACK SURGERY BREAST AUGMENTATION BREAST IMPLANT REMOVAL BUNIONECTOMY Right 04/04/2022 Procedure: Exostectomy, 1st metatarsal phalangeal Joint, Right Foot; Surgeon: Imani Hancock DPM; Location: Main OR; Service: Podiatry CATARACT EXTRACTION, BILATERAL CORONARY STENT PLACEMENT 2016 anterior decending x1 HYSTERECTOMY SHOULDER SURGERY Bilateral Family History Problem Relation Age of Onset Heart disease Mother Hypertension Mother Diabetes Father Heart attack Father No Known Problems Sister Heart attack Brother Heart disease Brother Diabetes type I Child Social History Tobacco Use Smoking Status Former Types: Cigarettes Quit date: 1979 Years since quittin.8 Smokeless Tobacco Never Allergies: Bactrim [sulfamethoxazole-trimethoprim], Sulfa (sulfonamide antibiotics), and Meloxicam HOME Medications: Current Outpatient Medications on File Prior to Visit Medication Sig amLODIPine (NORVASC) 5 MG tablet Take 1 (one) tablet (5 mg total) by mouth daily AM . ascorbic acid, vitamin C, (VITAMIN C) 1000 MG tablet Take 1,000 mg by mouth daily . aspirin 81 mg chewable tablet Chew and Swallow 1 (one) tablet (81 mg total) daily PM . calcium carbonate-vitamin D3 600mg (1,500mg) -1,000 unit cap Take 1 tablet by mouth 2 (two) times a day . cyanocobalamin (B-12) 1000 MCG tablet Take 1 (one) tablet (1,000 mcg total) by mouth daily AM . denosumab (Prolia) 60 mg/mL Syrg Inject 60 mg under the skin Every 6 months . lisinopriL (PRINIVIL,ZESTRIL) 10 MG tablet Take 1 (one) tablet (10 mg total) by mouth daily . (Patient taking differently: Take 1 (one) tablet (10 mg total) by mouth daily AM .) metoprolol succinate (TOPROL-XL) 25 MG 24 hr tablet Take 1 (one) tablet (25 mg total) by mouth every night at bedtime . (Patient taking differently: Take 1 (one) tablet (25 mg total) by mouth daily AM .) traMADoL (ULTRAM) 50 mg tablet Take 1 (one) tablet (50 mg total) by mouth 3 (three) times a day as needed TAKE NEEDED FOR PAIN . vit A/vit C/vit E/zinc/copper (ICAPS AREDS ORAL) Take by mouth 2 (two) times a day . No current facility-administered medications on file prior to visit. Physical Examination: BP 115/75 (BP Location: Right arm) Pulse (!) 53 Ht 4' 9 Wt 36.3 kg (80 lb) SpO2 99% BMI 17.31 kg/m Constitutional: Appears well-developed and well-nourished. No distress. HENT: Head: Normocephalic and atraumatic. Eyes: Conjunctivae and EOM are normal. No scleral icterus. Neck: Normal range of motion. Cardiovascular: Normal rate and regular rhythm. Exam reveals no gallop and no friction rub. No murmur heard. No JVP elevation. No LE edema. Pulmonary/Chest: Effort normal and breath sounds normal. No respiratory distress. No wheezes. No rales. Abdominal: Soft. Bowel sounds are normal. There is no abdominal tenderness. Musculoskeletal: Normal range of motion. Neurological: AOx3, moving all ext. Skin: Skin is warm and dry. No rash noted. Psychiatric: Normal mood and affect. Cardiovascular Studies: Left heart catheterization from 05/01/2016 Successful PCI of the mid LAD with 3.5 x 22 mm resolute drug-eluting stent ECG from 08/30/2019-normal sinus rhythm Labs: Outside lab work from September 05, 2020 Sodium 139, potassium 4.2, chloride 104, bicarb 29, BUN 20, creatinine 0.66, calcium 9.3, total cholesterol 157, HDL 76, LDL 68, triglycerides 63 Lab Results Component Value Date GLUCOSE 98 03/25/2022 CALCIUM 9.4 03/25/2022 NA 141 03/25/2022 K 4.4 03/25/2022 CL 106 03/25/2022 BUN 19 03/25/2022 CREATININE 0.66 03/25/2022 Lab Results Component Value Date WBC 5.59 03/25/2022 HGB 13.1 03/25/2022 HCT 41.0 03/25/2022 MCV 97.4 03/25/2022 PLT 271 03/25/2022 RBC 4.21 03/25/2022 documented in this encounter [facility] 04-09-2022 History of Present illness Narrative Images from the original note were not included. Established Patient Visit Imani Hancock DPM Patient Name: Maddi Michele. . Date of : 1945, 76 y.o.. Gender: female. Subjective: Patient is a pleasant 76-year-old female who presents to clinic 1 week status post exostectomy of the right foot bony prominence at the first metatarsophalangeal joint arthrodesis site (date of surgery 04/04/2022). Patient is doing very well. Admits only minimal pain. Has been ambulating using her surgical shoe. No other pedal complaints at this time. Denies fevers, chills, nausea, vomiting, chest pain, shortness of breath, or any other constitutional symptoms. Physical Examination: BP 123/74 (BP Location: Right arm, Patient Position: Sitting, BP Cuff Size: Adult) Pulse (!) 56 Temp 98.4 F (36.9 C) (Infrared) General Appearance: Alert, cooperative, no distress, appears stated age. Podiatric Exam Vascular: DP and PT pulses are palpable. Capillary refill time is less than 3 seconds to distal digits. Skin temperature is warm to warm from proximal tibial tuberosity to distal digit. Neurological: Gross sensation is intact. Protective sensation is intact. Dermatologic: Surgical incision site is well coapted with sutures intact. No periincisional erythema, edema, drainage or any acute signs of infection. Interdigital spaces are clean dry and intact. Musculoskeletal: No tenderness on palpation to the incision site, right foot ankle joint range of motion is intact. Muscle strength is 5/5 to dorsiflexors, plantar flexors, inverters and everters. Compartments soft and compressible. No calf pain Diagnoses: 1. Exostosis of bone of foot 2. Postoperative state Imaging: Right foot 3 views weightbearing radiographs were ordered and interpreted as follows: Exostectomy of the osseous prominence at the medial first metatarsophalangeal joint arthrodesis site Assessment/Plan: Patient was seen and evaluated. Discussed all clinical findings I ordered, interpreted, and discussed right foot radiographic findings with patient as noted above. She is doing well postoperatively. New dressing is applied to the incision site consisting of Betadine paint, Xeroform, 4 x 4, Kerlix and German bandage. Patient is to continue weightbearing as tolerated in surgical shoe. Patient is to follow-up in 2 weeks for suture removal. All questions were answered to patient satisfaction. Patient understands to call with any questions or concerns. This note was partially created using voice recognition software and is inherently subject to errors including those of syntax and sound-alike substitutions which may escape proofreading. In such instances, original meaning may be extrapolated by contextual derivation. Imani Hancock DPM, MS Podiatric Physician & Surgeon documented in this encounter [facility] 04-01-2022 History of Present illness Narrative Images from the original note were not included. Imani Hancock DPM Patient Name: Maddi Michele. . Date of : 1945, 76 y.o.. Gender: female. Subjective: Patient is a pleasant 76-year-old female who presents to clinic for her preoperative H&P evaluation to her schedule surgery on 04/04/2022. Patient states that her right great toe prominence continues to be the primary cause of her right foot pain. Patient states that she ambulates without pain with exception when she puts on shoes which rubs against the prominence. She also bumps her foot at times which causes a pain at the prominence as well. Patient states that she is ready to proceed with surgery and she has completed her preoperative labs and tests as instructed. Denies fevers, chills, nausea, vomiting, chest pain, shortness of breath, or any other constitutional symptoms. Past Medical History: Diagnosis Date Arthritis Cataract Coronary artery disease Hyperlipidemia Hypertension Macular degeneration Past Surgical History: Procedure Laterality Date APPENDECTOMY BACK SURGERY BREAST AUGMENTATION BREAST IMPLANT REMOVAL CATARACT EXTRACTION, BILATERAL CORONARY STENT PLACEMENT 2016 anterior decending x1 HYSTERECTOMY SHOULDER SURGERY Bilateral Social History Socioeconomic History Marital status: Tobacco Use Smoking status: Former Types: Cigarettes Quit date: 1979 Years since quittin.7 Smokeless tobacco: Never Vaping Use Vaping Use: Never used Substance and Sexual Activity Alcohol use: Yes Comment: GLASS OF WINE 3 DAYS A WEEK Drug use: Never Physical Examination: BP 122/81 (BP Location: Left arm, Patient Position: Sitting, BP Cuff Size: Adult) Pulse (!) 51 Temp 97.8 F (36.6 C) (Temporal) General Appearance: Alert, cooperative, no distress, appears stated age. Podiatric Exam Vascular: DP and PT pulses are faintly palpable 1/4. Capillary refill time is brisk to distal digits. Skin temperature is warm to cool from proximal tibial tuberosity to distal digit. Varicosities noted bilaterally. Neurological: Gross sensation is intact. Protective sensation is intact. Dermatologic: No open wounds or ulcerations. Enlarged medial right great toe prominence, right foot. Musculoskeletal: Pain on palpation to the medial prominence of the first MPJ, right foot. Absent first MPJ range of motion, right foot. Range of motion ankle joint range of motion is intact. Muscle strength is 5/5 to dorsiflexors, plantar flexors, inverters and everters. Compartments soft and compressible. No calf pain. Assessment: 1. Primary osteoarthritis of right foot 2. PAD (peripheral artery disease) ([facility]) 3. Right foot pain Imaging: Right foot 3 views weightbearing radiographs were reviewed as follows: Joint space loss noted at the first metatarsophalangeal joint with extensive osteophytic formation and arthrodesis across the joint. A large medial eminence can be appreciated secondary to osteophytic formation Remaining joints are narrowed. No fracture dislocations noted. Osteopenia noted. Plan: Patient was seen and evaluated. Discussed all clinical findings. Patient has end-stage arthritis of the first metatarsophalangeal joint with extensive osteophytic formation across the first MPJ. At this time, patient has exhausted all conservative options consisting of steroidal injection and anti-inflammatories. Patient has tried to find wide supportive shoes without success due to her very narrow and small feet. Patient is ready to proceed with surgery to remove the medial prominence from her right great toe joint. Discussed with patient that the right great toe joint has already fused on its own and therefore no need to perform a first metatarsophalangeal joint arthrodesis. Patient agreed to proceed with surgery accordingly to excise the medial osteophytic prominence . Reviewed patient's segmental arterial Doppler studies test results obtained 6 months ago showing adequate perfusion for healing. Discussed with patient benefits and risk of surgery consisting of numbness, tingling, pain, wound dehiscence, infection, etc. Despite these risks, patient would like to proceed with surgery accordingly. Discussed postoperative course consisting of protected weightbearing on the heel only. Reviewed patient's preoperative testing labs as follows: -CBC with differential: Within normal limits -BMP: Within normal limits with exception of slight elevated glucose -PT/INR: Within normal limits -Covid test: Not required -Chest x-ray: No acute cardiopulmonary process -EKG: With short SD interval; otherwise normal ECG Reviewed patient's preoperative H&P evaluation performed by preanesthesia testing and has been medically cleared to proceed with surgery. In the meantime, patient is to continue to wear wide supportive shoes. Patient is to bring her short cam boot with her today with surgery. All questions were answered to patient satisfaction. Patient understands to call with any questions or concerns. Tentative plans to proceed with surgery on 04/04/2022. Imani Hancock DPM, MS Podiatric Physician & Surgeon documented in this encounter [facility] 02-25-2022 History of Present illness Narrative Images from the original note were not included. Imani Hancock DPM Patient Name: Maddi Michele. . Date of : 1945, 76 y.o.. Gender: female. Subjective: Patient is a pleasant 76-year-old female who is a clinic for follow-up of right great toe joint pain. Patient states that her right great toe prominence is the primary cause of her right foot pain. Patient states that she ambulates without pain with exception when she puts on shoes which rubs against the prominence. She also bumps her foot at times which causes a pain at the prominence as well. Patient is requesting proceeding with surgery. Denies fevers, chills, nausea, vomiting, chest pain, shortness of breath, or any other constitutional symptoms. Physical Examination: BP 132/84 (BP Location: Right arm, Patient Position: Sitting, BP Cuff Size: Child) Pulse 66 Temp 98.4 F (36.9 C) (Infrared) General Appearance: Alert, cooperative, no distress, appears stated age. Podiatric Exam Vascular: DP and PT pulses are faintly palpable 1/4. Capillary refill time is brisk to distal digits. Skin temperature is warm to cool from proximal tibial tuberosity to distal digit. Varicosities noted bilaterally. Neurological: Gross sensation is intact. Protective sensation is intact. Dermatologic: No open wounds or ulcerations. Enlarged medial right great toe prominence, right foot. Musculoskeletal: Pain on palpation to the medial prominence of the first MPJ, right foot. Absent first MPJ, right foot. Range of motion ankle joint range of motion is intact. Muscle strength is 5/5 to dorsiflexors, plantar flexors, inverters and everters. Compartments soft and compressible. No calf pain. Assessment: 1. Primary osteoarthritis of right foot 2. PAD (peripheral artery disease) ([facility]) 3. Right foot pain Imaging: Right foot 3 views weightbearing radiographs were reviewed as follows: Joint space loss noted at the first metatarsophalangeal joint with extensive osteophytic formation and arthrodesis across the joint. A large medial eminence can be appreciated secondary to osteophytic formation Remaining joints are narrowed. No fracture dislocations noted. Osteopenia noted. Plan: Patient was seen and evaluated. Discussed all clinical findings. Patient has end-stage arthritis of the first metatarsophalangeal joint with extensive osteophytic formation across the first MPJ. Patient did not benefit from steroid injection or meloxicam. At this time, patient has exhausted all conservative options consisting of steroidal injection and anti-inflammatories. Patient has tried to find wide supportive shoes without success due to her very narrow and small feet. At this time, patient's primary pain is at the medial prominence and therefore I discussed with patient proceeding with surgery to remove the medial prominence from her right great toe joint. Discussed with patient that the right great toe joint has already fused on its own and therefore no need to perform a first metatarsophalangeal joint arthrodesis. Patient agreed to proceed with surgery accordingly to excise the medial osteophytic prominence . Discussed with patient benefits versus risks of surgery including residual pain, numbness, tingling, infection, etc. Despite these risks, patient would like to proceed with surgical intervention. Patient understand that she will need to be pre-operative surgical testing and labs prior to proceeding with surgery. A case request was placed, along with preoperative orders for CBC with differential, BMP, and PT/INR. All questions were answered to patient satisfaction. Patient understands to call with any questions or concerns. Patient will follow up in 1 week after completion of labs for preoperative H&P evaluation. Imani Hancock DPM, MS Podiatric Physician & Surgeon documented in this encounter [facility] 01-15-2022 History of Present illness Narrative Chief Complaint Patient presents with Left Knee - Joint Injection HPI: Maddi Michele is a 76 y.o. female who presents for a left knee injection. She had a steroid injection at last visit which provided her relief. She states that has worn off. She denies any new injuries or falls. Denies fever, chills, or night sweats. Patient would like to refrain from surgical intervention at this time. Reviewed past surgical history, medical history, family history, social history, allergies, and ROS. PE: A&Ox3. NAD. Body mass index is 16.56 kg/m . Bilateral upper extremities are grossly intact in motor and sensory function on observation and do not appear to preclude the use of assistive device. Gait normal left Knee Exam mild tenderness to palpation at medial joint line 5/5 quads strength Range of Motion: 0-125 degrees, flexion contracture absent extensor lag absent ligaments Normal active ankle and toe motion, Normal sensation to light touch in the superficial peroneal, deep peroneal, sural, saphenous, and tibial nerve distributions. Foot is not well perfused Imaging: None taken today Assessment: 1. Left Knee Arthritis Plan: I did discuss the treatment options with the patient. Arthritis Diagnosis & Treatment options were discussed. Treatment options include: Relative rest, tylenol, NSAIDs, Topicals, Bracing, Injections including steroid or visco supplementation, weight control, activity modifications, and surgical options of arthroplasty. Left knee Steroid Injection treatment was discussed and requested by the patient after risks, benefits, and alternatives discussed. Please see procedure note. Patient will follow up prn. Roni Farrell PA-C Department of Orthopaedics [facility] Associated Order(s): LARGE JOINT/BURSA INJECTION AND/OR ASPIRATION: L knee Post-Procedure Diagnose(s): Primary osteoarthritis of left knee LARGE JOINT/BURSA INJECTION AND/OR ASPIRATION: L knee Date/Time: 01/15/2022 2:00 PM Procedure Details: Location: knee - L knee Local Anesthetic: ethyl chloride (cold spray) Needle size: 21 G Approach: anterolateral Medication Verification: I have personally verified and performed the final check of the medication(s) used in this procedure prior to administration. The following items were included during the verification process for medication(s) administered: drug name, strength, volume, expiration, physical integrity and appearance of the medication(s). Medications administered: 4 mL lidocaine 10 mg/mL; 1 mL triamcinolone 40 MG/ML Patient tolerance: patient tolerated the procedure well with no immediate complications Consent: Consent was obtained prior to the procedure after discussion of the risks, benefits and alternatives, and expected outcomes were discussed with the patient. The possibilities of reaction to medication, bleeding, infection, the need for additional procedures, failure to diagnosis a condition, and creating a complication requiring operation were discussed with the patient. The patient concurred with the proposed plan, giving consent. Preparation: Patient was prepped in the usual sterile fashion. The patient was prepped with alcohol and Betadine. documented in this encounter [facility] 12-12-2021 Instructions Merari Kevin MD - 12/12/2021 11:57 AM EDT Problem List Items Addressed This Visit Other Chest pain Likely musculoskeletal after examination- but r/o pe Localized swelling of left lower extremity - Primary US dvt of LLE ordered Relevant Orders Ultrasound duplex venous leg left D-Dimer, Quantitative If any referrals were placed at the time of your visit please allow 2 weeks for processing. If you haven't heard from anyone within 2 weeks please contact my office so we can look into the status of your referral. If you were given any labs today please ensure they are completed according to the directions given. Most normal results will be available through [facility] however if abnormal, you will be notified. Please allow 48-72 hours for review, and let you know what steps, if any, are needed next. If you haven't heard from us after that please call to inquire. If labs were ordered to be done PRIOR to your next visit we will discuss the results at the time of your office visit. If any procedures or imaging studies were ordered that must be prior authorized please give us 2 weeks to get them approved. Once approved someone should call you to schedule them or give you a date and time that they were scheduled for. If you haven't heard anything within 2 weeks of the office visit please call the office so we can look into their status. Customer Service/Billing Questions: [phone] MyChart Assistance: [phone] or [phone] Financial Assistance: [phone] or [phone] documented in this encounter [facility] 12-12-2021 Evaluation + Plan note Associated Problem(s): Chest pain Likely musculoskeletal after examination- but r/o pe [facility] 12-12-2021 Evaluation + Plan note Associated Problem(s): Localized swelling of left lower extremity US dvt of LLE ordered [facility] 12-12-2021 Miscellaneous Notes Associated Problem(s): Chest pain Likely musculoskeletal after examination- but r/o pe Associated Problem(s): Localized swelling of left lower extremity US dvt of LLE ordered documented in this encounter [facility] 12-12-2021 History of Present illness Narrative Images from the original note were not included. Subjective Patient ID: Maddi Michele is a 76 y.o. female. Chief Complaint Patient presents with Leg Swelling Both legs (not as bad today), pain running down both sides, around rib cage possibly from her statin? HPI Maddi Michele is a 76 y.o. female MHx of osteoporosis, rheumatoid arthritis, cad w/ pci, hypertension presenting LLE edema This is a new complaint. The current episode started in the past 2 week(s). The problem has is unchanged. Associated symptoms include: tenderness (calf), swelling, lower chest pain .Pertinent negatives include: no fever, chills, shortness of breath, tachycardia, cough, wheezing, no lower ext claudication sx. She believed it could be due to her left knee arthritis however she has not had swelling like this before. No recent travel or changes in medications. Pt is quite active. She endorses muscle pain as well around her lower chest and upper arms and she is wondering if statin could be the cause. I advised the pt that I would like to get US of lower ext- and rule out PE. I would hold off on changing any medications at this time but will follow up after testing is complete All pertinent positives and negatives are documented in ROS Patient's medications, allergies, past medical history, surgical history history, family history, social history were reviewed. Spent more than 15 minutes with patient, coordinating patient care, including reviewing charts and counseling patient. Past Medical History: Diagnosis Date Arthritis Coronary artery disease Hyperlipidemia Hypertension IBS (irritable bowel syndrome) Past Surgical History: Procedure Laterality Date APPENDECTOMY BACK SURGERY BREAST AUGMENTATION BREAST IMPLANT REMOVAL CORONARY STENT PLACEMENT 2016 anterior decending x1 HYSTERECTOMY Family History Problem Relation Age of Onset Hypertension Mother Diabetes Father Heart attack Father Diabetes type I Child Social History Tobacco Use Smoking status: Former Pack years: 0.00 Types: Cigarettes Quit date: 1979 Years since quittin.4 Smokeless tobacco: Never Vaping Use Vaping Use: Never used Substance Use Topics Alcohol use: Yes Comment: occasional Drug use: Never Allergies Allergen Reactions Bactrim [Sulfamethoxazole-Trimethoprim] Sulfa (Sulfonamide Antibiotics) Meloxicam GI intolerance Patient's Medications New Prescriptions No medications on file Previous Medications AMLODIPINE (NORVASC) 5 MG TABLET Take 5 mg by mouth daily . ASCORBIC ACID, VITAMIN C, (VITAMIN C) 1000 MG TABLET Take 1,000 mg by mouth daily . ASPIRIN 81 MG CHEWABLE TABLET Chew and Swallow 81 mg daily . ATORVASTATIN (LIPITOR) 40 MG TABLET Take 1 (one) tablet (40 mg total) by mouth daily . CALCIUM CARBONATE-VITAMIN D3 600MG (1,500MG) -1,000 UNIT CAP Take 1 tablet by mouth 2 (two) times a day . CYANOCOBALAMIN (B-12) 1000 MCG TABLET Take 1,000 mcg by mouth daily . DENOSUMAB (PROLIA) 60 MG/ML SYRG Inject 60 mg under the skin Every 6 months . FOLIC ACID (FOLVITE) 1 MG TABLET Take 1 mg by mouth daily . LEUCOVORIN (WELLCOVORIN) 15 MG TABLET Take 15 mg by mouth every 7 days After methotrexate . LISINOPRIL (PRINIVIL,ZESTRIL) 10 MG TABLET Take 1 (one) tablet (10 mg total) by mouth daily . METHOTREXATE (TREXALL) 2.5 MG TABLET Take 10 mg by mouth once a week . METOPROLOL SUCCINATE (TOPROL-XL) 25 MG 24 HR TABLET Take 1 (one) tablet (25 mg total) by mouth every night at bedtime . VIT A/VIT C/VIT E/ZINC/COPPER (ICAPS AREDS ORAL) Take by mouth 2 (two) times a day . Modified Medications No medications on file Discontinued Medications No medications on file Review of Systems Constitutional: Negative for appetite change, chills, fatigue and fever. Eyes: Negative for visual disturbance. Respiratory: Negative for cough, shortness of breath and wheezing. Lower rib cage pain Cardiovascular: Positive for leg swelling. Negative for palpitations. Gastrointestinal: Negative for abdominal pain and blood in stool. Musculoskeletal: Positive for arthralgias (chronic) and joint swelling (hands bilateral, and left knee ). Negative for back pain and neck pain. Nodules at base of first digit bilaterally and on left side wrist -look like RA nodules Skin: Negative for color change, rash and wound. Neurological: Positive for numbness. Negative for headaches. Objective Vitals: 12/12/21 1122 12/12/21 1127 BP: (!) 140/91 (!) 152/82 BP Location: Right arm Right arm Patient Position: Sitting Sitting BP Cuff Size: Child Child Pulse: 70 61 Resp: 16 Temp: 98.5 F (36.9 C) TempSrc: Temporal SpO2: 94% 98% Weight: 36.3 kg (80 lb) Height: 4' 9 Estimated body mass index is 17.31 kg/m as calculated from the following: Height as of this encounter: 4' 9 . Weight as of this encounter: 36.3 kg (80 lb). Physical Exam Vitals and nursing note reviewed. Constitutional: Appearance: Normal appearance. Comments: Very thin HENT: Head: Normocephalic and atraumatic. Eyes: Extraocular Movements: Extraocular movements intact. Pulmonary: Effort: Pulmonary effort is normal. Breath sounds: Normal breath sounds. No decreased air movement or transmitted upper airway sounds. Chest: Chest wall: Tenderness present. No swelling or crepitus. Comments: Tenderness to palpation Abdominal: General: Abdomen is flat. Palpations: Abdomen is soft. Musculoskeletal: General: Deformity: mcp and pip bilaterally. Normal range of motion. Arms: Cervical back: Normal range of motion. Right knee: No swelling, deformity, erythema, bony tenderness or crepitus. Normal range of motion. No LCL laxity, MCL laxity, ACL laxity or PCL laxity. Left knee: Swelling and crepitus present. No erythema or bony tenderness. Normal range of motion. No LCL laxity, MCL laxity, ACL laxity or PCL laxity. Right lower leg: Tenderness present. No swelling. Left lower leg: Swelling and tenderness present. Right ankle: Normal pulse. Left ankle: Normal pulse. Legs: Comments: Soft mobile nodules [place] neck deformities Skin: General: Skin is warm. Comments: Actinic keratosis on forehead and lower ext Neurological: General: No focal deficit present. Mental Status: She is alert and oriented to person, place, and time. Mental status is at baseline. Cranial Nerves: Cranial nerves are intact. No cranial nerve deficit. Sensory: No sensory deficit. Motor: Motor function is intact. Gait: Gait is intact. Gait normal. Deep Tendon Reflexes: Reflexes normal. Psychiatric: Mood and Affect: Mood normal. Behavior: Behavior normal. Thought Content: Thought content normal. Judgment: Judgment normal. PHQ9: CAN-7 Tobacco Counseling: Counseling given: Not Answered Assessment/Plan: Problem List None No follow-ups on file. For any new medications prescribed today, patient was educated about indications for the medication, how to take the medication and potential side effects of the medications. Merari Kevin MD [facility] [address] [facility] [id number] Dept: [phone] documented in this encounter [facility] 12-04-2021 Telephone encounter Note RECEIVED FAX FROM PHARMACY. REQUESTING REFILL ON QUEUED MEDICATION(S). LAST OV:08/01/2021 NEXT OV:06/10/2022 [facility] 12-04-2021 Telephone encounter Note ----- Message from Kacey Zhong sent at 12/04/2021 9:02 AM EDT ----- Regarding: Rx Refill Contact: Self MEDICATION REFILL REQUEST: Patient calling in stating this was taken care of by previous PCP and she was taking 5 MG of lisinopril. PCP: Merari Kevin MD Patient called 12/04/21 and is requesting a medication refill for lisinopriL (PRINIVIL,ZESTRIL) 5 MG tablet atorvastatin (LIPITOR) 40 MG tablet This was confirmed from the current medication list found in the patients chart. Supply Requested: # of days: 90 days Method of receiving: Send to pharmacy Last set of flowsheet rows for OARRS report: OARRS/NARxCHECK Report Received and Assessed: No data found Date controlled substance agreement signed: No data found Date of last drug screen: No data found Functional Assessment: No data found Will this refill be sent to the preferred pharmacy listed below? Yes Preferred pharmacies: [facility] [address] [address] Pt Call Back Number Patient call back message sent to the primary care clinical pool. Kacey Zhong [facility] 12-04-2021 Miscellaneous Notes RECEIVED FAX FROM PHARMACY. REQUESTING REFILL ON QUEUED MEDICATION(S). LAST OV:08/01/2021 NEXT OV:06/10/2022 ----- Message from Kacey Zhong sent at 12/04/2021 9:02 AM EDT ----- Regarding: Rx Refill Contact: Self MEDICATION REFILL REQUEST: Patient calling in stating this was taken care of by previous PCP and she was taking 5 MG of lisinopril. PCP: Merari Kevin MD Patient called 12/04/21 and is requesting a medication refill for lisinopriL (PRINIVIL,ZESTRIL) 5 MG tablet atorvastatin (LIPITOR) 40 MG tablet This was confirmed from the current medication list found in the patients chart. Supply Requested: # of days: 90 days Method of receiving: Send to pharmacy Last set of flowsheet rows for OARRS report: OARRS/NARxCHECK Report Received and Assessed: No data found Date controlled substance agreement signed: No data found Date of last drug screen: No data found Functional Assessment: No data found Will this refill be sent to the preferred pharmacy listed below? Yes Preferred pharmacies: [address] [address] Pt Call Back Number Patient call back message sent to the primary care clinical pool. Kacey Zhong documented in this encounter [facility] 11-06-2021 History of Present illness Narrative Cardiology Clinic Visit Heart & Vascular [facility] 11/06/2021 Maya Duran MD [address] [place] [id number] Patient: Maddi Michele Date of : 1945 (76 y.o.) Referring Provider: No ref. provider found PCP: Merari Kevin MD Assessment & Plan Maddi Michele is a 76 y.o. woman with history of coronary artery disease status post PCI to the LAD in 2016, hypertension, hyperlipidemia, and irritable bowel syndrome who presents to clinic for follow up. Coronary artery disease status post PCI to the LAD-she denies symptoms of angina -Continue aspirin 81 mg daily -Continue Lipitor 40 mg daily -Continue metoprolol succinate 25 mg daily Hyperlipidemia-most recent LDL at goal -Continue atorvastatin 40 mg daily Hypertension-controlled -Continue lisinopril 10 mg daily Return in about 6 months (around 05/09/2022). Maya Duran MD [facility] Non-Invasive Cardiology [facility] Heart [facility] Vascular Chief Complaint: Follow-up (6 mo/no cardiac concerns at this time) Chris Michele is a 76 y.o. woman with history of coronary artery disease status post PCI to the LAD in 2016, hypertension, hyperlipidemia, and irritable bowel syndrome who presents to clinic for follow up. She continues to feel well. Denies chest pain and feeling short of breath. Denies PND and orthopnea. Denies LH and dizziness. Denies syncope. Denies palpitations. Review of Systems: Constitution: Negative. HENT: Negative. Cardiovascular: As above. Respiratory: As above. Endocrine: Negative. Skin: Negative. Musculoskeletal: Negative. Gastrointestinal: Negative. Genitourinary: Negative. Neurological: Negative. Psychiatric/Behavioral: Negative. Past Medical History: Diagnosis Date Arthritis Coronary artery disease Hyperlipidemia Hypertension IBS (irritable bowel syndrome) Past Surgical History: Procedure Laterality Date APPENDECTOMY BACK SURGERY BREAST AUGMENTATION BREAST IMPLANT REMOVAL CORONARY STENT PLACEMENT 2016 anterior decending x1 HYSTERECTOMY Family History Problem Relation Age of Onset Hypertension Mother Diabetes Father Heart attack Father Diabetes type I Child Social History Tobacco Use Smoking Status Former Smoker Quit date: 1979 Years since quittin.3 Smokeless Tobacco Never Used Allergies: Bactrim [sulfamethoxazole-trimethoprim], Sulfa (sulfonamide antibiotics), and Meloxicam HOME Medications: Current Outpatient Medications on File Prior to Visit Medication Sig amLODIPine (NORVASC) 5 MG tablet Take 5 mg by mouth daily . ascorbic acid, vitamin C, (VITAMIN C) 1000 MG tablet Take 1,000 mg by mouth daily . aspirin 81 mg chewable tablet Chew and Swallow 81 mg daily . atorvastatin (LIPITOR) 40 MG tablet Take 40 mg by mouth daily . calcium carbonate-vitamin D3 600mg (1,500mg) -1,000 unit cap Take 1 tablet by mouth 2 (two) times a day . cyanocobalamin (B-12) 1000 MCG tablet Take 1,000 mcg by mouth daily . denosumab (Prolia) 60 mg/mL Syrg Inject 60 mg under the skin Every 6 months . folic acid (FOLVITE) 1 MG tablet Take 1 mg by mouth daily . leucovorin (WELLCOVORIN) 15 MG tablet Take 15 mg by mouth every 7 days After methotrexate . lisinopriL (PRINIVIL,ZESTRIL) 10 MG tablet Take 1 (one) tablet (10 mg total) by mouth daily . methotrexate (TREXALL) 2.5 MG tablet Take 10 mg by mouth once a week . metoprolol succinate (TOPROL-XL) 25 MG 24 hr tablet Take 1 (one) tablet (25 mg total) by mouth every night at bedtime . vit A/vit C/vit E/zinc/copper (ICAPS AREDS ORAL) Take by mouth 2 (two) times a day . [DISCONTINUED] denosumab (PROLIA) 60 mg/mL Syrg Inject under the skin . No current facility-administered medications on file prior to visit. Physical Examination: BP 113/78 (BP Location: Right arm) Pulse (!) 55 Ht 4' 9 Wt 36.7 kg (81 lb) SpO2 98% BMI 17.53 kg/m Constitutional: Appears well-developed and well-nourished. No distress. HENT: Head: Normocephalic and atraumatic. Eyes: Conjunctivae and EOM are normal. No scleral icterus. Neck: Normal range of motion. Cardiovascular: Normal rate and regular rhythm. Exam reveals no gallop and no friction rub. No murmur heard. No JVP elevation. No LE edema. Pulmonary/Chest: Effort normal and breath sounds normal. No respiratory distress. No wheezes. No rales. Abdominal: Soft. Bowel sounds are normal. There is no abdominal tenderness. Musculoskeletal: Normal range of motion. Neurological: AOx3, moving all ext. Skin: Skin is warm and dry. No rash noted. Psychiatric: Normal mood and affect. Cardiovascular Studies: Left heart catheterization from 05/01/2016 Successful PCI of the mid LAD with 3.5 x 22 mm resolute drug-eluting stent ECG from 08/30/2019-normal sinus rhythm Labs: Outside lab work from September 05, 2020 Sodium 139, potassium 4.2, chloride 104, bicarb 29, BUN 20, creatinine 0.66, calcium 9.3, total cholesterol 157, HDL 76, LDL 68, triglycerides 63 Lab Results Component Value Date GLUCOSE 104 (H) 09/06/2021 CALCIUM 9.2 10/09/2021 CALCIUM 9.0 10/09/2021 NA 140 09/06/2021 K 4.4 09/06/2021 CL 103 09/06/2021 BUN 24 09/06/2021 CREATININE 0.81 09/06/2021 Lab Results Component Value Date WBC 5.89 09/06/2021 HGB 12.5 09/06/2021 HCT 40.1 09/06/2021 MCV 93.9 09/06/2021 PLT 258 09/06/2021 RBC 4.27 09/06/2021 documented in this encounter [facility] 11-06-2021 Instructions Malik Erickson RN - 11/06/2021 1:50 PM EDT How to contact your Care Team: Provider: Maya Duran MD Nurse: Malik Erickson RN In case of an emergency please call [phone]. REFILLS: When in need for refills please call your care team or the office at [phone]. Please include medication name, pharmacy name, and specify 30-day or 90-day supply. Please check with your pharmacy within 24 hours of request for your refill. You must follow up as directed to continue current refills. Thank you documented in this encounter [facility] 07-24-2021 History of Present illness Narrative Images from the original note were not included. Imani Hancock DPM Patient Name: Maddi Michele. . Date of : 1945, 76 y.o.. Gender: female. Subjective: Patient is a pleasant 76-year-old female who is presents to clinic with her spouse to re-discussed surgical evaluation regarding her right great toe arthritic joint and pain. Patient states that she developed a wound on her right great toe joint and has been applying Vaseline daily. No other pedal complaints at this time. Denies fevers, chills, nausea, vomiting, chest pain, shortness of breath, or any other constitutional symptoms. Physical Examination: BP 119/76 (BP Location: Right arm) Pulse 60 Temp 97.7 F (36.5 C) General Appearance: Alert, cooperative, no distress, appears stated age. Podiatric Exam Vascular: DP and PT pulses are faintly palpable 1/4. Capillary refill time is brisk to distal digits. Skin temperature is warm to cool from proximal tibial tuberosity to distal digit. Varicosities noted bilaterally. Neurological: Gross sensation is intact. Protective sensation is intact. Dermatologic: The previously noted preulcerative lesion on the dorsal medial aspect of the first metatarsophalangeal joint, right foot, has now opened up into wound. Wound bed is fibrous granular. It does not probe to bone. Mild erythema and edema noted. Interdigital spaces are clean dry and intact. Musculoskeletal: Pain on palpation to the medial eminence of the first MPJ, right foot. Absent first MPJ, right foot. Range of motion ankle joint range of motion is intact. Muscle strength is 5/5 to dorsiflexors, plantar flexors, inverters and everters. Compartments soft and compressible. No calf pain. Assessment: 1. Ulcer of right foot, with fat layer exposed ([facility]) 2. PAD (peripheral artery disease) ([facility]) Segmental Doppler Lower Extremity Arterial 3. Primary osteoarthritis of right foot 4. Right foot pain Imaging: Right foot 3 views weightbearing radiographs were reviewed as follows: Joint space loss noted at the first metatarsophalangeal joint with extensive osteophytic formation and arthrodesis across the joint. A large medial eminence can be appreciated secondary to osteophytic formation Remaining joints are narrowed. No fracture dislocations noted. Osteopenia noted. Plan: Patient was seen and evaluated. Discussed all clinical findings. Patient has multiple pedal issues that I discussed thoroughly with her spouse today pertaining to plans for surgical intervention. 1. Patient has end-stage arthritis of the first metatarsophalangeal joint with extensive osteophytic formation across the first MPJ. Given that this joint appears to have undergone autofusion, at least 50% radiographically, patient may benefit from surgical excision of the medial osteophytic prominence to alleviate pain from rubbing against shoes. I discussed her surgical risks, benefits, and postoperative course. 2. Patient has now an open ulceration at the medial prominence that requires immediate attention. Discussed with patient that surgical/excisional debridement of the wound is necessary to remove nonviable soft tissue and biofilm and to allow the wound to heal quickly. This was performed using a #15 blade down to and including subcutaneous tissue. Patient tolerated procedure well. No anesthesia secondary to mild neuropathy. Hemostasis achieved with compression. Post debridement of wound measured 0.3 x 0.3 x 0.2 cm. Applied Tiffani, 4 x 4, Kerlix and German bandage. Patient is to change dressing after 3 days and to apply Neosporin and a Band-Aid. Discussed with patient and her spouse that no surgical intervention until the wound heals completely. 3. Patient has poor pedal pulses and therefore segmental arterial Doppler studies test was ordered as it is medically necessary to evaluate patient's peripheral perfusion prior to decision to proceeding with any surgical intervention. All questions were answered to patient satisfaction. Patient understands to call with any questions or concerns. Patient is to follow-up in 1 week for evaluation of wound. Patient understand that she will be scheduled accordingly for the segmental arterial Doppler studies test Overall, I spent a total of 35 minutes with patient and her spouse Imani Hancock DPM, MS Podiatric Physician & Surgeon documented in this encounter [facility] 07-24-2021 Crow Boyer, TECHNOLOGIST - 07/24/2021 2:01 PM EST Images from the original note were not included. documented in this encounter [facility] 06-04-2021 Miscellaneous Notes Associated Problem(s): Medicare annual wellness visit, subsequent Medicare wellness visit was performed today I have reviewed the history, physical, medication list and care team with patient. Code status discussed. Minicog test was completed. Steadi Assessment was completed. Associated Problem(s): At low risk for fall Low risk for falls Advised patient to take vitamin D and calcium daily Handouts given to patient in AVS Associated Problem(s): Encounter for hepatitis C screening test for low risk patient We will get hepatitis C blood test completed today documented in this encounter [facility] 06-04-2021 Instructions Merari Kevin MD - 06/04/2021 10:40 AM EST STEADI Low Risk Patient Instructions: Your Falls Screening today shows that you are at low risk for falls. To further protect yourself from falls and maintain your independence, we recommend: 1. Read through the brochure, What You Can Do to Prevent Falls (from CDC). 2. Go through the brochure, Check for Safety: A Home Fall Prevention Checklist for Older Adults (from CDC), and make changes as recommended. 3. Join a community falls prevention program: Stepping On, a 7-week evidence based program that teaches balance exercises and fall prevention strategies Trev Chi for older adults, group exercise that teaches Trev Chi forms that reduce fall risk (weight shifting, postural alignment and control, and coordinated movements of the arms, legs, head, and trunk) Matter of Balance, an evidence based program designed to reduce the fear of falling and increase activity levels of older adults OR an exercise class for strength and balance. 4. Take your Vitamin D with or without Calcium, as determined by your healthcare provider. 5. Get your vision and hearing checked annually. Falls At Home Each year, thousands of older Americans fall at home. Many of them are seriously injured, and some are disabled. In 2011, nearly 23,000 people over age 65 and 2.4 million were treated in emergency departments because of falls. Falls are often due to hazards that are easy to overlook but easy to fix. This checklist will help you find and fix those hazards in your home. The checklist asks about hazards found in each room of your home. For each hazard, the checklist tells you how to fix the problem. At the end of the checklist, you ll find other tips for preventing falls. FLOORS: Look at the floor in each room. Q: When you walk through a room, do you have to walk around furniture? A. Ask someone to move the furniture so your path is clear Q: Do you have throw rugs on the floor? A. Remove the rugs or use double-sided tape or a non-slip backing so the rugs won t slip. Q: Are there papers, books, towels, shoes, magazines, boxes, blankets, or other objects on the floor? A.setter up things that are on the floor. Always keep objects off the floor. Q: Do you have to walk over or around wires or cords (like lamp, telephone, or extension cords)? A. Coil or tape cords and wires next to the wall so you can t trip over them. If needed, have an electrician supervisor substation put in another outlet. STAIRS AND STEPS: Look at the stairs you use both inside and outside your home. Q: Are there papers, shoes, books, or other objects on the stairs? A. setter up things on the stairs. Always keep objects off stairs. Q: Are some steps broken or uneven? A. Fix loose or uneven steps. Q: Are you missing a light over the stairway? A. Have an electrician supervisor substation put in an overhead light at the top and bottom of the stairs. Q: Do you have only one light switch for your stairs (only at the top or at the bottom of the stairs)? A. Have an electrician supervisor substation put in a light switch at the top and bottom of the stairs. You can get light switches that glow. Q: Has the stairway light bulb burned out? A. Have a friend or family member change the light bulb. Q: Is the carpet on the steps loose or torn? A. Make sure the carpet is firmly attached to every step, or remove the carpet and attach non-slip rubber treads to the stairs. Q: Are the handrails loose or broken? Is there a handrail on only one side of the stairs? A. Fix loose handrails or put in new ones. Make sure handrails are on both sides of the stairs and are as long as the stairs. KITCHEN: Look at your kitchen and eating area. Q: Are the things you use often on high shelves? A. Move items in your cabinets. Keep things you use often on the lower shelves (about waist level). Q: Is your step stool unsteady? A. If you must use a step stool, get one with a bar to hold on to. Never use a chair as a step stool. BATHROOMS: Look at all your bathrooms. Q: Is the tub or shower floor slippery? A. Put a non-slip rubber mat or self-stick strips on the floor of the tub or shower. Q: Do you need some support when you get in and out of the tub or up from the toilet? A. Have grab bars put in next to and inside the tub and next to the toilet. BEDROOMS: Look at all your bedrooms. Q: Is the light near the bed hard to reach? A. Place a lamp close to the bed where it s easy to reach. Q: Is the path from your bed to the bathroom dark? A. Put in a night-light so you can see where you re walking. Some night-lights go on by themselves after dark. Other Things You Can Do to Prevent Falls Do exercises that improve your balance and make your legs stronger. Exercise also helps you feel better and more confident. Have your doctor or pharmacist look at all the medicines you take, even dngw-ybl-qbzxyns medicines. Some medicines can make you sleepy or dizzy. Have your eyes checked by an eye doctor at least once a year and update your glasses. Get up slowly after you sit or lie down. Wear shoes both inside and outside the house. Avoid going barefoot or wearing slippers. Improve the lighting in your home. Put in brighter light bulbs. Florescent bulbs are bright and cost less to use. It s safest to have uniform lighting in a room. Add lighting to dark areas. Hang lightweight curtains or shades to reduce glare. [place] a contrasting color on the top edge of all steps so you can see the stairs better. For example, use a light color paint on dark wood. To access this brochure online, please visit the CDC website at http://www.cdc.gov/steadi/pdf/check_fo r_safety_brochure-a.pdf Chair Rise Exercise What it does: Strengthens the muscles in your thighs & buttocks. Goal: To do this exercise without using your hands as you become stronger. How to do it: 1. Sit toward the front of a sturdy chair with your knees bent & feet flat on the floor shoulder-width apart 2. Rest your hands lightly on the seat on either side of you, keeping your back & neck straight & and chest slightly forward. 3. Breathe in slowly. Lean forward & feel your weight on the front of your feet. 4. Breathe out and slowly stand up, using your hands as little as possible. 5. Pause for a full breath in & out. 6. Breathe in as you slowly sit down. Do not let yourself collapse back down into the chair. Rather, control your lowering as much as possible. 7. Breathe out. Repeat 10-15 times. If this number is too hard for you when you first start practicing this exercise, begin with fewer and work up to this number. Rest for a minute & then do a final set of 10-15. For detailed instructions, please visit the CDC website at http://www.cdc.gov/steadi/pdf/chair_ri se_exercise-a.pdf Stepping On is an evidence based program proven to reduce falls in older adults. It is a workshop offered once a week for seven weeks. In a small-group setting, you will learn balance exercises and develop specific knowledge and skills to prevent falls. Older adults who should attend are those who: are at risk of falling who have fallen one or more times lives at home are able to walk without the help of another person Local guest experts provide information on exercise, safety, vision, and medications. Classes are offered at [facility]. To find out specifics about a class, please call [phone]. Trev chi: Moving for Better Balance involves low impact exercise. The 12-week class is offered for three hours per week and is led by a trained art history instructor. It is intended for people aged 60 and older. Participants learn and perform a program of eight forms that progress from easy to more difficult. The program can accommodate persons with various physical conditions. Health Benefits of Trev Chi: Moving for Better Balance: Improved social and mental well-being, Improved balance and physical functioning, Improved confidence in conducting daily activities, Reduced risk of falling and sustaining associated injuries, and Maintained independence and improved quality of life. To find a Trev Chi program in your area or additional resources about fall prevention please contact: [facility] Violence and Injury Prevention Program at [phone] or [email or web address] A Matter of Balance: Managing Concerns about Falls is an evidence based program designed to reduce the fear of falling and increase activity levels of older adults. A trained curriculum facilitator leads 8 two-hour sessions for small groups of older adults. The class is intended for people 60 and older who are at risk of falling have a fear of falling or restrict activities who have fallen in the past are interested in improving flexibility, balance, and strength. Participants will learn to view falls as controllable, set goals to increase activity levels, and reduce fall risks at home. Classes are offered in all [address] [place] [address] in [place]. For more information about specific classes near you, please visit http://aging.[place].gov/steadyu/resource s/matterofbalance.aspx. documented in this encounter [facility] 06-04-2021 History of Present illness Narrative Assessment/ Plan: Maddi Michele is a 76 y.o. female During the course of the visit the patient was educated and counseled about appropriate screening and preventive services, as noted in the written plan. Patient Instructions (the written plan) was given to the patient - see AVS. Problem List Items Addressed This Visit Other Encounter for hepatitis C screening test for low risk patient We will get hepatitis C blood test completed today Relevant Orders Hepatitis C Antibody At low risk for fall - Primary Low risk for falls Advised patient to take vitamin D and calcium daily Handouts given to patient in AVS Medicare annual wellness visit, subsequent Medicare wellness visit was performed today I have reviewed the history, physical, medication list and care team with patient. Code status discussed. Minicog test was completed. Steadi Assessment was completed. Return in about 1 year (around 06/04/2022) for Annual Exam. Subjective: Maddi Michele is a 76 y.o. female with a PMHx of osteoporosis, cad w/ pci, hypertension who presents for a Medicare exam. Other issues/concerns: No acute concerns today. Comprehensive Medical and Social History: Patient Active Problem List Diagnosis Spondylolisthesis, acquired Radiculopathy, lumbosacral region Atherosclerotic heart disease of [place] coronary artery without angina pectoris Hypertension Irritable bowel syndrome Osteoporosis Arthritis Myelopathy (HCC) Encounter for hepatitis C screening test for low risk patient At low risk for fall Medicare annual wellness visit, subsequent Past Surgical History: Procedure Laterality Date APPENDECTOMY BACK SURGERY BREAST AUGMENTATION BREAST IMPLANT REMOVAL CORONARY STENT PLACEMENT 2016 anterior decending x1 HYSTERECTOMY Allergies Allergen Reactions Bactrim [Sulfamethoxazole-Trimethoprim] Sulfa (Sulfonamide Antibiotics) Meloxicam GI intolerance Current Outpatient Medications Medication Sig Dispense Refill amLODIPine (NORVASC) 5 MG tablet Take 5 mg by mouth daily . ascorbic acid, vitamin C, (VITAMIN C) 1000 MG tablet Take 1,000 mg by mouth daily . aspirin 81 mg chewable tablet Chew and Swallow 81 mg daily . atorvastatin (LIPITOR) 40 MG tablet Take 40 mg by mouth daily . calcium carbonate-vitamin D3 600mg (1,500mg) -1,000 unit cap Take 1 tablet by mouth 2 (two) times a day . cyanocobalamin (B-12) 1000 MCG tablet Take 1,000 mcg by mouth daily . denosumab (Prolia) 60 mg/mL Syrg Inject 60 mg under the skin Every 6 months . denosumab (PROLIA) 60 mg/mL Syrg Inject under the skin . folic acid (FOLVITE) 1 MG tablet Take 1 mg by mouth daily . lisinopriL (PRINIVIL,ZESTRIL) 10 MG tablet Take 1 (one) tablet (10 mg total) by mouth daily . 30 tablet 11 metoprolol succinate (TOPROL-XL) 25 MG 24 hr tablet 25 mg every night at bedtime . traMADoL (ULTRAM) 50 mg tablet TAKE 1 TABLET BY MOUTH 3 TIMES DAILY NEEDED FOR 30 DAYS vit A/vit C/vit E/zinc/copper (ICAPS AREDS ORAL) Take by mouth 2 (two) times a day . No current facility-administered medications for this visit. Social History Socioeconomic History Marital status: Tobacco Use Smoking status: Former Smoker Quit date: 1979 Years since quittin.9 Smokeless tobacco: Never Used Vaping Use Vaping Use: Never used Substance and Sexual Activity Alcohol use: Yes Comment: occasional Drug use: Never LABS: Labs reviewed over the last year What is your exercise level?: Moderate What is your diet?: Regular Can you prepare your own meals?: Yes Do you have trouble with finding transportation?: No Because of any health problems, do you need the help of another person with your personal care needs? (For example, eating, bathing, dressing, or getting around the house.): No Does your home have throw rugs, poor lighting or slippery bathtub or shower?: No Does your home have grab bars in bathrooms or handrails on stairs and steps?: Yes During the past four weeks, how would you rate your health in general?: Good Whether or not you use a hearing aid, do you think you have a hearing problem or do others think you have a hearing problem?: No Whether or not you use glasses or contacts, do you have difficulty driving, watching television, reading, or doing any of your daily activities because of your eyesight?: (!) Yes In the past six months, have you had an unexplained weight loss of 10 pounds or more?: No How often do you have trouble taking medicines the way you have been told to take them?: I always take as prescribed Activities of Daily Living In your present state of health, do you have any difficulty performing the following activities?: Preparing food and eating?: No Bathing yourself: No Getting dressed: No Using the toilet: No Moving around from place to place: No Nutritional Assessment Dietary issues discussed: yes Financial Assessment Can you afford your medical care? Yes Functional Ability/Safety Screening Current Falls Risk Score: 0 Previous Falls Risk Score: 0 Substance use Do you use any alcohol? No If yes: Type Quantity per setting Quanity per week Evaluation of Cognitive Function Mood / affect: Normal mood/affect Appearance: Clean Mini Cog Score: 4 Discussion of Advance Directive yes Advanced Directives on file: N If you were unable to speak for yourself, who would you want to make your medical decisions for you? Do you have a DPOA for this person? Daughter- Mary Kay Pantoja daughter If your heart was to stop, would you want CPR/ shocked to try to brought back to life? Yes If you are being kept alive with tubes and machines, would that be ok for you? yes Review of Systems gen- no fever or chills, no fatigue, no unintentional weight loss CV- no chest pain, no LE edema respiratory- no dyspnea, no cough abdominal- no melena, no hematochezia, no constipation musc- +bilateral hand and knee pain (chronic), + arthralgias skin- no rash psych- no depression or anxiety sx Objective: Wt Readings from Last 3 Encounters: 06/04/21 37.2 kg (82 lb) 05/22/21 36.7 kg (81 lb) 04/23/21 38.6 kg (85 lb) Blood pressure 114/81, pulse 82, temperature 98.5 F (36.9 C), temperature source Temporal, resp. rate 16, height 4' 9 , weight 37.2 kg (82 lb). Body mass index is 17.74 kg/m . Suggested Health Maintenance Due: Health Maintenance Due Topic Date Due Hepatitis C Screening Never done Hep C screen - will complete today Low dose lung CT screen (50-80 y/o, 20 pack yr smoker and current or quit <15 years ago)? -Quit 41 years ago Vaccines required? Patient required influenza vaccination and COVID-19 booster. Risk versus benefits were discussed with patient however patient declined vaccinations at this time. DEXA scan patient completed this 1 year ago she does have a history of osteoporosis. Receiving Prolia shots. She will have DEXA scan completed next year. documented in this encounter [facility] 06-04-2021 History of Present illness Narrative Images from the original note were not included. Imani Hancock DPM Patient Name: Maddi Michele. . Date of : 1945, 76 y.o.. Gender: female. Subjective: Patient is a pleasant 76-year-old female who is a clinic for follow-up of right great toe joint pain. Patient states that the last a steroid injection caused a flareup to her right great toe. She stated meloxicam has been causing her to vomit. She has since stopped taking meloxicam. No other pedal complaints at this time. Denies fevers, chills, nausea, vomiting, chest pain, shortness of breath, or any other constitutional symptoms. Physical Examination: BP 127/85 (BP Location: Right arm, Patient Position: Sitting, BP Cuff Size: Adult) Pulse (!) 51 Temp (!) 95.7 F (35.4 C) (Infrared) General Appearance: Alert, cooperative, no distress, appears stated age. Podiatric Exam Vascular: DP and PT pulses are faintly palpable 1/4. Capillary refill time is brisk to distal digits. Skin temperature is warm to cool from proximal tibial tuberosity to distal digit. Varicosities noted bilaterally. Neurological: Gross sensation is intact. Protective sensation is intact. Dermatologic: Preulcerative lesion noted at the dorsal lateral aspect of her first MPJ, right foot. Mild erythema and edema noted. Interdigital spaces are clean dry and intact. Musculoskeletal: Pain on palpation to the medial eminence of the first MPJ, right foot. Absent first MPJ, right foot. Range of motion ankle joint range of motion is intact. Muscle strength is 5/5 to dorsiflexors, plantar flexors, inverters and everters. Compartments soft and compressible. No calf pain. Assessment: 1. Primary osteoarthritis of right foot 2. Right foot pain Imaging: Right foot 3 views weightbearing radiographs were reviewed as follows: Joint space loss noted at the first metatarsophalangeal joint with extensive osteophytic formation and arthrodesis across the joint. A large medial eminence can be appreciated secondary to osteophytic formation Remaining joints are narrowed. No fracture dislocations noted. Osteopenia noted. Plan: Patient was seen and evaluated. Discussed all clinical findings. Patient has end-stage arthritis of the first metatarsophalangeal joint with extensive osteophytic formation across the first MPJ. Patient did not benefit from steroid injection or meloxicam. At this time, patient has exhausted all conservative options.I briefly discussed with patient surgical intervention of her first metatarsophalangeal joint. Two options are available: 1) excision of medial osteophytic prominence versus 2) first metatarsophalangeal joint fusion. No guarantees were made that her pain can be alleviated. I also discussed her postoperative course. Patient states that she will have to think about physical intervention prior to agreeing to proceed with it. Emphasized with patient importance of wearing good supportive shoes with a stiff sole. Additionally, emphasized the importance of wearing well-padded shoes to prevent rubbing against her osseous prominences. All questions were answered to patient satisfaction. Patient understands to call with any questions or concerns. Imani Hancock DPM, MS Podiatric Physician & Surgeon documented in this encounter [facility] 05-22-2021 History of Present illness Narrative Cardiology Clinic Visit Heart & Vascular [facility] 05/22/2021 Maya Duran MD [address] [place] [address] [phone] Patient: Maddi Michele Date of : 1945 (76 y.o.) Referring Provider: No ref. provider found PCP: Merari Kevin MD Assessment & Plan Maddi Michele is a 75 y.o. woman with history of coronary artery disease status post PCI to the LAD in 2016, hypertension, hyperlipidemia, and irritable bowel syndrome who presents to clinic to establish care. Coronary artery disease status post PCI to the LAD she denies symptoms of angina, shortness of breath and decreased exercise capacity. -Continue aspirin 81 mg daily Continue Lipitor 40 mg daily Continue metoprolol succinate 25 mg daily Hyperlipidemia most recent LDL at goal Continue atorvastatin 40 mg daily Hypertension controlled -Continue lisinopril 10 mg daily Return in about 6 months (around 11/19/2021). Maya Duran MD [facility] Non-Invasive Cardiology [facility] Heart and Vascular Chief Complaint: Follow-up (6 mo/no complaints) Chris Michele is a 76 y.o. woman with history of coronary artery disease status post PCI to the LAD in 2016, hypertension, hyperlipidemia, and irritable bowel syndrome who presents to clinic for follow up. She reports that she continues to feel well. She denies chest pain. She denies shortness of breath. She denies lower extremity swelling, PND and orthopnea. She denies palpitations. She denies lightheadedness and dizziness. She denies any episodes of syncope. Review of Systems: Constitution: Negative. HENT: Negative. Cardiovascular: As above. Respiratory: As above. Endocrine: Negative. Skin: Negative. Musculoskeletal: Negative. Gastrointestinal: Negative. Genitourinary: Negative. Neurological: Negative. Psychiatric/Behavioral: Negative. Past Medical History: Diagnosis Date Arthritis Coronary artery disease Hyperlipidemia Hypertension IBS (irritable bowel syndrome) Past Surgical History: Procedure Laterality Date APPENDECTOMY BACK SURGERY BREAST AUGMENTATION BREAST IMPLANT REMOVAL CORONARY STENT PLACEMENT 2016 anterior decending x1 HYSTERECTOMY Family History Problem Relation Age of Onset Hypertension Mother Diabetes Father Heart attack Father Diabetes type I Child Social History Tobacco Use Smoking Status Former Smoker Quit date: 1979 Years since quittin.9 Smokeless Tobacco Never Used Allergies: Bactrim [sulfamethoxazole-trimethoprim], Sulfa (sulfonamide antibiotics), and Meloxicam HOME Medications: Current Outpatient Medications on File Prior to Visit Medication Sig amLODIPine (NORVASC) 5 MG tablet Take 5 mg by mouth daily . ascorbic acid, vitamin C, (VITAMIN C) 1000 MG tablet Take 1,000 mg by mouth daily . aspirin 81 mg chewable tablet Chew and Swallow 81 mg daily . atorvastatin (LIPITOR) 40 MG tablet Take 40 mg by mouth daily . calcium carbonate-vitamin D3 600mg (1,500mg) -1,000 unit cap Take 1 tablet by mouth 2 (two) times a day . cyanocobalamin (B-12) 1000 MCG tablet Take 1,000 mcg by mouth daily . denosumab (Prolia) 60 mg/mL Syrg Inject 60 mg under the skin Every 6 months . folic acid (FOLVITE) 1 MG tablet Take 1 mg by mouth daily . lisinopriL (PRINIVIL,ZESTRIL) 10 MG tablet Take 1 (one) tablet (10 mg total) by mouth daily . metoprolol succinate (TOPROL-XL) 25 MG 24 hr tablet 25 mg every night at bedtime . traMADoL (ULTRAM) 50 mg tablet TAKE 1 TABLET BY MOUTH 3 TIMES DAILY NEEDED FOR 30 DAYS vit A/vit C/vit E/zinc/copper (ICAPS AREDS ORAL) Take by mouth 2 (two) times a day . No current facility-administered medications on file prior to visit. Physical Examination: BP 123/76 (BP Location: Right arm) Pulse (!) 53 Ht 4' 9 Wt 36.7 kg (81 lb) SpO2 96% BMI 17.53 kg/m Constitutional: Appears well-developed and well-nourished. No distress. HENT: Head: Normocephalic and atraumatic. Eyes: Conjunctivae and EOM are normal. No scleral icterus. Neck: Normal range of motion. Cardiovascular: Normal rate and regular rhythm. Exam reveals no gallop and no friction rub. No murmur heard. No JVP elevation. No LE edema. Pulmonary/Chest: Effort normal and breath sounds normal. No respiratory distress. No wheezes. No rales. Abdominal: Soft. Bowel sounds are normal. There is no abdominal tenderness. Musculoskeletal: Normal range of motion. Neurological: AOx3, moving all ext. Skin: Skin is warm and dry. No rash noted. Psychiatric: Normal mood and affect. Cardiovascular Studies: Left heart catheterization from 05/01/2016 Successful PCI of the mid LAD with 3.5 x 22 mm resolute drug-eluting stent ECG from 08/30/2019 normal sinus rhythm Labs: Outside lab work from September 05, 2020 Sodium 139, potassium 4.2, chloride 104, bicarb 29, BUN 20, creatinine 0.66, calcium 9.3, total cholesterol 157, HDL 76, LDL 68, triglycerides 63 Lab Results Component Value Date GLUCOSE 99 05/07/2021 CALCIUM 9.0 05/07/2021 NA 138 05/07/2021 K 4.2 05/07/2021 CL 106 05/07/2021 BUN 24 05/07/2021 CREATININE 0.62 05/07/2021 Lab Results Component Value Date WBC 6.96 05/07/2021 HGB 12.6 05/07/2021 HCT 39.3 05/07/2021 MCV 96.1 05/07/2021 PLT 291 05/07/2021 RBC 4.09 05/07/2021 documented in this encounter [facility] 05-22-2021 Instructions Malik Erickson RN - 05/22/2021 9:29 AM EST How to contact your Care Team: Provider: Maya Duran MD Nurse: Malik Erickson RN In case of an emergency please call 911. REFILLS: When in need for refills please call your care team or the office at [phone]. Please include medication name, pharmacy name, and specify 30-day or 90-day supply. Please check with your pharmacy within 24 hours of request for your refill. You must follow up as directed to continue current refills. Thank you documented in this encounter [facility] 03-26-2021 History of Present illness Narrative Images from the original note were not included. NEW Patient Visit Imani Hancock DPM Patient Name: Maddi Michele. . Date of : 1945, 75 y.o.. Gender: female. Subjective: Patient is a pleasant 75-year-old female who is a clinic complaining of right foot great toe joint pain. Patient states that she noticed some redness and swelling last week. She states that she has had arthritis in her bilateral feet with over 20-year-old surgeries. Patient believes that she may have worn poor shoes that caused for a blister to rise on her right foot. No other pedal complaints at this time. Denies fevers, chills, nausea, vomiting, chest pain, shortness of breath, or any other constitutional symptoms. Physical Examination: BP 101/61 Pulse (!) 55 Temp 98.1 F (36.7 C) (Infrared) General Appearance: Alert, cooperative, no distress, appears stated age. Podiatric Exam Vascular: DP and PT pulses are faintly palpable 1/4. Capillary refill time is brisk to distal digits. Skin temperature is warm to cool from proximal tibial tuberosity to distal digit. Varicosities noted bilaterally. Neurological: Gross sensation is intact. Protective sensation is intact. Dermatologic: Preulcerative lesion noted at the dorsal lateral aspect of her first MPJ, right foot. Mild erythema and edema noted. Interdigital spaces are clean dry and intact. Musculoskeletal: Pain on palpation to the medial eminence of the first MPJ, right foot. Absent first MPJ, right foot. Range of motion ankle joint range of motion is intact. Muscle strength is 5/5 to dorsiflexors, plantar flexors, inverters and everters. Compartments soft and compressible. No calf pain. Assessment: 1. Primary osteoarthritis of right foot 2. Right foot pain Imaging: Right foot 3 views weightbearing radiographs were ordered and interpreted as follows: Joint space loss noted at the first metatarsophalangeal joint with extensive osteophytic formation. A large medial eminence can be appreciated secondary to osteophytic formation Remaining joints are narrowed. No fracture dislocations noted. Osteopenia noted. Plan: Patient was seen and evaluated. Discussed all clinical findings. Patient has degenerative arthritis of the first metatarsophalangeal joint with extensive osteophytic formation to the first MPJ. Patient also has a preulcerative lesion to the medial aspect of the great toe joint secondary to her severe arthritis. Discussed with patient importance of wearing good supportive shoes with a stiff sole. Additionally, emphasized the importance of wearing well-padded shoes to prevent rubbing against her osseous prominences. Patient is to follow-up in 4 weeks for evaluation. If she is not improved, we will discuss surgical intervention. All questions were answered to patient satisfaction. Patient understands to call with any questions or concerns. Imani Hancock DPM, MS Podiatric Physician & Surgeon documented in this encounter [facility] 02-07-2021 Miscellaneous Notes Associated Problem(s): Arthritis Mixed picture of osteoarthritis and RA -diagnosed in [id number]- was previously on plaquenil but this was discontinued as she had vision changes +swan neck deformity and RA nodules -does follow up with rheum -currently using tramadol 50mg once daily, not tid Associated Problem(s): Osteoporosis Follows up with endocrinology for lenoia husseins Last dexa completed 1 year ago -no hx of fractures documented in this encounter [facility] 02-07-2021 History of Present illness Narrative Images from the original note were not included. Subjective Patient ID: Maddi Michele is a 75 y.o. female. Chief Complaint Patient presents with Knee Pain LEFT, PRESENT X YEARS , REFERRAL TO ORTHO REQUESTED HPI Pt is a very pleasant 75 yo with a PMHx of osteoporosis, cad w/ pci, hypertension presenting for left knee pain. Arthritis- was diagnosed with RA in but also has characteristics of osteoarthritis. Does have rheumatoid nodules-no on any therapy at this time but was prevously on plaquenil. This was discontinued due to vision changes. Patient states her left knee pain has gotten worse. Shis able to bare weight on it but if she stands for long periods of time , her leg goes numb. She does have crepitus and swelling but no effusion or erythema. She takes tramadol once daily for the pain- she states 'it helps take the edge off'. She cannot have nsaids due to hx of IBS and acetaminophen did not alleviate her symptoms. She would like to get a cortisone shot from orthopedic in [place] as her had has great success with this. She denies having any falls, any laxity/buckling. Osteoporosis- last dexa was one year ago patient follows up with endocrinology for prolia shot. No history of fractures. Currently taking multivitmin, vitamin d and calcium. All pertinent positives and negatives are documented in ROS Patient's medications, allergies, past medical history, surgical history history, family history, social history were reviewed. Spent more than 15 minutes with patient, coordinating patient care, including reviewing charts and counseling patient. Patient Active Problem List Diagnosis Spondylolisthesis, acquired Radiculopathy, lumbosacral region Atherosclerotic heart disease of [place] coronary artery without angina pectoris Hypertension Irritable bowel syndrome Osteoporosis Arthritis Past Surgical History: Procedure Laterality Date APPENDECTOMY BACK SURGERY BREAST AUGMENTATION BREAST IMPLANT REMOVAL CORONARY STENT PLACEMENT 2016 anterior decending x1 HYSTERECTOMY Family History Problem Relation Age of Onset Hypertension Mother Diabetes Father Heart attack Father Diabetes type I Child Social History Tobacco Use Smoking status: Former Smoker Quit date: 1979 Years since quittin.6 Smokeless tobacco: Never Used Vaping Use Vaping Use: Never used Substance Use Topics Alcohol use: Yes Comment: occasional Drug use: Never Allergies Allergen Reactions Bactrim [Sulfamethoxazole-Trimethoprim] Sulfa (Sulfonamide Antibiotics) Outpatient Medications as of 02/07/2021 Medication Sig ascorbic acid, vitamin C, (VITAMIN C) 1000 MG tablet Take 1,000 mg by mouth daily . aspirin 81 mg chewable tablet Chew and Swallow 81 mg daily . atorvastatin (LIPITOR) 40 MG tablet Take 40 mg by mouth daily . calcium carbonate-vitamin D3 600mg (1,500mg) -1,000 unit cap Take 1 tablet by mouth 2 (two) times a day . cyanocobalamin (B-12) 1000 MCG tablet Take 1,000 mcg by mouth daily . denosumab (Prolia) 60 mg/mL Syrg Inject 60 mg under the skin Every 6 months . lisinopriL (PRINIVIL,ZESTRIL) 10 MG tablet Take 1 (one) tablet (10 mg total) by mouth daily . metoprolol succinate (TOPROL-XL) 25 MG 24 hr tablet 25 mg every night at bedtime . traMADoL (ULTRAM) 50 mg tablet TAKE 1 TABLET BY MOUTH 3 TIMES DAILY NEEDED FOR 30 DAYS vit A/vit C/vit E/zinc/copper (ICAPS AREDS ORAL) Take by mouth 2 (two) times a day . Review of Systems Constitutional: Negative for appetite change, chills, fatigue and fever. Eyes: Negative for visual disturbance. Respiratory: Negative for shortness of breath. Cardiovascular: Negative for chest pain. Gastrointestinal: Negative for abdominal pain and blood in stool. Musculoskeletal: Positive for arthralgias (chronic) and joint swelling (hands bilateral, and left knee ). Negative for back pain and neck pain. Nodules at base of first digit bilaterally and on left side wrist -look like RA nodules Skin: Negative for rash. Neurological: Positive for numbness. Negative for headaches. Objective Vitals: 02/07/21 1102 BP: 119/81 BP Location: Left arm Patient Position: Sitting BP Cuff Size: Adult Pulse: (!) 59 Resp: 16 Temp: 97.8 F (36.6 C) TempSrc: Oral SpO2: 98% Weight: 38.9 kg (85 lb 12.8 oz) Height: 4' 9.25 Estimated body mass index is 18.41 kg/m as calculated from the following: Height as of this encounter: 4' 9.25 . Weight as of this encounter: 38.9 kg (85 lb 12.8 oz). Physical Exam Vitals and nursing note reviewed. Constitutional: Appearance: Normal appearance. Comments: Very thin HENT: Head: Normocephalic and atraumatic. Eyes: Extraocular Movements: Extraocular movements intact. Pulmonary: Effort: Pulmonary effort is normal. Breath sounds: Normal breath sounds. Abdominal: General: Abdomen is flat. Palpations: Abdomen is soft. Musculoskeletal: General: Deformity: mcp and pip bilaterally. Normal range of motion. Arms: Cervical back: Normal range of motion. Right knee: No swelling, deformity, erythema, bony tenderness or crepitus. Normal range of motion. No LCL laxity, MCL laxity, ACL laxity or PCL laxity. Left knee: Swelling and crepitus present. No erythema or bony tenderness. Normal range of motion. No LCL laxity, MCL laxity, ACL laxity or PCL laxity. Legs: Comments: Soft mobile nodules [place] neck deformities Skin: General: Skin is warm. Comments: Actinic keratosis on forehead and lower ext Neurological: General: No focal deficit present. Mental Status: She is alert and oriented to person, place, and time. Mental status is at baseline. Cranial Nerves: Cranial nerves are intact. No cranial nerve deficit. Sensory: No sensory deficit. Motor: Motor function is intact. Gait: Gait is intact. Gait normal. Deep Tendon Reflexes: Reflexes normal. Psychiatric: Mood and Affect: Mood normal. Behavior: Behavior normal. Thought Content: Thought content normal. Judgment: Judgment normal. Assessment/Plan: Problem List Items Addressed This Visit Musculoskeletal and Integument Osteoporosis - Primary Follows up with endocrinology for prolia shots Last dexa completed 1 year ago -no hx of fractures Arthritis Mixed picture of osteoarthritis and RA -diagnosed in [id number]- was previously on plaquenil but this was discontinued as she had vision changes +swan neck deformity and RA nodules -does follow up with rheum -currently using tramadol 50mg once daily, not tid Return in about 1 year (around 02/07/2022) for Follow Up chronic follow u. For any new medications prescribed today, patient was educated about indications for the medication, how to take the medication and potential side effects of the medications. Merari Kevin MD documented in this encounter [facility] 11-29-2020 History of Present illness Narrative Cardiology Clinic Visit Heart & Vascular [facility] 11/29/2020 Maya Duran MD [address] [place] [id number] Patient: Maddi Michele Date of : 1945 (75 y.o.) Referring Provider: Merari Kevin MD PCP: Merari Kevin MD Assessment & Plan Maddi Micheel is a 75 y.o. woman with history of coronary artery disease status post PCI to the LAD in 2016, hypertension, hyperlipidemia, and irritable bowel syndrome who presents to clinic to establish care. Coronary artery disease status post PCI to the LAD she denies symptoms of angina, shortness of breath and decreased exercise capacity. -Continue aspirin 81 mg daily Continue Lipitor 40 mg daily Continue metoprolol succinate 25 mg daily Hyperlipidemia most recent LDL at goal Continue atorvastatin 40 mg daily Hypertension controlled -Continue lisinopril 10 mg daily Return in about 6 months (around 06/01/2021). Maya Duran MD [facility] Non-Invasive Cardiology [facility] Heart and Vascular Chief Complaint: Coronary Artery Disease (transfer care from Cardiology. No cardiac complaints ) Chris Michele is a 75 y.o. woman with history of coronary artery disease status post PCI to the LAD in 2016, hypertension, hyperlipidemia, and irritable bowel syndrome who presents to clinic to establish care. She reports that she is very active. She walks about 5 to 6 miles 6 days a week. She reports that she is able to do this in about an hour. She does not have chest pain or shortness of breath with activity. She denies lower extremity swelling, PND and orthopnea. She denies palpitations. She denies lightheadedness and dizziness. She denies any episodes of syncope. She reports that she was recently seen by her primary care Dr. Kevin who increased her blood pressure medication due to uncontrolled hypertension. She reports that since then her blood pressure has been well controlled Review of Systems: Constitution: Negative. HENT: Negative. Cardiovascular: As above. Respiratory: As above. Endocrine: Negative. Skin: Negative. Musculoskeletal: Negative. Gastrointestinal: Negative. Genitourinary: Negative. Neurological: Negative. Psychiatric/Behavioral: Negative. Past Medical History: Diagnosis Date Coronary artery disease Hyperlipidemia Hypertension IBS (irritable bowel syndrome) Past Surgical History: Procedure Laterality Date APPENDECTOMY BACK SURGERY BREAST AUGMENTATION BREAST IMPLANT REMOVAL CORONARY STENT PLACEMENT 2016 anterior decending x1 HYSTERECTOMY Family History Problem Relation Age of Onset Hypertension Mother Diabetes Father Heart attack Father Diabetes type I Child Social History Tobacco Use Smoking Status Former Smoker Quit date: 1979 Years since quittin.4 Smokeless Tobacco Never Used Allergies: Bactrim [sulfamethoxazole-trimethoprim] and Sulfa (sulfonamide antibiotics) HOME Medications: Current Outpatient Medications on File Prior to Visit Medication Sig ascorbic acid, vitamin C, (VITAMIN C) 1000 MG tablet Take 1,000 mg by mouth daily . aspirin 81 mg chewable tablet Chew and Swallow 81 mg daily . atorvastatin (LIPITOR) 40 MG tablet Take 40 mg by mouth daily . calcium carbonate-vitamin D3 600mg (1,500mg) -1,000 unit cap Take 1 tablet by mouth 2 (two) times a day . cyanocobalamin (B-12) 1000 MCG tablet Take 1,000 mcg by mouth daily . denosumab (Prolia) 60 mg/mL Syrg Inject 60 mg under the skin Every 6 months . lisinopriL (PRINIVIL,ZESTRIL) 10 MG tablet Take 1 (one) tablet (10 mg total) by mouth daily . metoprolol succinate (TOPROL-XL) 25 MG 24 hr tablet 25 mg every night at bedtime . traMADoL (ULTRAM) 50 mg tablet TAKE 1 TABLET BY MOUTH 3 TIMES DAILY NEEDED FOR 30 DAYS vit A/vit C/vit E/zinc/copper (ICAPS AREDS ORAL) Take by mouth 2 (two) times a day . [DISCONTINUED] omega 0-opm-ebq-fish oil (Fish Oil) 100-160-1,000 mg cap Take 1 capsule by mouth . [DISCONTINUED] VITAMIN B COMPLEX ORAL Take 1 tablet by mouth daily . No current facility-administered medications on file prior to visit. Physical Examination: BP 116/74 (BP Location: Left arm, Patient Position: Sitting) Pulse (!) 51 Ht 4' 9.25 Wt 38.6 kg (85 lb) SpO2 99% BMI 18.23 kg/m Constitutional: Appears well-developed and well-nourished. No distress. HENT: Head: Normocephalic and atraumatic. Eyes: Conjunctivae and EOM are normal. No scleral icterus. Neck: Normal range of motion. Cardiovascular: Normal rate and regular rhythm. Exam reveals no gallop and no friction rub. No murmur heard. No JVP elevation. No LE edema. Pulmonary/Chest: Effort normal and breath sounds normal. No respiratory distress. No wheezes. No rales. Abdominal: Soft. Bowel sounds are normal. There is no abdominal tenderness. Musculoskeletal: Normal range of motion. Neurological: AOx3, moving all ext. Skin: Skin is warm and dry. No rash noted. Psychiatric: Normal mood and affect. Cardiovascular Studies: Left heart catheterization from 05/01/2016 Successful PCI of the mid LAD with 3.5 x 22 mm resolute drug-eluting stent ECG from 08/30/2019 normal sinus rhythm Labs: Outside lab work from September 05, 2020 Sodium 139, potassium 4.2, chloride 104, bicarb 29, BUN 20, creatinine 0.66, calcium 9.3, total cholesterol 157, HDL 76, LDL 68, triglycerides 63 documented in this encounter [facility] 11-29-2020 Instructions Malik Erickson RN - 11/29/2020 1:45 PM EDT How to contact your Care Team: Provider: Maya Duran MD Nurse: Mlaik Erickson RN In case of an emergency please call 911. REFILLS: When in need for refills please call your care team or the office at [phone]. Please include medication name, pharmacy name, and specify 30-day or 90-day supply. Please check with your pharmacy within 24 hours of request for your refill. You must follow up as directed to continue current refills. Thank you documented in this encounter [facility] 11-08-2020 History of Present illness Narrative Subjective Patient ID: Maddi Michele is a 75 y.o. female. Chief Complaint Patient presents with Establish Care HPI Pt is a very pleasant 75 yo with a PMHx of osteoporosis, cad w/ pci, hypertension presenting as a new patient to the clinic today Hypertension- pt does measure bp at home occasionally but does not remember the measurements. She states that her systolic bp stays around 160s at previous physicians appointments. She denies any shortness of breath, cp, headache, blurry vision. We did discuss increasing her lisinopril to 10mg for better blood pressure control and pt was amenable. CAD w/ pci- pt on asa and statin. No acute complaints. No MAYA, shortness of breath, cp, anginal symptoms. Pt does follow up with child care specialist. Pt would like a new referral for cardiology to establish care. Osteoporosis- pt gets prolia injection by her chief maintenance supervisor. They had ordered labs for the patient which she completed and were reviewed with the patient. Preventative Mammogram last mammogram was 2019. Patient denies any breast concerns at this time, nipple retraction, bloody discharge, lumps. Patient denies any history of abnormal Pap smears. She denies any vaginal complaints at this time, no postmenopausal bleeding. Colonoscopy- Pt had cologuard completed 2 years ago and it was negative. Patient denies abdominal pain, abdominal distention, constipation, diarrhea, melena or robles blood in her stool. DEXA scan- 2 years ago- will have repeat this year per chief maintenance supervisor. She does get prolia injections every 6 months Vaccinations-refused pneumococcal and shingrix Taking calcium 1200mg and vitamin D 1000IU-yes Today we discussed: -Getting screening tests that you and your doctor decide on. Screening helps find diseases before any symptoms appear. -Eating healthy foods. Choose fruits, vegetables, whole grains, protein, and low-fat dairy foods. Limit fat, especially saturated fat. Reduce salt in your diet. -Get at least 30 minutes of physical activity on most days of the week. -Reach and stay at a healthy weight. This will lower your risk for many problems, such as obesity, diabetes, heart disease, and high blood pressure. -Do not smoke or allow others to smoke around you. -Care for your mental health. It is easy to get weighed down by worry and stress. Learn strategies to manage stress, like deep breathing and mindfulness, and stay connected with your family and community.-Protect your skin from too much sun. When you're outdoors from 10 a.m. to 4 p.m., stay in the shade or cover up with clothing and a hat with a wide brim. Wear sunglasses that block UV rays. Even when it's cloudy, put broad-spectrum sunscreen (SPF 30 or higher) on any exposed skin. -See a dentist one or two times All pertinent positives and negatives are documented in ROS Patient's medications, allergies, past medical history, surgical history history, family history, social history were reviewed. Spent more than 30 minutes with patient, coordinating patient care, including reviewing charts and counseling patient. Patient Active Problem List Diagnosis Spondylolisthesis, acquired Senile osteoporosis Radiculopathy, lumbosacral region Osteoarthritis of finger of right hand Atherosclerotic heart disease of [place] coronary artery without angina pectoris Hypertension No past surgical history on file. No family history on file. Social History Tobacco Use Smoking status: Never Smoker Smokeless tobacco: Never Used Substance Use Topics Alcohol use: Yes Frequency: 2-3 times a week Drinks per session: 1 or 2 Binge frequency: Never Drug use: Never Allergies Allergen Reactions Sulfa (Sulfonamide Antibiotics) Outpatient Medications as of 11/08/2020 Medication Sig ascorbic acid, vitamin C, (VITAMIN C) 1000 MG tablet Take 1,000 mg by mouth daily . atorvastatin (LIPITOR) 40 MG tablet Take 40 mg by mouth daily . calcium carbonate-vitamin D3 600mg (1,500mg) -1,000 unit cap Take 1 tablet by mouth 2 (two) times a day . cyanocobalamin (B-12) 1000 MCG tablet Take 1,000 mcg by mouth daily . denosumab (Prolia) 60 mg/mL Syrg Inject 60 mg under the skin once . metoprolol succinate (TOPROL-XL) 25 MG 24 hr tablet every night at bedtime . traMADoL (ULTRAM) 50 mg tablet TAKE 1 TABLET BY MOUTH 3 TIMES DAILY NEEDED FOR 30 DAYS [DISCONTINUED] lisinopriL (PRINIVIL,ZESTRIL) 5 MG tablet Take 5 mg by mouth daily . omega 0-jvr-jws-fish oil (Fish Oil) 100-160-1,000 mg cap Take 1 capsule by mouth . Review of Systems Constitutional: Negative for appetite change, chills, fatigue and fever. HENT: Negative for ear pain and sore throat. Eyes: Negative for visual disturbance. Respiratory: Negative for cough, chest tightness, shortness of breath and wheezing. Cardiovascular: Negative for chest pain and palpitations. Gastrointestinal: Negative for abdominal distention, abdominal pain, blood in stool, constipation, diarrhea, nausea and vomiting. Genitourinary: Negative for dysuria, frequency, hematuria and urgency. Musculoskeletal: Positive for arthralgias (chronic) and joint swelling (hands). Negative for back pain and neck pain. Skin: Negative for rash. Neurological: Negative for dizziness, tremors, weakness, numbness and headaches. Psychiatric/Behavioral: Negative for decreased concentration, dysphoric mood and sleep disturbance. The patient is not nervous/anxious. Objective Vitals: 11/08/20 0856 11/08/20 0901 BP: (!) 164/90 (!) 166/81 BP Location: Left arm Left arm Patient Position: Sitting Sitting BP Cuff Size: Adult Adult Pulse: (!) 51 Resp: 16 Temp: 97.6 F (36.4 C) TempSrc: Oral SpO2: 97% Weight: 39.6 kg (87 lb 4.8 oz) Height: 4' 9.25 Estimated body mass index is 18.73 kg/m as calculated from the following: Height as of this encounter: 4' 9.25 . Weight as of this encounter: 39.6 kg (87 lb 4.8 oz). Physical Exam Vitals signs and nursing note reviewed. Constitutional: Appearance: Normal appearance. Comments: Very thin HENT: Head: Normocephalic and atraumatic. Mouth/Throat: Mouth: Mucous membranes are moist. Eyes: Extraocular Movements: Extraocular movements intact. Conjunctiva/sclera: Conjunctivae normal. Pupils: Pupils are equal, round, and reactive to light. Neck: Musculoskeletal: Normal range of motion. Cardiovascular: Rate and Rhythm: Normal rate and regular rhythm. Pulmonary: Effort: Pulmonary effort is normal. Breath sounds: Normal breath sounds. Abdominal: General: Abdomen is flat. There is no distension. Palpations: Abdomen is soft. Tenderness: There is no abdominal tenderness. Musculoskeletal: Normal range of motion. General: Deformity (mcp and pip bilaterally) present. Skin: General: Skin is warm. Neurological: General: No focal deficit present. Mental Status: She is alert and oriented to person, place, and time. Mental status is at baseline. Cranial Nerves: Cranial nerves are intact. No cranial nerve deficit. Motor: Motor function is intact. Gait: Gait is intact. Psychiatric: Mood and Affect: Mood normal. Behavior: Behavior normal. Thought Content: Thought content normal. Judgment: Judgment normal. PHQ9: Over the last 2 weeks, how often have you been bothered by any of the following problems? Little interest or pleasure in doing things: Not at all Feeling down, depressed, or hopeless: Not at all PHQ-2 Total Score: 0 Trouble falling or staying asleep, or sleeping too much: Not at all Feeling tired or having little energy: Not at all Poor appetite or overeating: Not at all Feeling bad about yourself - or that you are a failure or have let yourself or your family down: Not at all Trouble concentrating on things, such as reading the newspaper or watching television: Not at all Moving or speaking so slowly that other people could have noticed. Or the opposite - being so fidgety or restless that you have been moving around a lot more than usual: Not at all Thoughts that you would be better off , or of hurting yourself in some way: Not at all PHQ-9 Total Score: 0 If you checked off any problems, how difficult have these problems made it for you to do your work, take care of things at home, or get along with other people?: Not difficult at all CAN-7 Over the last 2 weeks, how often have you been bothered by the following problems? Feeling nervous, anxious or on edge: Not at all Not being able to stop or control worrying: Not at all Worrying too much about different things: Not at all Trouble relaxing: Several days Being so restless that it is hard to sit still: Not at all Becoming easily annoyed or irritable: Not at all Feeling afraid as if something awful might happen: Not at all CAN-7 Score: 1 Tobacco Counseling: Counseling given: Not Answered Assessment/Plan: Problem List Items Addressed This Visit Cardiovascular and Mediastinum Hypertension Please take blood pressure in the same arm, in a seated position, first thing in the morning for 2 weeks and record readings. If your blood pressure is at any time over 180/110 or below 90/60, please give clinic a call. Our goal blood pressure for ages over 65 is below 150/90 We will increase lisinopril to 10mg Relevant Medications metoprolol succinate (TOPROL-XL) 25 MG 24 hr tablet lisinopriL (PRINIVIL,ZESTRIL) 10 MG tablet Musculoskeletal and Integument Senile osteoporosis Follows up with endocrinology for prolia treatment Other Atherosclerotic heart disease of [place] coronary artery without angina pectoris - Primary S/p PCI On statin and ASA -no acute complaints Relevant Orders Ambulatory referral to Cardiology Return in about 6 months (around 05/11/2021) for medicare care wellness. For any new medications prescribed today, patient was educated about indications for the medication, how to take the medication and potential side effects of the medications. 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 If your blood pressure is at any time over 180/110 or below 90/60, please give clinic a call. 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 If your blood pressure is at any time over 180/110 or below 90/60, please give clinic a call. 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 If you haven't heard from anyone within 2 weeks please contact my office so we can look into the status of your referral. If you were given any labs today please ensure they are completed according to the directions given. Most normal results will be available through [facility] however if abnormal, you will be notified. Please allow 48-72 hours for review, and let you know what steps, if any, are needed next. If you haven't heard from us after that please call to inquire. If labs were ordered to be done PRIOR to your next visit we will discuss the results at the time of your office visit. If any procedures or imaging studies were ordered that must be prior authorized please give us 2 weeks to get them approved. Once approved someone should call you to schedule them or give you a date and time that they were scheduled for. If you haven't heard anything within 2 weeks of the office visit please call the office so we can look into their status. Customer Service/Billing Questions: [phone] [facility] Assistance: [phone] or [phone] Financial Assistance: [phone] or [phone] documented in this encounter [facility] Diagnosis Atherosclerosis of [place] coronary artery of [place] heart without angina pectoris- Primary Hypertension, unspecified type Hyperlipidemia, unspecified hyperlipidemia type [facility] Diagnosis Osteoporosis without current pathological fracture, unspecified osteoporosis type- Primary Rheumatoid arthritis, involving unspecified site, unspecified whether rheumatoid factor present (HCC) [facility] Diagnosis Primary osteoarthritis of right foot- Primary Right foot pain Pain in soft tissues of limb [facility] Diagnosis Atherosclerosis of [place] coronary artery of [place] heart without angina pectoris- Primary Hypertension, unspecified type Hyperlipidemia, unspecified hyperlipidemia type [facility]* Diagnosis Primary osteoarthritis of right foot- Primary Right foot pain Pain in soft tissues of limb [facility]* Diagnosis At low risk for fall- Primary Encounter for hepatitis C screening test for low risk patient Medicare annual wellness visit, subsequent [facility]* Diagnosis Ulcer of right foot, with fat layer exposed (HCC)- Primary PAD (peripheral artery disease) ([facility]) Unspecified peripheral vascular disease Primary osteoarthritis of right foot Right foot pain Pain in soft tissues of limb [facility] Diagnosis Other osteoporosis, unspecified pathological fracture presence [facility] Left knee pain, unspecified chronicity [facility] Diagnosis Coronary artery disease involving [place] coronary artery of [place] heart without angina pectoris- Primary Hypertension, unspecified type Hyperlipidemia, unspecified hyperlipidemia type [facility]* Diagnosis Localized swelling of left lower extremity- Primary Chest pain, unspecified type [facility]* Diagnosis Chest pain, unspecified type- Primary [facility]* Diagnosis Primary osteoarthritis of left knee- Primary Primary localized osteoarthrosis, lower leg [facility] Primary osteoarthritis of right foot- Primary PAD (peripheral artery disease) ([facility]) Unspecified peripheral vascular disease Right foot pain Pain in soft tissues of limb [facility] Diagnosis Bone spur of foot- Primary Primary osteoarthritis of right foot Elective surgery [facility] Diagnosis Bone spur of foot Primary osteoarthritis of right foot Medicare annual wellness visit, subsequent Primary osteoarthritis of right foot- Primary PAD (peripheral artery disease) (HCC) Unspecified peripheral vascular disease Right foot pain Pain in soft tissues of limb Bone spur of foot Primary osteoarthritis of right foot Elective surgery [facility]* Diagnosis Exostosis of bone of foot- Primary Postoperative state Other postprocedural status [facility]* Diagnosis Coronary artery disease involving [place] coronary artery of [place] heart without angina pectoris- Primary Localized swelling of left lower extremity Abnormal electrocardiogram (ECG) (EKG) Diminished pulse Other symptoms involving cardiovascular system Hyperlipidemia, unspecified hyperlipidemia type Hypertension, unspecified type [facility]* Diagnosis Exostosis of bone of foot- Primary Postoperative state Other postprocedural status [facility]* Diagnosis Primary osteoarthritis of left knee- Primary Primary localized osteoarthrosis, lower leg [facility] Diagnosis At low risk for fall- Primary Medicare annual wellness visit, subsequent [facility]* Diagnosis Senile osteoporosis- Primary [facility] Diagnosis Localized swelling of lower extremity [facility]* Diagnosis Dilated intrahepatic bile duct- Primary Calculus of gallbladder with biliary obstruction but without cholecystitis [facility]* Diagnosis Senile osteoporosis- Primary [facility] [place] Diagnosis Primary osteoarthritis of left knee- Primary Primary localized osteoarthrosis, lower leg [facility] Diagnosis Left lower quadrant abdominal pain- Primary [facility]* Diagnosis Other osteoporosis, unspecified pathological fracture presence- Primary [facility] [place] [facility]* Diagnosis Epigastric pain- Primary Abdominal pain, epigastric Esophageal dysphagia Dysphagia, pharyngoesophageal phase Anorexia [facility]* Diagnosis Epigastric pain- Primary Abdominal pain, epigastric Pancreatic cyst Cyst and pseudocyst of pancreas Esophageal dysphagia Dysphagia, pharyngoesophageal phase Epigastric pain Abdominal pain, epigastric Esophageal dysphagia Dysphagia, pharyngoesophageal phase Anorexia Epigastric pain Abdominal pain, epigastric Esophageal dysphagia Dysphagia, pharyngoesophageal phase Anorexia [facility]* Diagnosis Epigastric pain- Primary Abdominal pain, epigastric Esophageal dysphagia Dysphagia, pharyngoesophageal phase Anorexia Epigastric pain Abdominal pain, epigastric Esophageal dysphagia Dysphagia, pharyngoesophageal phase Anorexia [facility]* Diagnosis Epigastric pain- Primary Abdominal pain, epigastric Gastric ulcer, unspecified chronicity, unspecified whether gastric ulcer hemorrhage or perforation present [facility]* Diagnosis Peptic ulcer disease- Primary Peptic ulcer, unspecified site, unspecified as acute or chronic, without mention of hemorrhage, perforation, or obstruction Uncontrolled hypertension Cellulitis of right ear Mixed hyperlipidemia [facility] Diagnosis Foreign body in auricle of right ear, initial encounter- Primary Cellulitis of auricle of right ear [facility] [place] [facility]* Diagnosis Medicare annual wellness visit, subsequent- Primary At low risk for fall Peptic ulcer disease Peptic ulcer, unspecified site, unspecified as acute or chronic, without mention of hemorrhage, perforation, or obstruction Essential hypertension Unspecified essential hypertension documented in this encounter [facility] for referral (narrative)* Consultation (Routine) - New Request Specialty Diagnoses / Procedures Referred By Angie t Referred To Contact Rheumatology Diagnoses Other osteoporosis, unspecified pathological fracture presence Mustapha Nj MD [address] [place] [address] [facility] [address] [place] [address] Referral ID Status Reason Start Date Expiration Date V isits Requested Visits Authorized [id number] New Request 01/26/2023 02/20/2024 1 1 * Radiology (Routine) - New Request Specialty Diagnoses / Procedures Referred By Angie t Referred To Contact Diagnoses Other osteoporosis, unspecified pathological fracture presence Procedures BONE DENSITY AXIAL (HIP, PELVIS, SPINE) Mustapha Nj MD [address] [place] [address] Referral ID Status Reason Start Date Expiration Date V isits Requested Visits Authorized [id number] New Request 01/21/2023 02/15/2024 1 1 [facility] Summary Purpose Family History No Family History Records Found Child Name Dates Details Family history of type 1 courtney betes mellitus(V18.0, Z83.3) Status:Active Mother Name Dates Details Family history of hypertensi on(V17.49, Z82.49) Status:Active Father Name Dates Details Family history of acute myoc ardial infarction(V17.3, Z82.49) Status:Active Family history of type 2 corutney betes mellitus(V18.0, Z83.3) Status:Active Unknown Family Member Name Dates Details Family history of hypertensi on: Mother(V17.49, Z82.49) Status:Active Family history of acute myoc ardial infarction: Father(V17.3, Z82.49) Status:Active Family history of type 2 courtney betes mellitus: Father(V18.0, Z83.3) Status:Active Family history of type 1 courtney betes mellitus: Child(V18.0, Z83.3) Status:Active Unknown Family Member Name Dates Details Family history of hypertensi on: Mother(V17.49, Z82.49) Status:Active Family history of acute myoc ardial infarction: Father(V17.3, Z82.49) Status:Active Family history of type 2 courtney betes mellitus: Father(V18.0, Z83.3) Status:Active Family history of type 1 courtney betes mellitus: Child(V18.0, Z83.3) Status:Active Unknown Family Member Name Dates Details Family history of type 1 courtney betes mellitus: Child(V18.0, Z83.3) Status:Active Family history of type 2 courtney betes mellitus: Father(V18.0, Z83.3) Status:Active Family history of acute myoc ardial infarction: Father(V17.3, Z82.49) Status:Active Family history of hypertensi on: Mother(V17.49, Z82.49) Status:Active Advance Directives No Advanced Directives Records FoundDocuments on File Type Date Recorded Patient Eyeglass Lens Grinder Expl anation Advance Directives and Living Will Documents on File Type Date Recorded Patient Eyeglass Lens Grinder Expl anation Advance Directives and Living Will Documents on File Type Date Recorded Patient Eyeglass Lens Grinder Expl anation Advance Directives and Livin g Will 05/22/2021 9:17 AM Documents on File Type Date Recorded Patient Eyeglass Lens Grinder Expl anation Advance Directives and Livin g Will 05/22/2021 9:17 AM Documents on File Type Date Recorded Patient Eyeglass Lens Grinder Expl anation Advance Directives and Livin g Will 07/29/2021 11:54 AM Reason for Referral Status Reason Specialty Diagnoses / Procedures Referred By Contact Referred To Contact Authorized Specialty Services Required/Patien t's Best Interest Cardiology Diagnoses Atherosclerosis of [place] coronary artery of [place] heart without angina pectoris Merari Kevin MD [address] [place] [address] Maya Duran MD [address] [address] Status Reason Specialty Diagnoses / Procedures Referred By Contact Referred To Contact Closed Cardiology Diagnoses Atherosclerosis of [place] coronary artery of [place] heart without angina pectoris Procedures ECG 12 lead Maya Duran MD [address] [place] [address] Status Reason Specialty Diagnoses / Procedures Referred By Contact Referred To Contact Authorized Specialty Services Required/Patie nt's Best Interest Orthopedic Surgery Diagnoses Rheumatoid arthritis, involving unspecified site, unspecified whether rheumatoid factor present (HCC) Merari Kevin MD [address] [place] [address] Roni Bowens MD [address] [address] Specialty Diagnoses / Procedures Referred By Contac t Referred To Contact Cardiology Diagnoses PAD (peripheral artery disease) (HCC) Procedures Segmental Doppler Lower Extremity Arterial Imani Hancock, RAJ [address] [place] [address] [facility] [address] [facility] [place] [address] Referral ID Status Reason Start Date Expiration Date V isits Requested Visits Authorized [id number] New Request 07/24/2021 07/24/2022 1 1 Specialty Diagnoses / Procedures Referred By Contac t Referred To Contact Diagnoses Other osteoporosis, unspecified pathological fracture presence Procedures BONE DENSITY AXIAL (HIP, PELVIS, SPINE) Mustapha Nj MD [address] [place] [address] Referral ID Status Reason Start Date Expiration Date V isits Requested Visits Authorized [id number] New Request 09/26/2020 10/21/2021 1 1 Specialty Diagnoses / Procedures Referred By Contac t Referred To Contact Diagnoses Left knee pain, unspecified chronicity Procedures XR KNEE LEFT WITH BILATERAL STANDING 1 VIEW Radha Childs PA-C [address] [facility] [address] [place] [address] Referral ID Status Reason Start Date Expiration Date V isits Requested Visits Authorized [id number] New Request 02/14/2021 03/11/2022 1 1 Specialty Diagnoses / Procedures Referred By Contac t Referred To Contact Cardiology Diagnoses Localized swelling of left lower extremity Procedures Ultrasound duplex venous leg left Merari Kevin MD [address] [address] [facility] [address] [place] [address] Referral ID Status Reason Start Date Expiration Date V isits Requested Visits Authorized [id number] New Request 12/12/2021 12/12/2022 1 1 Specialty Diagnoses / Procedures Referred By Contac t Referred To Contact Radiology Diagnoses Chest pain, unspecified type Procedures CT Pulmonary Arteries Merari Kevin MD [address] [address] Referral ID Status Reason Start Date Expiration Date V isits Requested Visits Authorized [id number] Pending Review 12/12/2021 12/12/2022 1 1 Specialty Diagnoses / Procedures Referred By Contac t Referred To Contact Cardiology Diagnoses Diminished pulse Maya Duran MD [address] [place] [address] [facility] Christinaranza yolanda [address] [facility] [place] [address] Referral ID Status Reason Start Date Expiration Date V isits Requested Visits Authorized [id number] Authorized 05/07/2022 05/07/2023 1 1 Specialty Diagnoses / Procedures Referred By Contac t Referred To Contact Cardiology Diagnoses Localized swelling of left lower extremity Abnormal electrocardiogram (ECG) (EKG) Procedures Echocardiogram complete Maya Duran MD [address] [place] [address] Referral ID Status Reason Start Date Expiration Date V isits Requested Visits Authorized [id number] New Request 05/07/2022 05/07/2023 1 1 Specialty Diagnoses / Procedures Referred By Contac t Referred To Contact Radiology Diagnoses Calculus of gallbladder with biliary obstruction but without cholecystitis Procedures US Abdomen Limited Study Matilda Chi MD [id number] [place] [address] Referral ID Status Reason Start Date Expiration Date V isits Requested Visits Authorized [id number] Authorized 12/05/2022 12/05/2023 1 1 Specialty Diagnoses / Procedures Referred By Contac t Referred To Contact Radiology Diagnoses Dilated intrahepatic bile duct Procedures MR MRCP Matilda Chi MD [address] [address] [facility] [address] [place] [address] Referral ID Status Reason Start Date Expiration Date V isits Requested Visits Authorized [id number] New Request 12/05/2022 12/05/2023 1 1 Specialty Diagnoses / Procedures Referred By Contac t Referred To Contact Radiology Diagnoses Left lower quadrant abdominal pain Procedures CT Angiogram Abdomen Pelvis Merari Kevin MD [id number] [place] [address] Referral ID Status Reason Start Date Expiration Date V isits Requested Visits Authorized [id number] New Request 01/22/2023 01/22/2024 1 1 Specialty Diagnoses / Procedures Referred By Contac t Referred To Contact Vascular Surgery / Cardiology Diagnoses Left lower quadrant abdominal pain Merari Kevin MD [address] [phone] Miquel Clements III, DO [address] [phone] Referral ID Status Reason Start Date Expiration Date V isits Requested Visits Authorized [id number] Authorized 01/22/2023 01/22/2024 1 1 Additional Source Comments INFORMATION SOURCE (unrecogn ized section and content) DATE CREATED AUTHOR AUTHOR'S ORGANIZ ATION 03/19/[address] [facility] DATE CREATED AUTHOR AUTHOR'S ORGANIZ ATION 09/22/2020 [employer] DATE CREATED AUTHOR AUTHOR'S ORGANIZ ATION 10/14/[address] [facility] DATE CREATED AUTHOR AUTHOR'S ORGANIZ ATION 12/16/2020 [facility] DATE CREATED AUTHOR AUTHOR'S ORGANIZ ATION 02/22/2023 [facility] DATE CREATED AUTHOR AUTHOR'S ORGANIZ ATION 07/06/2023 [facility] DATE CREATED AUTHOR AUTHOR'S ORGANIZ ATION 07/13/2023 [facility] DATE CREATED AUTHOR AUTHOR'S ORGANIZ ATION 07/20/2023 [facility] Reason for Visit (unrecogniz ed section and content) Reason Comments Coronary Artery Disease transfer care [facility] Cardiology. No cardiac complaints Status Reason Specialty Diagnoses / Procedures Referred By Contact Referred To Contact Closed Specialty Services Required/Patient 's Best Interest Cardiology Diagnoses Atherosclerosis of [place] coronary artery of [place] heart without angina pectoris Merari Kevin MD [address] [phone] Maya Duran MD [address] [place] [address] Reason Comments Knee Pain LEFT, PRESENT X YEA RS , REFERRAL TO ORTHO REQUESTED Reason Comments Foot Pain Right 1st mpj pain. Said it was red last week.. Was painful agaist the sheets past month. Reason Comments Follow-up 6 mo/no complaints Reason Comments Foot Pain Follow up injection for right great toe joint pain. Said the foot was red and painful. Just settled down over the past four days. Meloxicam made her vomit. Reason Onset Date Comments Medicare Wellness Visit Fall Risk Screening 06/04/2021 Reason Comments Follow-up Pt would like to dis cuss surgery on the R foot Specialty Diagnoses / Procedures Referred By Angie cramer Referred To Contact Diagnoses Other osteoporosis, unspecified pathological fracture presence Procedures BONE DENSITY AXIAL (HIP, PELVIS, SPINE) Mustapha Nj MD [address] [facility] [address] [place] [address] Referral ID Status Reason Start Date Expiration Date V isits Requested Visits Authorized [id number] New Request 09/26/2020 10/21/2021 1 1 Specialty Diagnoses / Procedures Referred By Angie cramer Referred To Contact Diagnoses Left knee pain, unspecified chronicity Procedures XR KNEE LEFT WITH BILATERAL STANDING 1 VIEW Radha Childs, HERMILO [address] [facility] [address] [place] [address] Referral ID Status Reason Start Date Expiration Date V isits Requested Visits Authorized [id number] New Request 02/14/2021 03/11/2022 1 1 Reason Comments Follow-up 6 mo/no cardiac conc erns at this time Reason Comments Leg Swelling Both legs (not as ba d today), pain running down both sides, around rib cage possibly from her statin? Reason Comments Joint Injection Reason Comments Results Doppler review. Pt s tates she would like to discuss bunion removal surgery. Reason Comments Pre-op Exam Reason Comments Post-op 1st week post op for right foot. Dos 04-04-22. Pt states she only takes the pain meds at night time. Pt states she has been doing well post operatively. Reason Comments Follow-up 6 mo/c/o ankle swell ing Reason Comments Post-op R foot exostosis of bone - repeat xrays - pt is doing well Reason Comments Joint Injection Left knee CS injecti on. Last injection date 01/15/22 Reason Onset Date Comments Medicare Wellness Visit Gap Closure (Health Maintenance) There are no preventive care reminders to display for this patient. Fall Risk Screening 06/10/2022 Reason Comments Infusion Visit Specialty Diagnoses / Procedures Referred By Angie cramer Referred To Contact Diagnoses Senile osteoporosis Infusion [facility] [address] [place] [address] Infusion [facility] [address] [place] [address] Referral ID Status Reason Start Date Expiration Date V isits Requested Visits Authorized [id number] Auth Not Needed 11/21/2020 100 100 Reason Comments Follow-up Leg swelling Reason Comments Joint Injection Left knee injection Reason Comments Follow-up 6 month f/u on chron ic conditions. Gap Closure (Health Maintenance) There a re no preventive care reminders to display for this patient. Reason Comments Follow-up Osteoporosis No falls or fracture s Reason Onset Date Comments Medication Refill 02/12/2023 Specialty Diagnoses / Procedures Referred By Angie cramer Referred To Contact Gastroenterology Diagnoses Pancreatic cyst Merari Kevin MD [address] [address] Le Anglin MD [facility] [place] [address] Referral ID Status Reason Start Date Expiration Date Visits Re quested Visits Authorized [id number] Closed 01/29/2023 01/29/2024 1 1 Reason Comments Follow-up 3 mon fu Reason Comments Forein Body of the Ear Foreign body of t he right ear New Pt Reason Comments Medicare Wellness Visit Care Teams (unrecognized sec tion and content) Knock Up Assembler Relationship Specialty Start Date End Date Merari Kevin MD [address] [phone] PCP - General Internal Medicine 11/08/20 Knock Up Assembler Relationship Specialty Start Date End Date Merari Kevin MD [address] [phone] PCP - General Internal Medicine 11/08/20 Knock Up Assembler Relationship Specialty Start Date End Date Merari Kevin MD [address] [phone] PCP - General Internal Medicine 11/08/20 Knock Up Assembler Relationship Specialty Start Date End Date Merari Kevin MD [address] [phone] PCP - General Internal Medicine 11/08/20 Knock Up Assembler Relationship Specialty Start Date End Date Merari Kevin MD [address] [phone] PCP - General Internal Medicine 12/05/20 Knock Up Assembler Relationship Specialty Start Date End Date Merari Kevin MD [address] [phone] PCP - General Internal Medicine 11/08/20 Knock Up Assembler Relationship Specialty Start Date End Date Merari Kevin MD [address] [phone] PCP - General Internal Medicine 11/08/20 Knock Up Assembler Relationship Specialty Start Date End Date Merari Kevin MD [address] [address] PCP - General Internal Medicine 11/08/20 Knock Up Assembler Relationship Specialty Start Date End Date Merari Kevin MD [address] [address] PCP - General Internal Medicine 11/08/20 Knock Up Assembler Relationship Specialty Start Date End Date Merari Kevin MD [address] [address] PCP - General Internal Medicine 12/05/20 Knock Up Assembler Relationship Specialty Start Date End Date Merari Kevin MD [address] [address] PCP - General Internal Medicine 11/08/20 Knock Up Assembler Relationship Specialty Start Date End Date Merari Kevin MD [address] [address] PCP - General Internal Medicine 11/08/20 Knock Up Assembler Relationship Specialty Start Date End Date Merari Kevin MD [address] [address] PCP - General Internal Medicine 11/08/20 Knock Up Assembler Relationship Specialty Start Date End Date Merari Kevin MD [address] [address] PCP - General Internal Medicine 11/08/20 Knock Up Assembler Relationship Specialty Start Date End Date Merari Kevin MD [address] [address] PCP - General Internal Medicine 11/08/20 Maya Duran MD 45 [place] [address] Cardiology 05/08/22 Imani Hancock DPM 45 [place] [address] Consulting Physician Podiatry 05/08/22 Miquel Clements III, DO [address] [place] [address] Consulting Physician Vascular Surgery 05/09/22 Knock Up Assembler Relationship Specialty Start Date End Date Merari Kevin MD [address] [address] PCP - General Internal Medicine 11/08/20 Maya Duran MD [address] [facility] [address] Cardiology 05/08/22 Imani Hancock DPM [address] [facility] [address] Consulting Physician Podiatry 05/08/22 Miquel Clements III, DO [address] [facility] [address] Consulting Physician Vascular Surgery 05/09/22 Knock Up Assembler Relationship Specialty Start Date End Date Merari Kevin MD [address] [address] PCP - General Internal Medicine 12/05/20 Knock Up Assembler Relationship Specialty Start Date End Date Merari Kevin MD [address] [address] PCP - General Internal Medicine 11/08/20 Maya Duran MD [address] [facility] [address] Cardiology 05/08/22 Imani Hancock DPM [address] [facility] [address] Consulting Physician Podiatry 05/08/22 Miquel Clements III, DO [address] [facility] [address] Consulting Physician Vascular Surgery 05/09/22 Knock Up Assembler Relationship Specialty Start Date End Date Merari Kevin MD [address] [address] PCP - General Internal Medicine 12/05/20 Knock Up Assembler Relationship Specialty Start Date End Date Merari Kevin MD [address] [address] PCP - General Internal Medicine 11/08/20 Merari Kevin MD [address] [address] PCP - CMS Attributed Provider 10/05/21 Maya Duran MD 45 [place] [address] Cardiology 05/08/22 Imani Hancock DPM 45 [place] [address] Consulting Physician Podiatry 05/08/22 Miquel Clements III, 45 [place] [address] Consulting Physician Vascular Surgery 05/09/22 Knock Up Assembler Relationship Specialty Start Date End Date Merari Kevin MD [address] [address] PCP - General Internal Medicine 11/08/20 Merari Kevin MD [address] [address] PCP - CMS Attributed Provider 10/05/21 Maya Duran MD 45 [place] [address] Cardiology 05/08/22 Imani Hancock DPM [address] [phone] Consulting Physician Podiatry 05/08/22 Miquel Clements III, DO [address] [phone] Consulting Physician Vascular Surgery 05/09/22 Knock Up Assembler Relationship Specialty Start Date End Date Merari Kevin MD [facility] [place] [address] PCP - General Internal Medicine 11/08/20 Maya Duran MD 45 [place] [address] Cardiology 05/08/22 Imani Hancock DPM [address] [place] [address] Consulting Physician Podiatry 05/08/22 Miquel Clements III, DO [address] [place] [address] Consulting Physician Vascular Surgery 05/09/22 Knock Up Assembler Relationship Specialty Start Date End Date Merari Kevin MD [facility] [place] [address] PCP - General Internal Medicine 12/05/20 Knock Up Assembler Relationship Specialty Start Date End Date Merari Kevin MD [facility] [phone] PCP - General Internal Medicine 12/05/20 Knock Up Assembler Relationship Specialty Start Date End Date Merari Kevin MD [facility] [phone] PCP - General Internal Medicine 11/08/20 [place] [address] Cardiology 05/08/22 Imani Hancock [place] [address] Consulting Physician Podiatry 05/08/22 Miquel Clements III, DO [address] [phone] Consulting Physician Vascular Surgery 05/09/22 Knock Up Assembler Relationship Specialty Start Date End Date Merari Kevin MD [facility] [place] [address] PCP - General Internal Medicine 11/08/20 Maya Duran MD [address] [phone] Cardiology 05/08/22 Imani Hancock [place] [address] Consulting Physician Podiatry 05/08/22 Miquel Clements III, DO [address] [phone] Consulting Physician Vascular Surgery 05/09/22 Knock Up Assembler Relationship Specialty Start Date End Date Merari Kevin MD [address] [phone] PCP - General Internal Medicine 12/05/20 Knock Up Assembler Relationship Specialty Start Date End Date Merari Kevin MD [address] [phone] PCP - General Internal Medicine 11/08/20 Maya Duran MD [address] [phone] Cardiology 05/08/22 Imani Hancock DPM [address] [phone] Consulting Physician Podiatry 05/08/22 Miquel Clements III, [place] [address] Consulting Physician Vascular Surgery 05/09/22 Knock Up Assembler Relationship Specialty Start Date End Date Merari Kevin MD [address] [phone] PCP - General Internal Medicine 11/08/20 Maya Duran MD [address] [phone] Cardiology 05/08/22 Imani Hancock DPM [address] [place] [address] Consulting Physician Podiatry 05/08/22 Miquel Clements III, DO [address] [phone] Consulting Physician Vascular Surgery 05/09/22 Knock Up Assembler Relationship Specialty Start Date End Date Merari Kevin MD [address] [address] PCP - General Internal Medicine 11/08/20 Maya Duran MD [address] [place] [address] Cardiology 05/08/22 Imani Hancock DPM [address] [phone] Consulting Physician Podiatry 05/08/22 Miquel Clements III, [place] [address] Consulting Physician Vascular Surgery 05/09/22 Knock Up Assembler Relationship Specialty Start Date End Date Merari Kevin MD [address] [phone] PCP - General Internal Medicine 11/08/20 Maya Duran MD [address] [place] [address] Cardiology 05/08/22 Imani Hancock DPM [address] [place] [address] Consulting Physician Podiatry 05/08/22 Miquel Clements III, DO [address] [phone] Consulting Physician Vascular Surgery 05/09/22 Knock Up Assembler Relationship Specialty Start Date End Date Jony Cruz DO [address] [place] [address] PCP - General Internal Medicine 04/29/23 Maya Duran MD [address] [phone] Cardiology 05/08/22 Imani Hancock DPM [address] [phone] Consulting Physician Podiatry 05/08/22 Miquel Clements III, DO [address] [phone] Consulting Physician Vascular Surgery 05/09/22 Knock Up Assembler Relationship Specialty Start Date End Date Jony Cruz DO [address] [place] [address] PCP - General Internal Medicine 04/29/23 Maya Duran MD [address] [phone] Cardiology 05/08/22 Imani Hancock DPM [address] [phone] Consulting Physician Podiatry 05/08/22 Miquel Clements III, DO [address] [place] [address] Consulting Physician Vascular Surgery 05/09/22 Knock Up Assembler Relationship Specialty Start Date End Date Joyn Cruz DO [address] [phone] PCP - General Internal Medicine 04/29/23 Maya Duran MD [address] [place], [place] [phone] Cardiology 05/08/22 Imani Hancock DPM [address] [place], [place] [phone] Consulting Physician Podiatry 05/08/22 Miquel Clements III, DO [address] [place] [address] Consulting Physician Vascular Surgery 05/09/22 FOR RECORDS PERTAINING TO PATIENTS WHO ARE OR HAVE BEEN ENROLLED IN A CHEMICAL DEPENDENCY/SUBSTANCEABUSE PROGRAM, SOME INFORMATION MAY BE OMITTED. This clinical summary was aggregated from multiple sources. Caution should be exercised in using it in the provision of clinical care. This summary normalizes information from multiple sources, and as a consequence, information in this document may materially change the coding, format and clinical context of patient data. In addition, data may be omitted in some cases. CLINICAL DECISIONS SHOULD BE BASED ON THE PRIMARY CLINICAL RECORDS. [email or web address] [email or web address]. provides no warranty or guarantee of the accuracy or completeness of information in this document.
[2023-08-29 09:11] LABS: Pathologist Review Reviewed
== END | disposition home or self-care (01) ==
PROVIDERS: PCP Internal Medicine; Visit Provider Internal Medicine Rheumatology
DX: M06.4 Inflammatory polyarthropathy (principal); M17.0 Bilateral primary osteoarthritis of knee; Z79.899 Other long term (current) drug therapy
CPT/HCPCS: 87070; 87075; 87205; 89050; 89051; 89060